=== PATIENT | female | born 1985 ===

== ENCOUNTER 2023-07-18 10:39 | Inpatient (IN) | payer OTHER, SELFPAY ==
--- NOTE | ~2023-07-18 | US_ITS ---
EXAMINATION: US ABDOMEN LIMITED CLINICAL INFORMATION: Right upper quadrant pain.. COMPARISON: None available. TECHNIQUE: Real-time imaging of the right upper quadrant abdominal viscera. FINDINGS: PANCREAS: Normal. LIVER: There is a small there is a small echogenic calcification left hepatic lobe measuring 0.3 x 0.3 x 0.4). The liver is normal in size. The liver contour is normal. Parenchymal echogenicity is normal. No focal hepatic lesion. There is no intrahepatic biliary duct dilatation seen. GALLBLADDER: There is a large radiopaque gallstone with echogenic shadowing is noted. It measures approximately 2 cm in maximum dimension. The gallbladder wall thickness is 0.2). COMMON BILE DUCT: Normal in caliber measuring 0.3 cm in diameter. RIGHT KIDNEY: Normal. No hydronephrosis. No renal calculi or focal parenchymal lesions. The kidney measures 10.9 cm in maximum dimension. FREE FLUID: None. Incidental finding of a small right pleural effusion. US/US abdomen limited IMPRESSION: 1. Large gallstone without wall thickening. 2. Small calcification left hepatic lobe. 3. Visualized pancreas, right kidney and CBD is unremarkable. 4. 4. Small right pleural effusion.
--- NOTE | ~2023-07-18 | US_ITS ---
EXAMINATION: US RETROPERITONEAL LIMITED (RENAL ONLY) CLINICAL INFORMATION: Acute kidney injury. COMPARISON: CT abdomen and pelvis 07/18/2023. TECHNIQUE: Real-time imaging of the kidneys. FINDINGS: RIGHT KIDNEY: 10.6 x 5.7 x 5.8 cm (SAG x AP x TRV). The kidney is normal in size, and contour. Renal cortical echogenicity is increased and there is renal cortical thickening. No calculi or focal parenchymal lesions. No hydronephrosis. Small right renal stones seen by CT is not appreciated. LEFT KIDNEY: 11.4 x 6.4 x 5.5 cm (SAG x AP x TRV). The kidney is normal in size, and contour. Renal cortical echogenicity is increased and there is renal cortical thickening. No calculi or focal parenchymal lesions. No hydronephrosis. US/US renal BI IMPRESSION: Echogenic kidneys with renal cortical thickening. Appearance is suggestive of medical renal disease.
--- NOTE | ~2023-07-18 | CT_ITS ---
EXAMINATION: CT ABDOMEN AND PELVIS WITHOUT CONTRAST CLINICAL INFORMATION: Right-sided flank pain COMPARISON: None available. TECHNIQUE: Multidetector volumetric imaging was performed from the superior aspect of the liver through the pubic symphysis. Sagittal and coronal reformatted images were obtained on the technologist's workstation. Evaluation of solid organs is limited given lack of IV contrast and paucity of intra-abdominal fat. This CT examination was performed using dose optimization techniques as appropriate, variously including the following: *Automated exposure control *Adjustment of mA and/or kV according to patient size (this includes techniques or standardized protocols for targeted exams where dose is matched to indication/reason for exam; i.e. extremities or head) *Use of iterative reconstruction technique DLP: 287 mGy-cm FINDINGS: Visualized lung bases demonstrate mild dependent atelectasis with some mild bilateral bronchiectasis. Surgical changes are noted within the right middle lobe. The liver is mildly enlarged demonstrates diffusely decreased attenuation. Small calcified granuloma noted within the left hepatic lobe. Large, approximately 2 cm gallstone noted within otherwise unremarkable appearing gallbladder. The pancreas, spleen and adrenal glands are unremarkable. Symmetrically sized kidneys. There is a 3 mm nonobstructing calculus noted within the midpole the right kidney. No left-sided renal calculi identified. There is no hydronephrosis of either kidney. Normal caliber loops of small and large bowel. There is a small amount of stranding within the right and left paracolic gutter which is nonspecific. A few normal-sized lymph nodes also noted in these regions. Normal caliber abdominal aorta. The bladder is decompressed and therefore not accurately evaluated, however, there does appear to be diffuse bladder wall thickening, nonspecific finding. Unremarkable CT appearance of the uterus. Trace amount of free pelvic fluid is nonspecific but likely physiologic in a female of this age. No inguinal lymphadenopathy. No acute osseous abnormality. CT/CT abdomen pelvis wo IV con IMPRESSION: 1. 3 mm nonobstructing right renal calculus. No left-sided renal calculi. No hydronephrosis of either kidney. 2. Diffusely decreased liver attenuation suggesting hepatic steatosis. Correlation with liver enzymes recommended. 3. Cholelithiasis. 4. Small amount of stranding within the right and left paracolic gutter. A few normal-sized lymph nodes also noted in these regions. These findings are nonspecific. Mesenteric adenitis is within the differential. Clinical correlation recommended. 5. The bladder is decompressed and therefore not accurately evaluated, however, there does appear to be diffuse bladder wall thickening, a nonspecific finding. Correlation with urinary analysis may be warranted. Fleischner guidelines were followed.
--- NOTE | ~2023-07-18 | XR_ITS ---
EXAMINATION: XR CHEST CLINICAL INFORMATION: Interstitial lung disease. COMPARISON: None available. TECHNIQUE: 2 views of the chest were obtained. FINDINGS: Patient is status post previous right lung surgery with suture lines in place within the mid and lower right lung. The right hilar region is obscured which may be related to postoperative change. There is some discoid density seen about the anteroinferior aspect of the right upper lobe. There also appears to be some mild prominence of the right paratracheal soft tissues; however, this may be related to fatty deposition rather than lymphadenopathy. Previous studies are not available for comparison as to whether the findings are acute or chronic. Heart is of normal size. No evidence of pulmonary edema. No pneumothorax or pleural effusion. XR/XR chest 2V IMPRESSION: Post surgical change right lung with portions of the right hilum and heart border obscured which may be postoperative in nature; however, acute process cannot be excluded and comparison with prior imaging from another institution is recommended.
[2023-07-18 10:48] VITALS: BP 144/93; PULSE 111; RESP 19; TEMP 36.6; O2SAT 144; BMI 19.6
--- NOTE | 2023-07-18 13:27 | ED.ABDPAIN ---
HPI - Abdominal Pain General Chief Complaint: Abdominal Pain Stated Complaint: Back Pain ? Kidney Stone Time Seen by Provider: 07/18/23 13:24 Source: patient Mode of arrival: ambulatory Limitations: no limitations History of Present Illness HPI narrative: This is a 37 years old of female presented to the emergency department complaining of right flank pain since Sunday. He denies any fever chills vomiting and diarrhea she has he has history of interstitial lung disease is on prednisone elicited complaint: flank pain Pertinent past history: none Onset (ago): day(s) (3) Pain Consistency: constant Location: R flank Severity: moderate Quality: cramping Radiation: none Exacerbating factors: nothing Related Data Home Medications Medication Instructions Recorded Confirmed aripiprazole 5 mg tablet 5 mg PO DAILY 07/18/23 07/18/23 clonazepam 1 mg tablet 1 mg PO BID 07/18/23 07/18/23 prednisone 10 mg tablet 25 mg PO DAILY 07/18/23 07/18/23 Allergies Allergy/AdvReac Type Severity Reaction Status Date / Time No Known Allergies Allergy Verified 07/18/23 10:47 Review of Systems Constitutional: Reports no additional constitutional complaints Cardiovascular: Reports no additional cardiovascular complaints Hematologic/Lymphatic: Reports no additional hematologic/lymphatic complaints PMFSH Past Medical History PMFSH Narrative: This is still none disease Social History Social History Smoked in Last 30 Days: Yes Use of substances other than those prescribed or required for medical reasons: Yes Substance Use Type: Marijuana Advance Directives: No Patient : No Physical Exam ED Vital Signs: Vital Signs - 24 hr 07/18/23 10:48 07/18/23 13:39 07/18/23 16:00 Temperature 98 F 97.8 F 97.8 F Pulse Rate 111 H 100 108 H Respiratory Rate 19 18 18 Blood Pressure 144/93 H 91/63 106/69 Pulse Oximetry 144 H 100 100 Oxygen Delivery Method Room Air Room Air Room Air BMI result Body Mass Index 19.6 Const General: cooperative, comfortable and no acute distress Nutritional Appearance: average body habitus Orientation/consciousness: patient oriented x3 Limitations: no limitations HENMT Head: Yes normal to inspection General nose exam: Normal external nose present Face and sinus: Yes normal facial exam Mouth: Normal oral and palatal mucosa present Neck Neck: Yes normal visual inspection Chest Chest palpation & inspection: normal inspection of the chest Resp Effort & Inspection: normal respiratory effort Auscultation: clear to auscultation bilaterally Cardio Jugular venous distension: no JVD Rate: regular rate Rhythm: regular rhythm GI Inspection: Yes normal to inspection Palpation (GI): Soft to palpation, not firm, nontender and no guarding Auscultation: normal bowel sounds Skin General skin exam: no rashes or lesions noted and elasticity normal Lesions: no lesions Rashes: no rashes Neuro General: patient oriented x3 Medical Decision Making Medical Decision Making [facility] Narrative: Patient presented with the right flank pain we will get the labs UA and CT and reassess Differential Diagnosis Differential Diagnoses: The differential diagnosis associated with the presentation includes Kidney stone/pyelonephritis Admission/Observation Consideration of admission/observation: Escalation of care including admission/observation considered Consult Healthcare Provider Management of the patient was discussed with: Hospitalist dr Khoury Lab Data [facility] Lab Attestation statement: I reviewed the patient's lab results. 07/18/23 14:41 07/18/23 14:41 Labs: Lab Results 07/18/23 07/18/23 Range/Units 14:41 15:53 WBC 11.5 H (4.8-10.8) X10*3/uL RBC 3.60 L (4.20-5.50) X10*6/uL Hgb 10.6 L (12.0-16.0) g/dl Hct 30.3 L (37.0-47.0) % MCV 84.2 (80.0-98.0) fL MCH 29.4 (27.0-33.0) pg MCHC 35.0 (31.0-35.0) g/dl RDW 13.4 (11.0-16.0) % Plt Count 116 L (160-400) X10*3/uL MPV 10.4 (9.4-12.3) fL Immature Gran % (Auto) Cancelled Neut % (Auto) Cancelled Lymph % (Auto) Cancelled [place] % (Auto) Cancelled Eos % (Auto) Cancelled Baso % (Auto) Cancelled Lymph # (Auto) Cancelled [place] # (Auto) Cancelled Eos # (Auto) Cancelled Baso # (Auto) Cancelled Abs Immat Gran (auto) Cancelled Absolute Neuts (auto) Cancelled Absolute Nucleated RBC 0.000 (0.0-0.012) X10*3/uL Nucleated RBC % (auto) 0.0 (0.0-0.2) /100WBC Neutrophils % (Manual) 77 H (45-73) % Band Neutrophils % 9 H (3-5) % Lymphocytes % (Manual) 2 L (20-40) % Monocytes % (Manual) 8 (2-11) % Eosinophils % (Manual) 1 (0-4) % Metamyelocytes % 2 % Myelocytes % 1 % Abs Neuts (Manual) 9.9 H (2.0-8.3) X10*3/uL Lymphocytes # (Manual) 0.2 L (1.2-4.9) X10*3/uL Monocytes # (Manual) 0.9 (0.1-1.2) X10*3/uL Eosinophils # (Manual) 0.1 (0.0-0.4) X10*3/uL Metamyelocytes # 0.2 X10*3/uL Myelocytes # 0.1 X10*/uL Toxic Vacuolation PRESENT Dohle Bodies PRESENT Platelet Estimate SLIGHTLY DECREASED (NORMAL) Plt Morphology Comment NORMAL RBC Morphology NOTED Earle Cells 1+ (0-2) /OIF Sodium 135 (135-145) mmol/L Potassium 3.2 L (3.3-5.1) mmol/L Chloride 100 (96-108) mmol/L Carbon Dioxide 20 L (22-29) mmol/L Anion Gap 18 (12-20) BUN 41 H (9-16) mg/dL Creatinine 3.83 H (0.5-1.4) mg/dL Estim Creat Clear Calc 12.3 Estimated GFR 13 Random Glucose 98 (60-115) mg/dL Calcium 8.6 (8.4-10.2) mg/dL Total Bilirubin 1.5 H (0.0-1.0) mg/dL AST 31 (5-31) U/L ALT 19 (0-31) U/L Alkaline Phosphatase 159 H (39-117) U/L Total Protein 6.0 L (6.5-8.0) g/dL Albumin 2.7 L (3.5-5.0) g/dL Beta HCG, Quant < 2 mIU/mL Urine Color Dark Yellow Urine Appearance Turbid Urine pH 5.5 (5.0-9.0) Ur Specific [place] 1.020 (1.005-1.025) Urine Protein 300 (3+) H (Neg-Trace) mg/dL Urine Glucose (UA) Negative (Negative) mg/dL Urine Ketones Trace (Negative) mg/dL Urine Blood Moderate (2+) H (Negative) Urine Nitrite Negative (Negative) Ur Leukocyte Esterase Moderate (2+) H (Negative) Urine RBC >20 H (0-2) /HPF Urine WBC >50 H (0-5) /HPF Ur Squamous Epith Cells 6-10 (0-2) /HPF Urine Bacteria 4+ (None Seen) Hyaline Casts >20 (0-2) /LPF Independent Interpretation I performed an independent interpretation of an: CT Scan Interpretation: no hydro Radiology Impression Discussion of test interpretation with radiology: I have reviewed the radiologist's reading. Radiologist Impression: The bladder is decompressed and therefore not accurately evaluated, however, there does appear to be diffuse bladder wall thickening, nonspecific finding. Unremarkable CT appearance of the uterus. Trace amount of free pelvic fluid is nonspecific but likely physiologic in a female of this age. No inguinal lymphadenopathy. No acute osseous abnormality. CT/CT abdomen pelvis wo IV con IMPRESSION: 1. 3 mm nonobstructing right renal calculus. No left-sided renal calculi. No hydronephrosis of either kidney. 2. Diffusely decreased liver attenuation suggesting hepatic steatosis. Correlation with liver enzymes recommended. 3. Cholelithiasis. 4. Small amount of stranding within the right and left paracolic gutter. A few normal-sized lymph nodes also noted in these regions. These findings are nonspecific. Mesenteric adenitis is within the differential. Clinical correlation recommended. 5. The bladder is decompressed and therefore not accurately evaluated, however, there does appear to be diffuse bladder wall thickening, a nonspecific finding. Correlation with urinary analysis may be warranted. Fleischner guidelines were followed. Medications Administered Discontinued Medications Generic Name Dose Route Start Last Admin Trade Name Freq PRN Reason Stop Dose Admin Sodium Chloride 1,000 mls @ 999 mls/hr 07/18/23 15:45 07/18/23 16:11 Ns IVCONT 07/18/23 16:45 999 mls/hr .Q1H1M CIRO Administration Ceftriaxone Sodium 1 gm/ 50 mls @ 100 mls/hr 07/18/23 16:27 07/18/23 16:38 Sodium Chloride IV 07/18/23 16:56 100 mls/hr ONCE ONE Administration Potassium Chloride 20 meq 07/18/23 16:08 07/18/23 16:37 Potassium Chloride Er 20 Meq Tab.Er.Prt PO 07/18/23 16:09 20 meq ONCE ONE Administration Discharge Plan Discharge Clinical Impression: Acute hypokalemia Acute renal failure Qualifiers: Acute renal failure type: unspecified Qualified Code(s): N17.9 - Acute kidney failure, unspecified UTI (urinary tract infection) Qualifiers: Urinary tract infection type: site unspecified Hematuria presence: with hematuria Qualified Code(s): N39.0 - Urinary tract infection, site not specified Proteinuria Qualifiers: Proteinuria type: isolated Isolated proteinuria type: without specific morphologic lesion Qualified Code(s): R80.0 - Isolated proteinuria Patient Disposition: Admitted As Inpatient
[2023-07-18 13:39] VITALS: BP 91/63; PULSE 100; RESP 18; TEMP 36.6; O2SAT 100
--- NOTE | 2023-07-18 13:50 | PC.NURSE ---
a&ox3, vss and up to date. pt slightly tachycardic at this time. pt c/o 04/16 bilateral abdominal/flank pain. pt states sx began on sunday. pt also c/o nausea/vomiting/fevers/chills. pt currently afebrile at this time. abdomen tender upon palpation. normoactive bs noted upon palpation. pt denies urinary sx at this time aside from difficulty initiating urine output. pt currently resting in no apparent distress at this time. respirations even and unlabored. call hudson placed within reach.
--- NOTE | 2023-07-18 14:42 | PC.NURSE ---
tech obtained urine and ag labs. tech also bladder scanned pt - 2ml of urine displayed on scan. provider aware at this time.
--- NOTE | 2023-07-18 15:05 | PC.NURSE ---
pt awaiting CT but per ED provider, pt cannot go to CT until urine is drawn. phlebotomy reached out to tech and stated amount of urine was insufficient for accurate results. provider aware. pt being instructed to drink PO fluids at this time.
[2023-07-18 15:16] LABS: Alanine Aminotransferase 19 U/L (0-31); Albumin Level 2.7 g/dL (3.5-5.0); Alkaline Phosphatase 159 U/L (39-117); Anion Gap 18 (12-20); Aspartate Amino Transferase 31 U/L (5-31); Bilirubin Total 1.5 mg/dL (0.0-1.0); Blood Urea Nitrogen 41 mg/dL (9-16); Calcium 8.6 mg/dL (8.4-10.2); Carbon Dioxide 20 mmol/L (22-29); Chloride 100 mmol/L (96-108); Creatinine Clr Calc Pharmacy 12.3; Estimated Glomerular Filt Rate 13; Glucose Random 98 mg/dL (60-115); Potassium 3.2 mmol/L (3.3-5.1); Sodium 135 mmol/L (135-145)
[2023-07-18 15:17] LABS: HCG Quantitative < 2 mIU/mL
--- NOTE | 2023-07-18 15:30 | PC.NURSE ---
pt currently in CT - urine obtained and sent to lab.
[2023-07-18 16:00] VITALS: BP 106/69; PULSE 108; RESP 18; TEMP 36.6; O2SAT 100
[2023-07-18 16:08] LABS: Appearance Urine Turbid; Color Urine Dark Yellow; Glucose Urine UA Negative (Negative); Leukocyte Esterase Urine Moderate (2+) (Negative); Nitrite Urine Negative (Negative); PH 5.5 (5.0-9.0); UMIC TRIGGER UACC YES; Urine Blood Moderate (2+) (Negative); Urine Ketones Trace mg/dL (Negative); Urine Protein 300 (3+) mg/dL (Neg-Trace)
[2023-07-18 16:21] LABS: Bacteria Urine 4+ (None Seen); Hyaline Casts Urine >20 /LPF (0-2); RBC Urine >20 /HPF (0-2); UACC Culture Trigger YES; WBC Urine >50 /HPF (0-5)
[2023-07-18] MEDS: Potassium Chloride ER 20 MEQ TAB.ER.PRT PO (16:37)
[2023-07-18] MEDS: cefTRIAXone sodium 1 GM in 0.9 % Sodium Chloride 50 ML IV (16:38)
--- NOTE | 2023-07-18 16:41 | PC.NURSE ---
medication administered per provider order.
--- NOTE | 2023-07-18 16:42 | PC.NURSE ---
admitting provider bedside speaking w/ pt. pt aware of plan of care at this time. pt unable to swallow medication - provider states hey will order powder form. will administer when able.
[2023-07-18 17:03] VITALS: BP 94/67; PULSE 108; RESP 16; O2SAT 99
--- NOTE | 2023-07-18 17:11 | P.HPHOSP_ITS ---
History of Present Illness Date of Service: 07/18/23 Attending physician on admission: Manuel Khoury Chief Complaint: right flank pain 37-year-old female with a history of asthma, chronic lung disease which she believes is interstitial lung disease presents to the ED earlier today for evaluation of right flank pain. She states the pain lasted from Sunday until Sunday radiating around to the right side of the abdomen. She believes she was passing a kidney stone so she was taking ibuprofen. However, yesterday, developed right-sided abdominal pain with associated dysuria, hematuria, decreased urinary output, and intermittent subjective fevers with sweats. She states she has also had a cough but this has been longstanding and she was recently started on prednisone by her imaging scheduler for this. She is endorsing nausea but no vomiting. No diarrhea, melena, hematochezia, lightheadedness, palpitations, shortness of breath, or chest pain. She denies any history of kidney disease. Denies any recent illness. On arrival, patient tachycardic to 111, vitals otherwise stable. She has leukocytosis of 11.5 with 9% bandemia, normocytic anemia with H/H 10.6/30.3%. Platelet count 116. Creatinine 3.83, baseline unknown. BUN 41. Sodium 135, potassium 3.2, chloride 100, CO2 20. Total bilirubin 1.5, AST/ALT within normal limits. Albumin 2.7. Urinalysis significant for 2+ blood, 2+ leukocytes, negative nitrites, 3+ protein, positive urinary sediment, 4+ bacteria. CT abdomen/pelvis shows 3 mm nonobstructing right renal calculus without any hydronephrosis or obstruction. There is also hepatic steatosis, cholelithiasis, and a small amount of stranding within the right and left paracolic gutter with possible mesenteric adenitis. There is noted to be diffuse bladder wall thickening. In the ED, received 1g IV ceftriaxone, 20meq potassium chloride, and 1 L IV NS. She reports he has been eating and drinking without difficulty. Review of Systems 2 Review of Systems: General: No fevers, malaise, unintentional weight loss Cardiovascular: No chest pain, palpitations, or leg edema Respiratory: No shortness of breath, wheezing. +cough GI: +nausea, +abd pain. No vomiting, diarrhea, constipation, melena, hematochezia : + dysuria, + hematuria, +decreased urinary output MSK: No myalgia, back pain. +R flank pain Neuro: No headaches, weakness, paresthesias Skin: No rashes or lesions [facility] Medical History Asthma Chronic lung disease Social History Smoked in Last 30 Days: Yes Use of substances other than those prescribed or required for medical reasons: Yes Substance Use Type: Marijuana Advance Directives: No Patient : No Meds Allergies Allergy/AdvReac Type Severity Reaction Status Date / Time No Known Allergies Allergy Verified 07/18/23 10:47 Active Medications: Current Medications Acetaminophen (Acetaminophen 325 Mg Tablet) 650 mg PO Q6H PRN PRN Reason: Pain, Mild (Pain Scale 1-3) Aripiprazole (Aripiprazole 5 Mg Tablet) 5 mg PO DAILY CIRO Clonazepam (Clonazepam 1 Mg Tablet) 1 mg PO BID [facility] Docusate Sodium (Docusate Sodium 100 Mg Capsule) 100 mg PO DAILY PRN PRN Reason: Constipation Heparin Sodium (Porcine) (Heparin Sodium,Porcine 5,000 Unit/Ml Vial) 5,000 unit SUBCUT Q12H CIRO Ceftriaxone Sodium 1 gm/ (Sodium Chloride) 50 mls @ 100 mls/hr IV Q24H CIRO Sodium Chloride (Ns) 1,000 mls @ 100 mls/hr IVCONT .Q10H CIRO Ondansetron HCl (Ondansetron Hcl 4 Mg/2 Ml Vial) 4 mg IVPUSH Q8H PRN PRN Reason: Nausea and Vomiting Prednisone (Prednisone 5 Mg Tablet) 25 mg PO DAILY [facility] Sodium Chloride (0.9 % Sodium Chloride Flush 3 Ml Syringe) 3 ml IVFLUSH QSHIFT CIRO Home Medications Medication Instructions Recorded Confirmed Last Taken Type aripiprazole 5 mg tablet 5 mg PO DAILY 07/18/23 07/18/23 Unknown History clonazepam 1 mg tablet 1 mg PO BID 07/18/23 07/18/23 Unknown History prednisone 10 mg tablet 25 mg PO DAILY 07/18/23 07/18/23 Unknown History Physical Exam 2 Vital Signs and Narrative: Vital Signs: Last Vital Signs Temp 97.8 F 07/18/23 16:00 Pulse 108 H 07/18/23 16:00 Resp 18 07/18/23 16:00 BP 106/69 07/18/23 16:00 Pulse Ox 100 07/18/23 16:00 O2 Del Method Room Air 07/18/23 16:00 BMI result Body Mass Index 19.6 Constitutional - Awake and Alert, No apparent distress Eyes - PERRLA, EOMI Cardiovascular - S1S2, RRR, No edema Respiratory - Normal lung expansion, Normal respiratory effort, No respiratory distress, wheezing bilateral lower lobes Gastrointestinal - diffuse abd pain without greatest in RUQ without guarding or rebound. ND; +BS - Mild R CVA tenderness Extremities - no calf tenderness bilaterally, no swelling Skin - Warm/Dry Neurological - Alert & oriented x3 Psychological - Appropriate affect Results Labs 07/18/23 14:41 07/18/23 14:41 Labs: Laboratory Results - last 24 hr 07/18/23 07/18/23 14:41 15:53 MCV 84.2 MCH 29.4 MCHC 35.0 RDW 13.4 Plt Count 116 L MPV 10.4 Immature Gran % (Auto) Cancelled Neut % (Auto) Cancelled Lymph % (Auto) Cancelled [place] % (Auto) Cancelled Eos % (Auto) Cancelled Baso % (Auto) Cancelled Lymph # (Auto) Cancelled [place] # (Auto) Cancelled Eos # (Auto) Cancelled Baso # (Auto) Cancelled Abs Immat Gran (auto) Cancelled Absolute Neuts (auto) Cancelled Absolute Nucleated RBC 0.000 Nucleated RBC % (auto) 0.0 Neutrophils % (Manual) 77 H Band Neutrophils % 9 H Lymphocytes % (Manual) 2 L Monocytes % (Manual) 8 Eosinophils % (Manual) 1 Metamyelocytes % 2 Myelocytes % 1 Abs Neuts (Manual) 9.9 H Lymphocytes # (Manual) 0.2 L Monocytes # (Manual) 0.9 Eosinophils # (Manual) 0.1 Metamyelocytes # 0.2 Myelocytes # 0.1 Toxic Vacuolation PRESENT Dohle Bodies PRESENT Platelet Estimate SLIGHTLY DECREASED Plt Morphology Comment NORMAL RBC Morphology NOTED Earle Cells 1+ (0-2) Anion Gap 18 Estim Creat Clear Calc 12.3 Estimated GFR 13 Random Glucose 98 Calcium 8.6 Total Bilirubin 1.5 H AST 31 ALT 19 Alkaline Phosphatase 159 H Total Protein 6.0 L Albumin 2.7 L Beta HCG, Quant < 2 Urine Color Dark Yellow Urine Appearance Turbid Urine pH 5.5 Ur Specific [place] 1.020 Urine Protein 300 (3+) H Urine Glucose (UA) Negative Urine Ketones Trace Urine Blood Moderate (2+) H Urine Nitrite Negative Ur Leukocyte Esterase Moderate (2+) H Urine RBC >20 H Urine WBC >50 H Ur Squamous Epith Cells 6-10 Urine Bacteria 4+ Hyaline Casts >20 Imaging Radiologist's Impressions: Impressions Abdomen/Pelvis CT 07/18/23 15:42 IMPRESSION: 1. 3 mm nonobstructing right renal calculus. No left-sided renal calculi. No hydronephrosis of either kidney. 2. Diffusely decreased liver attenuation suggesting hepatic steatosis. Correlation with liver enzymes recommended. 3. Cholelithiasis. 4. Small amount of stranding within the right and left paracolic gutter. A few normal-sized lymph nodes also noted in these regions. These findings are nonspecific. Mesenteric adenitis is within the differential. Clinical correlation recommended. 5. The bladder is decompressed and therefore not accurately evaluated, however, there does appear to be diffuse bladder wall thickening, a nonspecific finding. Correlation with urinary analysis may be warranted. Fleischner guidelines were followed. Assessment and Plan (1) Acute renal failure: Qualifiers: Acute renal failure type: unspecified Qualified Code(s): N17.9 - Acute kidney failure, unspecified Status: Acute (2) UTI (urinary tract infection): Qualifiers: Hematuria presence: with hematuria Urinary tract infection type: site unspecified Qualified Code(s): N39.0 - Urinary tract infection, site not specified; R31.9 - Hematuria, unspecified Status: Acute (3) Proteinuria: Qualifiers: Isolated proteinuria type: without specific morphologic lesion P roteinuria type: isolated Qualified Code(s): R80.0 - Isolated proteinuria Status: Acute (4) Acute hypokalemia: Status: Acute Plan 37-year-old female with a history of asthma, chronic lung disease which she believes is interstitial lung disease admitted for UTI with OUSMANE. #Acute kidney injury- etiology unclear at this time -creatinine 3.83, BUN 41. Baseline unknown. 3+ proteinuria -urine creatinine and urine sodium pending -continue IVF -avoid nephrotoxins -low-sodium diet -strict I&O -nephrology consult -follow renal function, electrolytes # acute UTI -no sepsis -UA with 2+ leukocytes, negative nitrites, 2+ blood, 3+ protein, positive urinary sediment, 4+ bacteria -IV ceftriaxone (initiated 07/19) -follow CBC, cultures #Mild hypokalemia -K3.2, likely r/t above -repleted, follow lytes #unspecified chronic lung disease -pt believes ILD diagnosed at age 3 (records requested from [facility]) -has chronic cough- robitussin prn -continue prednisone #Mild intermittent asthma -albuterol prn #Nicotine dependence -declines nrt -smoking cessation counseling DVT prophylaxis- heparin Full code Patient requires inpatient stay of at least 2 midnights for management of acute kidney injury with unclear etiology and hypokalemia requiring IV fluid resuscitation, expert consultation, and close monitoring of renal function electrolytes Time Spent With Patient Time: Total time managing care of this patient today ____ minutes. Quality Stroke Does the patient have a stroke diagnosis?: No VTE Prior VTE?: No VTE Risk Level:: Medical - moderate - high VTE Device Contraindication: Treatment Not Indicated VTE Drug Contraindication: N/A - Med Ordered
--- NOTE | 2023-07-18 17:12 | PHA.MEDREC ---
Pharmacy Consult ? Medication Reconciliation Pharmacy has completed the medication reconciliation. Patient confirmed medications on claim history. Reports she does not take venlafaxine. Patient then reported she takes Prednisone 25 mg however this is not on her claim history. Stephanie Buitrago, RandiD
[2023-07-18] MEDS: Potassium Chloride Packet 20 MEQ PACKET PO (17:21)
[2023-07-18] MEDS: Heparin Sodium,Porcine 5,000 UNIT/ML VIAL 5000 UNIT SUBCUT (17:21)
--- NOTE | 2023-07-18 17:24 | PC.NURSE ---
medication administered per provider order. resting comfortably in no apparent distress. respirations even and unlabored. call hudson placed within reach.
[2023-07-18] MEDS: Acetaminophen 325 MG TABLET 650 MG PO (18:06)
[2023-07-18] MEDS: 0.9 % Sodium Chloride 1,000 ML 100 ML IVCONT (18:07)
--- NOTE | 2023-07-18 19:20 | PC.NURSE ---
pt still rating headache pain an 8/10 despite medication administration.
--- NOTE | 2023-07-18 19:27 | PC.NURSE ---
This RN assumed care of patient at 1900. Patient alert and oriented, able to make needs known, was provided food
[2023-07-18 19:31] VITALS: BP 100/67; PULSE 102; RESP 18; TEMP 36.8; O2SAT 99
[2023-07-18] MEDS: clonazePAM 1 MG TABLET PO (20:26)
--- NOTE | 2023-07-18 20:27 | PC.NURSE ---
patient medicated per MAR.
--- NOTE | 2023-07-18 22:41 | PC.NURSE ---
Patient medicated per MAR. Patient's BP continued to rise while waiting for ambulance, patient medicated per MAR with Morphine
[2023-07-18] MEDS: traMADoL HCL 50 MG TABLET 25 MG PO (23:57)
[2023-07-19] VITALS: BP 90/61; PULSE 101; RESP 18; O2SAT 99
--- NOTE | 2023-07-19 00:06 | PC.NURSE ---
Patient walked to the bathroom with tech with steady gait. Patient AOx4, c/o 9/10 pain in abdomen. Patient medicated per DEC and MD French aware, plan of care ongoing
--- NOTE | 2023-07-19 03:55 | PC.NURSE ---
Report given at this time to Rachel CLARKE
[2023-07-19 04:23] VITALS: BMI 19.6
[2023-07-19] MEDS: traMADoL HCL 50 MG TABLET 25 MG PO ×2 (04:45→17:26)
[2023-07-19] MEDS: 0.9 % Sodium Chloride 1,000 ML 100 ML IVCONT (04:47)
[2023-07-19 07:09] VITALS: BP 91/53; PULSE 109; RESP 18; TEMP 36; O2SAT 96
[2023-07-19] MEDS: predniSONE 5 MG TABLET 25 MG PO (07:42)
[2023-07-19] MEDS: clonazePAM 1 MG TABLET PO ×2 (07:42→20:34)
[2023-07-19] MEDS: ARIPiprazole 5 MG TABLET PO (07:42)
[2023-07-19 08:41] LABS: Alanine Aminotransferase 16 U/L (0-31); Albumin Level 2.3 g/dL (3.5-5.0); Alkaline Phosphatase 160 U/L (39-117); Anion Gap 15 (12-20); Aspartate Amino Transferase 28 U/L (5-31); Bilirubin Total 1.5 mg/dL (0.0-1.0); Blood Urea Nitrogen 45 mg/dL (9-16); Calcium 7.5 mg/dL (8.4-10.2); Carbon Dioxide 16 mmol/L (22-29); Chloride 107 mmol/L (96-108); Creatinine Clr Calc Pharmacy 11.2; Estimated Glomerular Filt Rate 12; Glucose Random 118 mg/dL (60-115); Potassium 2.9 mmol/L (3.3-5.1); Sodium 135 mmol/L (135-145); Total Protein 5.3 g/dL (6.5-8.0)
[2023-07-19 09:13] LABS: Hematocrit 29.2 % (37.0-47.0); Mean Corpuscular HGB Conc 34.2 g/dl (31.0-35.0); Mean Corpuscular Volume 84.6 fL (80.0-98.0); Mean Platelet Volume 11.1 fL (9.4-12.3); Red Blood Count 3.45 X10*6/uL (4.20-5.50); Red Cell Distribution Width 13.7 % (11.0-16.0); White Blood Count 8.1 X10*3/uL (4.8-10.8)
[2023-07-19 09:17] LABS: Platelet Count 83 X10*3/uL (160-400)
[2023-07-19 09:36] LABS: C Reactive Protein 38.79 mg/dL (< or = 0.50); Magnesium 1.6 mg/dL (1.6-2.6)
[2023-07-19] MEDS: Potassium Chloride ER 20 MEQ TAB.ER.PRT 40 MEQ PO (09:43)
[2023-07-19 09:50] LABS: HBS Num1 20.33 mIU/mL (0-7.99); HBc Num1 0.09 S/CO (0.00-0.79); HBsAGNum1 0.66 S/CO (0.00-0.99); Hepatitis B Core Antibody Nonreactive (Nonreactive); Hepatitis B Surface Antigen Negative (Negative); ~HepC Num1 0.05 S/CO (0.00-0.79); ~Hepatitis B Surface Antibody REACTIVE (Nonreactive); ~Hepatitis C Antibody Nonreactive (Nonreactive)
[2023-07-19 10:12] LABS: Procalcitonin 31.52 ng/mL
[2023-07-19] MEDS: ondansetron HCL 4 MG/2 ML VIAL IVPUSH (10:16)
--- NOTE | 2023-07-19 11:02 | MHC.CM.PN ---
CM MET WITH PT WITH A RN ORTHO PT REPORTS SHE LIVES ALONE AND IS INDEPENDENT WITH CARE SHE HAS A CPAP ONLY FOR DME SHE HAS NO HOME SERVICES PT REPORTS SHE HAS A HCP NAMING HER MOTHER HER AGENT, COPY REQUESTED PT REPORTS SHE GOES [facility] [place] FOR PRIMARY CARE, SHE DOES NOT KNOW THE PCPS NAME DCP: HOME NO SERVICES VIA PRIVATE TRANSPORT
[2023-07-19] MEDS: 0.9 % Sodium Chloride 1,000 ML 150 ML IVCONT ×3 (11:57→23:00)
[2023-07-19 15:51] VITALS: BP 93/61; PULSE 90; RESP 18; TEMP 36.1; O2SAT 96
--- NOTE | 2023-07-19 16:58 | HO.PM.IMPN ---
Subjective Subjective Date of Service: 07/19/23 Interval History: This history was taken in Albanian from the patient. Denies cough or dyspnea Ongoing R flank pain No N/V Review of Systems Review of Systems: Yes all other systems are reviewed and are negative Physical Exam Vital Signs: Vital Signs: Last Vital Signs Temp 96.9 F 07/19/23 15:51 Pulse 90 07/19/23 15:51 Resp 18 07/19/23 15:51 BP 93/61 07/19/23 15:51 Pulse Ox 96 07/19/23 15:51 O2 Del Method Room Air 07/19/23 15:51 BMI result Body Mass Index 19.6 Gen: in no acute distress HEENT: sclera anicteric, moist mucus membranes Neck: supple Lungs: clear to auscultation bilaterally Heart: regular rate and rhythm, no murmurs Abd: soft, non-tender, non-distended Ext: no edema Skin: warm/well-perfused Neuro: alert and oriented x3, no focal findings Psych: appropriate affect Objective Data Active Medications Acetaminophen (Acetaminophen 325 Mg Tablet) 650 mg PO Q6H PRN PRN Reason: Pain, Mild (Pain Scale 1-3) Last Admin: 07/18/23 18:06 Dose: 650 mg Documented By: ANN-MARIE Aripiprazole (Aripiprazole 5 Mg Tablet) 5 mg PO DAILY [facility] Last Admin: 07/19/23 07:42 Dose: 5 mg Documented By: ARGENTINA Clonazepam (Clonazepam 1 Mg Tablet) 1 mg PO BID [facility] Last Admin: 07/19/23 07:42 Dose: 1 mg Documented By: ARGENTINA Docusate Sodium (Docusate Sodium 100 Mg Capsule) 100 mg PO DAILY PRN PRN Reason: Constipation Heparin Sodium (Porcine) (Heparin Sodium,Porcine 5,000 Unit/Ml Vial) 5,000 unit SUBCUT Q12H [facility] Last Admin: 07/19/23 04:47 Dose: Not Given Documented By: ARGENTINA Non-Admin Reason: Patient Refused Ceftriaxone Sodium 1 gm/ (Sodium Chloride) 50 mls @ 100 mls/hr IV Q24H [facility] Sodium Chloride (Ns) 1,000 mls @ 150 mls/hr IVCONT .Q6H40M [facility] Last Admin: 07/19/23 11:57 Dose: 150 mls/hr Documented By: ARGENTINA Ondansetron HCl (Ondansetron Hcl 4 Mg/2 Ml Vial) 4 mg IVPUSH Q8H PRN PRN Reason: Nausea and Vomiting Last Admin: 07/19/23 10:16 Dose: 4 mg Documented By: ARGENTINA Prednisone (Prednisone 5 Mg Tablet) 25 mg PO DAILY [facility] Last Admin: 07/19/23 07:42 Dose: 25 mg Documented By: ARGENTINA Sodium Chloride (0.9 % Sodium Chloride Flush 3 Ml Syringe) 3 ml IVFLUSH QSHIFT [facility] Last Admin: 07/19/23 15:52 Dose: Not Given Documented By: ARGENTINA Non-Admin Reason: IV Running Tramadol HCl (Tramadol Hcl 50 Mg Tablet) 25 mg PO Q4H PRN PRN Reason: Pain, Moderate(Pain Scale 4-6) Last Admin: 07/19/23 04:45 Dose: 25 mg Documented By: ARGENTINA Labs 07/19/23 08:52 07/19/23 07:22 Labs: Laboratory Results - last 24 hr 07/19/23 07/19/23 07:22 08:52 MCV 84.6 MCH 29.0 MCHC 34.2 RDW 13.7 Plt Count 83 L D MPV 11.1 Absolute Nucleated RBC 0.000 Nucleated RBC % (auto) 0.0 Hold Purple Top SEE NOTE Anion Gap 15 Estim Creat Clear Calc 11.2 Estimated GFR 12 Random Glucose 118 H Calcium 7.5 L D Magnesium 1.6 Total Bilirubin 1.5 H AST 28 ALT 16 Alkaline Phosphatase 160 H C-Reactive Protein 38.79 H Total Protein 5.3 L Albumin 2.3 L Procalcitonin 31.52 Hep Bs Antigen Negative Hep Bs Antibody REACTIVE Hep B Core Total Ab Nonreactive Hepatitis C Ab (EIA) Nonreactive Microbiology Microbiology Results: Microbiology 07/18/23 Unknown Urine Culture - Preliminary Urine clean catch - Urine hernández top Gram negative clarence Assessment and Plan (1) Acute renal failure: Status: Acute Plan d2 37yo F with asthma, chronic lung disease (?ILD) for which she is on longstanding prednisone presenting with flank pain, dysuria, hematuria, tactile fevers + sweats found to have tachycardia, leukocytosis, bandmiea, mild thrombocytopenia, OUSMANE [though baseline Cr unknown] admitted for OUSMANE, UTI OUSMANE - Nephrology consulted, serologic workup ordered, urine studies requested, continue IV NS, recheck BMP in AM, records from [facility] requested UTI - continue ceftriaxone, follow UCx + BCx hypoK - replete, recheck in AM thrombocytopenia - likely due to infection, recheck CBC in AM, hold heparin ILD - request outpt records - on chronic prednisone, per pt for years- if BP drops, would give stress-dose hydrocortisone - CXR mild intermittent asthma - prn albuterol tobacco abuse - declines NRT mood disorder - aripiprazole, clonazepam VTE ppx - SCDs dispo - eventual home In my clinical judgment, the patient requires continued inpatient hospitalization for the following reasons: IV ABX, IV fluids, OUSMANE Time Spent With Patient Time: Total time managing care of this patient today __45__ minutes. Quality Stroke Does the patient have a stroke diagnosis?: No VTE Prior VTE?: No VTE Risk Level:: Medical - moderate - high VTE Device Contraindication: Treatment Not Indicated VTE Drug Contraindication: N/A - Med Ordered
[2023-07-19] MEDS: cefTRIAXone sodium 1 GM in 0.9 % Sodium Chloride 50 ML IV (17:26)
[2023-07-19] MEDS: Omeprazole 20 MG CAPSULE.DR PO (18:34)
[2023-07-19 19:14] VITALS: BP 113/62; PULSE 104; RESP 14; TEMP 36.2; O2SAT 97
[2023-07-19 19:26] LABS: Creatinine Urine 96.18 mg/dL
[2023-07-19 19:48] LABS: Total Protein Urine Random 195 mg/dL (<12)
[2023-07-19] MEDS: 0.9 % Sodium Chloride Flush 3 ML SYRINGE IVFLUSH (20:32)
[2023-07-19] MEDS: Albumin Human 25 % 100 ML IV (20:33)
[2023-07-19] MEDS: Sodium Bicarbonate 650 MG TABLET 1300 MG PO (20:34)
[2023-07-19] MEDS: Acetaminophen 325 MG TABLET 650 MG PO (20:41)
--- NOTE | 2023-07-20 00:35 | CONS_ITS ---
DATE OF SERVICE: 07/19/2023 REASON FOR CONSULTATION: I was asked to see patient to assist in evaluation and management of patient's renal dysfunction as reflected by a BUN and creatinine on admission of 41 and 3.8, and today creatinine is up to 4.22, along with hypokalemia, potassium of 3.2, and a hypoalbuminemic state of an albumin of 2.7. HISTORY OF PRESENT ILLNESS: The patient is a poor historian even with a natural science manager and information reveals that she is a 37-year-old female with a history of asthma and chronic lung disease with what she describes as interstitial lung disease. Apparently, this was diagnosed in [place]. She says she had some biopsies in the past as a young child. I did track down records from [facility] back in 2020. She had a wedge biopsy done, which showed some mild pulmonary fibrosis. She tells me she sees Dr. Manuel Rodriguez as an outpatient and was started on prednisone recently for some ongoing respiratory symptoms. I was unable to track down any renal labs, except for those back in 2020, which showed a creatinine at that time was 0.72. There is nothing else on the [facility] EHR that I could find. She presented to the hospital complaining of right-sided abdominal pain with associated dysuria, hematuria, and states that she was taking a lot of Advil for the pain. She was having some cough and phlegm production and as mentioned, was recently started on prednisone by her commercial illustrator as an outpatient. On admission, she had a relatively severe renal dysfunction as well as other metabolic abnormalities as noted below. PAST MEDICAL HISTORY: Notes asthma and chronic lung disease with interstitial fibrosis. Again, the details are a bit sketchy. MEDICATIONS ON ADMISSION: Included Klonopin and prednisone. CURRENT MEDICATIONS: Noted in the MAR. ALLERGIES: SHE HAS NO KNOWN DRUG ALLERGIES. SOCIAL HISTORY: She has a history of smoking. There is mention made of substance abuse, although the details are unclear. FAMILY HISTORY: Noncontributory. She is not aware of anyone with kidney problems or lung problems in her family. REVIEW OF SYSTEMS: As noted above. PHYSICAL EXAMINATION: VITAL SIGNS: Blood pressure of 116/60 with a heart rate in the 70s. HEAD: Atraumatic and normocephalic. NECK: Supple. Mucous membranes are moist. LUNGS: Show some rhonchi and some basilar rales. CARDIAC: Regular rate and rhythm. ABDOMEN: Soft, nontender with some mild CVA tenderness bilaterally. EXTREMITIES: Shows no edema. LABORATORY DATA: Labs from today show sodium 135, potassium 2.9, chloride 107, bicarb 16, anion gap 15, BUN 45, creatinine 4.22. On admission, BUN and creatinine of 41 and 3.8. Calcium 7.5, total bilirubin 1.5, alkaline phosphatase 160, albumin 2.3. Urine studies showed 3+ protein, moderate amount of blood, red cells and white cells in the urine. Her urine protein creatinine ratio is 2 g of protein per gram of creatinine. Her serologies and immunology all have been ordered and are pending. She had a CAT scan of the abdomen and pelvis, which describes her kidneys to be symmetric in size. There is a 3 mm nonobstructing stone in the right kidney. No hydronephrosis. IMPRESSION: A 37-YEAR-OLD WITH SEVERE RENAL DYSFUNCTION IN THE SETTING OF UNDERLYING HISTORY OF MILD PULMONARY FIBROSIS BY WEDGE BIOPSY 2 YEARS AGO. 1. Severe renal dysfunction. It is unclear whether this is all acute kidney injury or acute on chronic kidney disease, given that we only have renal labs from 2 years ago. Her presentation would raise concern about an acute glomerulonephritis given her active urine sediment. Acute interstitial nephritis would also be in the differential. Acute obstructive uropathy has been ruled out. Multifactorial acute tubular necrosis would also be in the differential given the blood pressure has been low. She may have a component of hypoperfusion. Lastly and perhaps very importantly, she was on a lot of NSAIDs and this can cause both an acute interstitial nephritis as well as compromised renal perfusion and contribute to an ATN picture. NSAIDs have also been associated with significant proteinuria from causing minimal change disease on rare instances. 2. Hypokalemia. This could be due to acute interstitial nephritis with tubular defect. Alternately, she may have dehydration, increased urinary potassium excretion due to distal increased sodium reabsorption. 3. History of questionable pulmonary fibrosis. The details are unclear at this time. 4. Abdominal and flank pain. Unclear whether she may have passed a kidney stone. RECOMMENDATIONS: At this time include proceeding with comprehensive serologic and urine studies. She may need a diagnostic kidney biopsy depending on her clinical course over the next 24-48 hours. We recommend obtaining a chest CT and pulmonary consultation. We would also look to give her some IV albumin given her low serum albumin and worsening renal function. We will follow the patient closely with the team as we sort out the cause of her severe renal dysfunction. Addendum: I did get some records from [facility], which I sent information to the hospitalist by Chris. MD NICOLE Power/JENNIFER / [phone]
[2023-07-20 04:00] VITALS: BP 108/64; PULSE 92; RESP 14; TEMP 37.1; O2SAT 94
[2023-07-20] MEDS: 0.9 % Sodium Chloride 1,000 ML 150 ML IVCONT ×3 (04:11→19:18)
[2023-07-20] MEDS: Omeprazole 20 MG CAPSULE.DR PO ×2 (05:24→15:56)
[2023-07-20 06:24] LABS: Hematocrit 27.3 % (37.0-47.0); Hemoglobin 9.2 g/dl (12.0-16.0); Mean Corpuscular HGB Conc 33.7 g/dl (31.0-35.0); Mean Corpuscular Hemoglobin 28.8 pg (27.0-33.0); Mean Corpuscular Volume 85.3 fL (80.0-98.0); Mean Platelet Volume 11.3 fL (9.4-12.3); Red Cell Distribution Width 13.8 % (11.0-16.0); White Blood Count 7.5 X10*3/uL (4.8-10.8)
[2023-07-20 06:25] LABS: Anion Gap 15 (12-20); Blood Urea Nitrogen 51 mg/dL (9-16); Carbon Dioxide 18 mmol/L (22-29); Chloride 109 mmol/L (96-108); Creatinine Clr Calc Pharmacy 11.5; Estimated Glomerular Filt Rate 12; Glucose Random 80 mg/dL (60-115); Potassium 2.9 mmol/L (3.3-5.1); Sodium 139 mmol/L (135-145)
[2023-07-20 06:29] LABS: Platelet Count 86 X10*3/uL (160-400)
[2023-07-20 06:30] LABS: INTERNATIONAL NORM RATIO 1.2 (0.9-1.1); Prothrombin Time 14.1 SEC (11.1-13.3)
--- NOTE | 2023-07-20 06:35 | PC.NURSE ---
0635 morning labs resulted potassium level is 2.9. MD notified.
[2023-07-20 07:15] VITALS: BP 96/64; PULSE 107; RESP 16; TEMP 36.4; O2SAT 89
[2023-07-20 08:30] LABS: Magnesium 1.7 mg/dL (1.6-2.6)
[2023-07-20] MEDS: clonazePAM 1 MG TABLET PO ×2 (08:31→20:34)
[2023-07-20] MEDS: Sodium Bicarbonate 650 MG TABLET 1300 MG PO ×3 (08:31→20:34)
[2023-07-20] MEDS: Potassium Chloride Packet 20 MEQ PACKET 40 MEQ PO (08:31)
[2023-07-20] MEDS: Potassium Chloride ER 20 MEQ TAB.ER.PRT PO (08:31)
[2023-07-20] MEDS: predniSONE 5 MG TABLET 25 MG PO (08:31)
[2023-07-20] MEDS: Potassium Chloride/H20 10 MEQ/100 ML PIGGYBACK 100 MEQ IV ×2 (08:31→10:20)
[2023-07-20] MEDS: ARIPiprazole 5 MG TABLET PO (08:31)
--- NOTE | 2023-07-20 11:02 | P.PNIM_ITS ---
Subjective Subjective Date of Service: 07/20/23 Interval History: C/o flank pain SCr peaked No fever UCx growing E coli, BCx growing GPCs in clusters This history was taken in Japanese from the patient. Review of Systems Review of Systems: Yes all other systems are reviewed and are negative Physical Exam 2 Vital Signs: Vital Signs: Last Vital Signs Temp 97.6 F 07/20/23 07:15 Pulse 107 H 07/20/23 07:15 Resp 16 07/20/23 07:15 BP 96/64 07/20/23 07:15 Pulse Ox 89 L 07/20/23 07:15 O2 Del Method Room Air 07/20/23 07:15 BMI result Body Mass Index 19.6 Gen: in no acute distress HEENT: sclera anicteric, moist mucus membranes Neck: supple Lungs: clear to auscultation bilaterally Heart: regular rate and rhythm, no murmurs Abd: soft, non-tender, non-distended Ext: no edema Skin: warm/well-perfused Neuro: alert and oriented x3, no focal findings Psych: appropriate affect Objective Data Active Medications Acetaminophen (Acetaminophen 325 Mg Tablet) 650 mg PO Q6H PRN PRN Reason: Pain, Mild (Pain Scale 1-3) Last Admin: 07/19/23 20:41 Dose: 650 mg Documented By: VAMSI Aripiprazole (Aripiprazole 5 Mg Tablet) 5 mg PO DAILY [facility] Last Admin: 07/20/23 08:31 Dose: 5 mg Documented By: ROSA Clonazepam (Clonazepam 1 Mg Tablet) 1 mg PO BID [facility] Last Admin: 07/20/23 08:31 Dose: 1 mg Documented By: ROSA Docusate Sodium (Docusate Sodium 100 Mg Capsule) 100 mg PO DAILY PRN PRN Reason: Constipation Ceftriaxone Sodium 1 gm/ (Sodium Chloride) 50 mls @ 100 mls/hr IV Q24H [facility] Last Infusion: 07/19/23 18:31 Dose: Infused Documented By: ARGENTINA Sodium Chloride (Ns) 1,000 mls @ 150 mls/hr IVCONT .Q6H40M [facility] Last Admin: 07/20/23 04:11 Dose: 150 mls/hr Documented By: VAMSI Linezolid (Zyvox/D5w) 600 mg in 300 mls @ 300 mls/hr IV Q12H [facility] Omeprazole (Omeprazole 20 Mg Capsule.Dr) 20 mg PO BID@0630,1630 [facility] Last Admin: 07/20/23 05:24 Dose: 20 mg Documented By: VAMSI Ondansetron HCl (Ondansetron Hcl 4 Mg/2 Ml Vial) 4 mg IVPUSH Q8H PRN PRN Reason: Nausea and Vomiting Last Admin: 07/19/23 10:16 Dose: 4 mg Documented By: ARGENTINA Prednisone (Prednisone 5 Mg Tablet) 25 mg PO DAILY [facility] Last Admin: 07/20/23 08:31 Dose: 25 mg Documented By: ROSA Sodium Bicarbonate (Sodium Bicarbonate 650 Mg Tablet) 1,300 mg PO TID [facility] Last Admin: 07/20/23 08:31 Dose: 1,300 mg Documented By: ROSA Sodium Chloride (0.9 % Sodium Chloride Flush 3 Ml Syringe) 3 ml IVFLUSH QSHIFT [facility] Last Admin: 07/20/23 08:26 Dose: Not Given Documented By: ROSA Non-Admin Reason: IV Running Tramadol HCl (Tramadol Hcl 50 Mg Tablet) 25 mg PO Q4H PRN PRN Reason: Pain, Moderate(Pain Scale 4-6) Last Admin: 07/19/23 17:26 Dose: 25 mg Documented By: ARGENTINA Labs 07/20/23 05:45 07/20/23 05:45 Labs: Laboratory Results - last 24 hr 07/19/23 07/20/23 18:50 05:45 MCV 85.3 MCH 28.8 MCHC 33.7 RDW 13.8 Plt Count 86 L MPV 11.3 Absolute Nucleated RBC 0.000 Nucleated RBC % (auto) 0.0 PT 14.1 H INR 1.2 H Anion Gap 15 Estim Creat Clear Calc 11.5 Estimated GFR 12 Random Glucose 80 Calcium 8.0 L D Magnesium 1.7 U Random Total Protein 195 H Ur Random Sodium 34.0 Urine Creatinine 96.18 Microbiology Microbiology Results: Microbiology 07/19/23 08:52 Blood Culture - Preliminary Blood - Venous Prelim: GPC Gram Stain only 07/18/23 Unknown Urine Culture - Final Urine clean catch - Urine hernández top Escherichia coli Assessment and Plan (1) Acute renal failure: Status: Acute Plan d3 37yo F with asthma, chronic lung disease (?ILD) for which she is on longstanding prednisone presenting with flank pain, dysuria, hematuria, tactile fevers + sweats found to have tachycardia, leukocytosis, bandmiea, mild thrombocytopenia, OUSMANE [baseline Cr 0.72 09/15/21 at [facility]] admitted for OUSMANE, UTI OUSMANE - Nephrology consulted, serologic workup ordered, FENa 1.1% consistent with intrinsic renal etiology, continue IV NS, recheck BMP in AM UTI, E coli resistant to amp, gent, and SMX-TMP - continue ceftriaxone d3 GPC bacteremia - start linezolid d1, follow speciation + susceptibilities hypoK - replete, recheck in AM thrombocytopenia - likely due to infection, recheck CBC in AM, hold heparin ILD - requested outpt records: lung biopsy at [facility] showed mild-mod fibrosis - on chronic prednisone, per pt for years- if BP drops, would give stress-dose hydrocortisone mild intermittent asthma - prn albuterol tobacco abuse - declines NRT mood disorder - aripiprazole, clonazepam VTE ppx - SCDs dispo - eventual home In my clinical judgment, the patient requires continued inpatient hospitalization for the following reasons: IV ABX, IV fluids, OUSMANE Time Spent With Patient Time: Total time managing care of this patient today ___45_ minutes. Quality Stroke Does the patient have a stroke diagnosis?: No VTE Prior VTE?: No VTE Risk Level:: Medical - moderate - high VTE Device Contraindication: Treatment Not Indicated VTE Drug Contraindication: N/A - Med Ordered
[2023-07-20] MEDS: Linezolid/D5W 600 MG/300 ML PIGGYBACK 300 MG IV ×2 (11:49→23:02)
--- NOTE | 2023-07-20 11:50 | MHC.CM.PN ---
PER MD ROUNDS, PT NOT READY TO DC DCP REMAINS HOME WITH NO SERVICES CM FOLLOWING FOR CHANGING DC NEEDS
[2023-07-20 14:42] LABS: Bilirubin Total 0.7 mg/dL (0.0-1.0); Lactate Dehydrogenase 169 U/L (122-220)
[2023-07-20 15:19] VITALS: BP 110/71; PULSE 106; RESP 19; TEMP 36.6; O2SAT 95
[2023-07-20] MEDS: cefTRIAXone sodium 1 GM in 0.9 % Sodium Chloride 50 ML IV (15:56)
[2023-07-20] MEDS: Acetaminophen 325 MG TABLET 650 MG PO (19:13)
--- NOTE | 2023-07-20 19:31 | PM.PNNEP ---
Subjective Subjective Date of Service: 07/20/23 Interval history: Seen and examined, events noted cont with abd/falnk pain and gen malaise Rec from [place] EHR obtained and lomited info SCr 0.7 ( 2020) Lung Bx mild fobrosis Physical Exam Vital Signs: Vital Signs: Last Vital Signs Temp 97.8 F 07/20/23 15:19 Pulse 106 H 07/20/23 15:19 Resp 19 07/20/23 15:19 BP 110/71 07/20/23 15:19 Pulse Ox 95 07/20/23 15:19 O2 Del Method Room Air 07/20/23 15:19 BMI result Body Mass Index 19.6 Const: General: cooperative, comfortable and no acute distress Nutritional Appearance: average body habitus Orientation/consciousness: patient oriented x3 Limitations: no limitations HEENT: Head: Yes normal to inspection General nose exam: Normal external nose present Face and sinus: Yes normal facial exam Mouth: Normal oral and palatal mucosa present Neck: Neck: Yes normal visual inspection Chest: Chest palpation & inspection: normal inspection of the chest Resp: Effort & Inspection: normal respiratory effort Auscultation: clear to auscultation bilaterally Cardio: Jugular venous distension: no JVD Rate: regular rate Rhythm: regular rhythm GI: Inspection: Yes normal to inspection Palpation (GI): Soft to palpation, not firm, nontender and no guarding Auscultation: normal bowel sounds Skin: General skin exam: no rashes or lesions noted and elasticity normal Lesions: no lesions Rashes: no rashes Neuro: General: patient oriented x3 Objective Data Labs 07/20/23 05:45 07/20/23 05:45 Labs: Laboratory Results - last 24 hr 07/19/23 07/20/23 18:50 05:45 WBC 7.5 RBC 3.20 L Hgb 9.2 L Hct 27.3 L MCV 85.3 MCH 28.8 MCHC 33.7 RDW 13.8 Plt Count 86 L MPV 11.3 Absolute Nucleated RBC 0.000 Nucleated RBC % (auto) 0.0 Smear Path Review SEE NOTE PT 14.1 H INR 1.2 H Sodium 139 Potassium 2.9 L Chloride 109 H Carbon Dioxide 18 L Anion Gap 15 BUN 51 H Creatinine 4.13 H* Estim Creat Clear Calc 11.5 Estimated GFR 12 Random Glucose 80 Calcium 8.0 L D Magnesium 1.7 Total Bilirubin 0.7 Lactate Dehydrogenase 169 U Random Total Protein 195 H Microbiology Microbiology Results: Microbiology 07/19/23 08:47 Blood - Venous Blood Culture - Preliminary No growth after 24 hours. 07/19/23 08:52 Blood - Venous Blood Culture - Preliminary Prelim: GPC Gram Stain only 07/18/23 Unknown Urine clean catch - Urine hernández top Urine Culture - Final Escherichia coli Procedures Date of Service Date of Service: 07/20/23 Assessment & Plan Assessment and plan (1) Acute renal failure: Status: Acute Plan Severe renakl dysfunc: suspect signif component is OUSMANE but hsitory and labs do raise ques of component of CKD ( U/S showing incr echogenicty) and h/o heavy NSAID use Wide DDx for cause of OUSMANE as noted previously AGN: IM-CX mediated ( for eg PIGN); pauci-immune ( ANCA) vs other GNs AIN Mutifact ATN TMA ( decr Plts) Obs r/o by u/s GNB UTI and GPC bactermia: w/u in progress Anmeia and now decr PLTs HypoK: suggests signif tubula dysfunc that can be seen in AIN PLAN: sero as ordered; proceed with kidney Bx early next week; ABx as noted Time Spent With Patient Time: Total time managing care of this patient today ____ minutes. Progress Note: Quality Stroke Does the patient have a stroke diagnosis?: No
[2023-07-20 19:36] VITALS: BP 119/68; PULSE 97; RESP 20; TEMP 36.8; O2SAT 93
[2023-07-21] MEDS: 0.9 % Sodium Chloride 1,000 ML 150 ML IVCONT ×3 (02:32→19:43)
[2023-07-21 03:03] VITALS: BP 94/53; PULSE 95; RESP 20; TEMP 36.7; O2SAT 93
[2023-07-21] MEDS: Omeprazole 20 MG CAPSULE.DR PO ×2 (05:30→16:26)
[2023-07-21] MEDS: ARIPiprazole 5 MG TABLET PO (07:41)
[2023-07-21] MEDS: clonazePAM 1 MG TABLET PO ×2 (07:41→20:10)
[2023-07-21] MEDS: Sodium Bicarbonate 650 MG TABLET 1300 MG PO ×3 (07:41→20:10)
[2023-07-21] MEDS: predniSONE 5 MG TABLET 25 MG PO (07:42)
[2023-07-21] MEDS: traMADoL HCL 50 MG TABLET 25 MG PO (07:54)
[2023-07-21 08:08] VITALS: BP 157/94; PULSE 106; RESP 18; TEMP 36.6; O2SAT 95
[2023-07-21 08:13] LABS: Procalcitonin 13.29 ng/mL
[2023-07-21 08:23] LABS: Anion Gap 15 (12-20); Blood Urea Nitrogen 47 mg/dL (9-16); Carbon Dioxide 15 mmol/L (22-29); Chloride 111 mmol/L (96-108); Creatinine Clr Calc Pharmacy 13.3; Estimated Glomerular Filt Rate 14; Glucose Random 124 mg/dL (60-115); Potassium 3.6 mmol/L (3.3-5.1); Sodium 137 mmol/L (135-145)
[2023-07-21 09:02] LABS: EOS QC POS YES; EOS Stain Quality OK YES; WBC, Counted 100 CELLS
[2023-07-21 09:05] LABS: EOS Counted 0 CELLS
[2023-07-21 09:23] LABS: Alanine Aminotransferase 12 U/L (0-31); Albumin Level 2.4 g/dL (3.5-5.0); Alkaline Phosphatase 152 U/L (39-117); Aspartate Amino Transferase 13 U/L (5-31); Bilirubin Direct 0.2 mg/dL (0.0-0.5); Bilirubin Total 0.4 mg/dL (0.0-1.0); C Reactive Protein 20.33 mg/dL (< or = 0.50); Total Protein 5.4 g/dL (6.5-8.0)
[2023-07-21] MEDS: Linezolid/D5W 600 MG/300 ML PIGGYBACK 300 MG IV ×2 (11:25→23:00)
--- NOTE | 2023-07-21 12:15 | P.PNIM_ITS ---
Subjective Subjective Date of Service: 07/21/23 Interval History: c/o RUQ pain and nausea SCr improving no fever Review of Systems Review of Systems: Yes all other systems are reviewed and are negative Physical Exam 2 Vital Signs: Vital Signs: Last Vital Signs Temp 97.8 F 07/21/23 08:08 Pulse 106 H 07/21/23 08:08 Resp 18 07/21/23 08:08 BP 157/94 H 07/21/23 08:08 Pulse Ox 95 07/21/23 08:08 O2 Del Method Room Air 07/21/23 08:08 BMI result Body Mass Index 19.6 Gen: in no acute distress HEENT: sclera anicteric, moist mucus membranes Neck: supple Lungs: clear to auscultation bilaterally Heart: regular rate and rhythm, no murmurs Abd: soft, RUQ tender, no distension Ext: no edema Skin: warm/well-perfused Neuro: alert and oriented x3, no focal findings Psych: appropriate affect Objective Data Active Medications Acetaminophen (Acetaminophen 325 Mg Tablet) 650 mg PO Q6H PRN PRN Reason: Pain, Mild (Pain Scale 1-3) Last Admin: 07/20/23 19:13 Dose: 650 mg Documented By: MELVIN Aripiprazole (Aripiprazole 5 Mg Tablet) 5 mg PO DAILY [facility] Last Admin: 07/21/23 07:41 Dose: 5 mg Documented By: MIKE Clonazepam (Clonazepam 1 Mg Tablet) 1 mg PO BID [facility] Last Admin: 07/21/23 07:41 Dose: 1 mg Documented By: MIKE Docusate Sodium (Docusate Sodium 100 Mg Capsule) 100 mg PO DAILY PRN PRN Reason: Constipation Ceftriaxone Sodium 1 gm/ (Sodium Chloride) 50 mls @ 100 mls/hr IV Q24H [facility] Last Infusion: 07/20/23 16:51 Dose: Infused Documented By: ROSA Sodium Chloride (Ns) 1,000 mls @ 150 mls/hr IVCONT .Q6H40M [facility] Last Admin: 07/21/23 11:26 Dose: 150 mls/hr Documented By: MIKE Linezolid (Zyvox/D5w) 600 mg in 300 mls @ 300 mls/hr IV Q12H [facility] Last Admin: 07/21/23 11:25 Dose: 300 mls/hr Documented By: MIKE Omeprazole (Omeprazole 20 Mg Capsule.) 20 mg PO BID@0630,1630 [facility] Last Admin: 07/21/23 05:30 Dose: 20 mg Documented By: MELVIN Ondansetron HCl (Ondansetron Hcl 4 Mg/2 Ml Vial) 4 mg IVPUSH Q8H PRN PRN Reason: Nausea and Vomiting Last Admin: 07/19/23 10:16 Dose: 4 mg Documented By: ARGENTINA Prednisone (Prednisone 5 Mg Tablet) 25 mg PO DAILY [facility] Last Admin: 07/21/23 07:42 Dose: 25 mg Documented By: MIKE Sodium Bicarbonate (Sodium Bicarbonate 650 Mg Tablet) 1,300 mg PO TID [facility] Last Admin: 07/21/23 07:41 Dose: 1,300 mg Documented By: MIKE Sodium Chloride (0.9 % Sodium Chloride Flush 3 Ml Syringe) 3 ml IVFLUSH QSHIFT [facility] Last Admin: 07/21/23 07:43 Dose: Not Given Documented By: MIKE Non-Admin Reason: IV Running Tramadol HCl (Tramadol Hcl 50 Mg Tablet) 25 mg PO Q4H PRN PRN Reason: Pain, Moderate(Pain Scale 4-6) Last Admin: 07/21/23 07:54 Dose: 25 mg Documented By: MIKE Labs 07/20/23 05:45 07/21/23 06:28 Labs: Laboratory Results - last 24 hr 07/20/23 07/20/23 07/21/23 05:45 20:15 06:28 Smear Path Review SEE NOTE Anion Gap 15 Estim Creat Clear Calc 13.3 Estimated GFR 14 Random Glucose 124 H Calcium 8.0 L Total Bilirubin 0.7 0.4 Direct Bilirubin 0.2 AST 13 ALT 12 Alkaline Phosphatase 152 H Lactate Dehydrogenase 169 C-Reactive Protein 20.33 H Total Protein 5.4 L Albumin 2.4 L Procalcitonin 13.29 Urine Eosinophils % 0.0 Microbiology Microbiology Results: Microbiology 07/19/23 08:47 Blood Culture - Preliminary Blood - Venous No growth after 48 hours. 07/19/23 08:52 Blood Culture - Preliminary Blood - Venous Gram positive cocci Assessment and Plan (1) Acute renal failure: Status: Acute Plan d4 37yo F with asthma, chronic lung disease (?ILD) for which she is on longstanding prednisone presenting with flank pain, dysuria, hematuria, tactile fevers + sweats found to have tachycardia, leukocytosis, bandmiea, mild thrombocytopenia, OUSMANE [baseline Cr 0.72 09/15/21 at [facility]] admitted for OUSMANE, UTI OUSMANE - Nephrology consulted, serologic workup ordered, urine eosinophils negative, FENa 1.1% consistent with intrinsic renal etiology, continue IV NS, recheck BMP in AM UTI, E coli resistant to amp, gent, and SMX-TMP - continue ceftriaxone d4 GPC bacteremia - continue linezolid d2, follow speciation + susceptibilities RUQ pain - limited US to r/o gallbladder disease hypoK - repleted thrombocytopenia - likely due to infection, recheck CBC in AM, hold heparin ILD - requested outpt records: lung biopsy at [facility] showed mild-mod fibrosis - on chronic prednisone, per pt for years- if BP drops, would give stress-dose hydrocortisone - called [facility]. Pt was on chronic prednisone 30 mg/d in 2020 but then next fill in December 2022 was for a 12-day taper - will taper prednisone by 5 mg/d q4d mild intermittent asthma - prn albuterol tobacco abuse - declines NRT mood disorder - aripiprazole, clonazepam VTE ppx - SCDs dispo - eventual home In my clinical judgment, the patient requires continued inpatient hospitalization for the following reasons: IV ABX, IV fluids, OUSMANE Time Spent With Patient Time: Total time managing care of this patient today ___45_ minutes. Quality Stroke Does the patient have a stroke diagnosis?: No VTE Prior VTE?: No VTE Risk Level:: Medical - moderate - high VTE Device Contraindication: Treatment Not Indicated VTE Drug Contraindication: N/A - Med Ordered
[2023-07-21 15:29] VITALS: BP 102/58; PULSE 97; RESP 16; TEMP 36.4; O2SAT 93
[2023-07-21] MEDS: cefTRIAXone sodium 1 GM in 0.9 % Sodium Chloride 50 ML IV (16:26)
--- NOTE | 2023-07-21 18:26 | P.PNNP_ITS ---
Subjective Subjective Date of Service: 07/21/23 Interval history: Seen and examined, events noted overall feeling slt better Physical Exam 2 Vital Signs: Vital Signs: Last Vital Signs Temp 97.5 F 07/21/23 15:29 Pulse 97 07/21/23 15:29 Resp 16 07/21/23 15:29 BP 102/58 L 07/21/23 15:29 Pulse Ox 93 07/21/23 15:29 O2 Del Method Room Air 07/21/23 15:29 BMI result Body Mass Index 19.6 Const: General: cooperative, comfortable and no acute distress Nutritional Appearance: average body habitus Orientation/consciousness: patient oriented x3 Limitations: no limitations HEENT: Head: Yes normal to inspection General nose exam: Normal external nose present Face and sinus: Yes normal facial exam Mouth: Normal oral and palatal mucosa present Neck: Neck: Yes normal visual inspection Chest: Chest palpation & inspection: normal inspection of the chest Resp: Effort & Inspection: normal respiratory effort Auscultation: clear to auscultation bilaterally Cardio: Jugular venous distension: no JVD Rate: regular rate Rhythm: r egular rhythm GI: Inspection: Yes normal to inspection Palpation (GI): Soft to palpation, not firm, nontender and no guarding Auscultation: normal bowel sounds Skin: General skin exam: no rashes or lesions noted and elasticity normal L esions: no lesions Rashes: no rashes Neuro: General: patient oriented x3 Objective Data Labs 07/20/23 05:45 07/21/23 06:28 Labs: Laboratory Results - last 24 hr 07/20/23 07/21/23 20:15 06:28 Sodium 137 Potassium 3.6 D Chloride 111 H Carbon Dioxide 15 L Anion Gap 15 BUN 47 H Creatinine 3.56 H Estim Creat Clear Calc 13.3 Estimated GFR 14 Random Glucose 124 H Calcium 8.0 L Total Bilirubin 0.4 Direct Bilirubin 0.2 AST 13 ALT 12 Alkaline Phosphatase 152 H C-Reactive Protein 20.33 H Total Protein 5.4 L Albumin 2.4 L Procalcitonin 13.29 Urine Eosinophils % 0.0 Microbiology Microbiology Results: Microbiology 07/19/23 08:47 Blood - Venous Blood Culture - Preliminary No growth after 48 hours. 07/19/23 08:52 Blood - Venous Blood Culture - Preliminary Gram positive cocci 07/18/23 Unknown Urine clean catch - Urine hernández top Urine Culture - Final Escherichia coli Procedures Date of Service Date of Service: 07/21/23 Assessment & Plan Assessment and plan (1) Acute renal failure: Status: Acute Plan Severe renakl dysfunc: slt decr Scr suspect signif component is OUSMANE but hsitory and labs do raise ques of component of CKD ( U/S showing incr echogenicty) and h/o heavy NSAID use Wide DDx for cause of OUSMANE as noted previously AGN: IM-CX mediated ( for eg PIGN); pauci-immune ( ANCA) vs other GNs AIN Mutifact ATN TMA ( decr Plts) Obs r/o by u/s GNB UTI and GPC bactermia: w/u in progress Anmeia and now decr PLTs HypoK: suggests signif tubular dysfunc that can be seen in AIN PLAN: sero as ordered; may need to proceed with kidney Bx early next week; ABx as noted will follow jacki sadler team Time Spent With Patient Time: Total time managing care of this patient today ____ minutes. Progress Note: Quality Stroke Does the patient have a stroke diagnosis?: No
[2023-07-21 20:00] VITALS: BP 113/60; PULSE 84; RESP 20; TEMP 36.2; O2SAT 98
[2023-07-22] MEDS: Melatonin 3 MG TABLET 6 MG PO (00:48)
[2023-07-22 01:03] VITALS: BP 105/57; PULSE 93; RESP 18; TEMP 36.3; O2SAT 93
[2023-07-22] MEDS: 0.9 % Sodium Chloride 1,000 ML 150 ML IVCONT (02:52)
[2023-07-22] MEDS: Omeprazole 20 MG CAPSULE.DR PO ×2 (05:39→16:28)
[2023-07-22 06:58] LABS: Hematocrit 27.2 % (37.0-47.0); Hemoglobin 8.9 g/dl (12.0-16.0); Mean Corpuscular HGB Conc 32.7 g/dl (31.0-35.0); Mean Corpuscular Hemoglobin 28.6 pg (27.0-33.0); Mean Corpuscular Volume 87.5 fL (80.0-98.0); Mean Platelet Volume 11.8 fL (9.4-12.3); Red Blood Count 3.11 X10*6/uL (4.20-5.50); Red Cell Distribution Width 14.6 % (11.0-16.0); White Blood Count 8.1 X10*3/uL (4.8-10.8)
[2023-07-22 07:00] LABS: Platelet Count 86 X10*3/uL (160-400)
[2023-07-22 07:10] LABS: Anion Gap 14 (12-20); Blood Urea Nitrogen 44 mg/dL (9-16); Calcium 8.1 mg/dL (8.4-10.2); Carbon Dioxide 17 mmol/L (22-29); Chloride 112 mmol/L (96-108); Creatinine Clr Calc Pharmacy 16.4; Estimated Glomerular Filt Rate 19; Glucose Random 86 mg/dL (60-115); Potassium 3.2 mmol/L (3.3-5.1); Sodium 140 mmol/L (135-145)
[2023-07-22 07:39] VITALS: BP 113/69; PULSE 97; RESP 18; TEMP 36.4; O2SAT 92
[2023-07-22] MEDS: ARIPiprazole 5 MG TABLET PO (08:32)
[2023-07-22] MEDS: clonazePAM 1 MG TABLET PO ×2 (08:32→21:13)
[2023-07-22] MEDS: Sodium Bicarbonate 650 MG TABLET 1300 MG PO ×3 (08:32→21:13)
[2023-07-22] MEDS: Potassium Chloride ER 20 MEQ TAB.ER.PRT PO (08:32)
[2023-07-22] MEDS: predniSONE 20 MG TABLET PO (08:32)
[2023-07-22] MEDS: 0.9 % Sodium Chloride Flush 3 ML SYRINGE IVFLUSH ×3 (08:33→21:13)
--- NOTE | 2023-07-22 08:34 | HE.PHANOTE ---
Recommendation for Linezolid : Observational studies suggest an increased incidence of thrombocytopenia in patients with kidney impairment . Use with caution; utilize therapeutic drug monitoring when available and limit duration of use when possible. Renally adjusted dose recommendations are based on doses of 600 mg every 12 hours. Altered kidney function:Oral, IV: CrCl 40 to <130 mL/minute: No dosage adjustment necessary. CrCl <40 mL/minute: No dosage adjustment necessary. Based on Micah Wilbert simulations, in clinically stable patients with CrCl <30 mL/minute and an anticipated treatment course >10 days, some experts suggest reducing dose to 300 mg twice daily after 72 hours with therapeutic drug monitoring to reduce the risk of thrombocytopenia - Brittani Okeefe RPh
[2023-07-22] MEDS: Furosemide 20 MG/2 ML VIAL IVPUSH (10:06)
[2023-07-22 10:23] LABS: Adenovirus F 40/41 Not Detected (Not Detect.); Astrovirus Not Detected (Not Detect.); Campylobacter Not Detected (Not Detect.); Cryptosporidium Not Detected (Not Detect.); Cyclospora cayetanensis Not Detected (Not Detect.); E. coli EAEC Not Detected (Not Detect.); E. coli EPEC Not Detected (Not Detect.); E. coli ETEC Not Detected (Not Detect.); E. coli STEC Not Detected (Not Detect.); Entamoeba histolytica Not Detected (Not Detect.); Giardia lamblia Not Detected (Not Detect.); Norovirus GI/GII Not Detected (Not Detect.); Plesiomonas shigelloides Not Detected (Not Detect.); Rotavirus A Not Detected (Not Detect.); Salmonella Not Detected (Not Detect.); Sapovirus Not Detected (Not Detect.); Shigella sp./EIEC Not Detected (Not Detect.); Vibrio Not Detected (Not Detect.); Vibrio Cholerae Not Detected (Not Detect.); Yersinia enterocolitica Not Detected (Not Detect.)
--- NOTE | 2023-07-22 10:26 | P.PNIM_ITS ---
Subjective Subjective Date of Service: 07/22/23 Interval History: This history was taken in Portuguese from the patient. Abd/flank pain improved C/o generalized edema No N/V Review of Systems Review of Systems: Yes all other systems are reviewed and are negative Physical Exam 2 Vital Signs: Vital Signs: Last Vital Signs Temp 97.6 F 07/22/23 07:39 Pulse 97 07/22/23 07:39 Resp 18 07/22/23 07:39 BP 113/69 07/22/23 07:39 Pulse Ox 92 07/22/23 07:39 O2 Del Method Room Air 07/22/23 07:39 BMI result Body Mass Index 19.6 Gen: in no acute distress HEENT: sclera anicteric, moist mucus membranes Neck: supple Lungs: clear to auscultation bilaterally Heart: regular rate and rhythm, no murmurs Abd: soft, non-tender, non-distended Ext: 1+ nonpitting edema of legs and arms Skin: warm/well-perfused Neuro: alert and oriented x3, no focal findings Psych: appropriate affect Objective Data Active Medications Acetaminophen (Acetaminophen 325 Mg Tablet) 650 mg PO Q6H PRN PRN Reason: Pain, Mild (Pain Scale 1-3) Last Admin: 07/20/23 19:13 Dose: 650 mg Documented By: MELVIN Aripiprazole (Aripiprazole 5 Mg Tablet) 5 mg PO DAILY [facility] Last Admin: 07/22/23 08:32 Dose: 5 mg Documented By: MIKE Clonazepam (Clonazepam 1 Mg Tablet) 1 mg PO BID [facility] Last Admin: 07/22/23 08:32 Dose: 1 mg Documented By: MIKE Docusate Sodium (Docusate Sodium 100 Mg Capsule) 100 mg PO DAILY PRN PRN Reason: Constipation Ceftriaxone Sodium 1 gm/ (Sodium Chloride) 50 mls @ 100 mls/hr IV Q24H [facility] Last Infusion: 07/21/23 16:58 Dose: Infused Documented By: MIKE Linezolid (Zyvox/D5w) 600 mg in 300 mls @ 300 mls/hr IV Q12H [facility] Last Infusion: 07/22/23 00:00 Dose: Infused Documented By: MELVIN Melatonin (Melatonin 3 Mg Tablet) 6 mg PO BEDTIME PRN PRN Reason: Insomnia Last Admin: 07/22/23 00:48 Dose: 6 mg Documented By: MELVIN Omeprazole (Omeprazole 20 Mg Capsule.Dr) 20 mg PO BID@0630,1630 [facility] Last Admin: 07/22/23 05:39 Dose: 20 mg Documented By: MELVIN Ondansetron HCl (Ondansetron Hcl 4 Mg/2 Ml Vial) 4 mg IVPUSH Q8H PRN PRN Reason: Nausea and Vomiting Last Admin: 07/19/23 10:16 Dose: 4 mg Documented By: ARGENTINA Prednisone (Prednisone 20 Mg Tablet) 20 mg PO DAILY [facility]; Taper Stop: 08/07/23 08:59 Last Admin: 07/22/23 08:32 Dose: 20 mg Documented By: MIKE Sodium Bicarbonate (Sodium Bicarbonate 650 Mg Tablet) 1,300 mg PO TID [facility] Last Admin: 07/22/23 08:32 Dose: 1,300 mg Documented By: MIKE Sodium Chloride (0.9 % Sodium Chloride Flush 3 Ml Syringe) [facility] Last Admin: 07/22/23 08:33 Dose: 3 ml Documented By: MIKE Tramadol HCl (Tramadol Hcl 50 Mg Tablet) 25 mg PO Q4H PRN PRN Reason: Pain, Moderate(Pain Scale 4-6) Last Admin: 07/21/23 07:54 Dose: 25 mg Documented By: MIKE Trazodone HCl (Trazodone Hcl 50 Mg Tablet) 50 mg PO BEDTIME [facility] Labs 07/22/23 06:18 07/22/23 06:18 Labs: Laboratory Results - last 24 hr 07/22/23 06:18 MCV 87.5 MCH 28.6 MCHC 32.7 RDW 14.6 Plt Count 86 L MPV 11.8 Absolute Nucleated RBC 0.000 Nucleated RBC % (auto) 0.0 Anion Gap 14 Estim Creat Clear Calc 16.4 Estimated GFR 19 Random Glucose 86 Calcium 8.1 L Microbiology Microbiology Results: Microbiology 07/19/23 08:47 Blood Culture - Preliminary Blood - Venous No growth after 48 hours. 07/19/23 08:52 Blood Culture - Preliminary Blood - Venous Gram positive cocci Assessment and Plan (1) Acute renal failure: Status: Acute Plan d5 37yo F with asthma, chronic lung disease (?ILD) for which she is on longstanding prednisone presenting with flank pain, dysuria, hematuria, tactile fevers + sweats found to have tachycardia, leukocytosis, bandmiea, mild thrombocytopenia, OUSMANE [baseline Cr 0.72 09/15/21 at [facility]] admitted for OUSMANE, UTI OUSMANE - Nephrology consulted, serologic workup ordered, urine eosinophils negative, FENa 1.1% consistent with intrinsic renal etiology, BMP improving, d/c IV fluids and give 1 dose IV furosemide UTI, E coli resistant to amp, gent, and SMX-TMP - continue ceftriaxone d5 GPC bacteremia - continue linezolid d3, follow speciation + susceptibilities cholelithiasis - low-fat diet hypoK - replete, recheck BMP in AM thrombocytopenia - likely due to infection, recheck CBC in AM, hold heparin ILD - requested outpt records: lung biopsy at [facility] showed mild-mod fibrosis - on chronic prednisone, per pt for years- if BP drops, would give stress-dose hydrocortisone - called [facility]. Pt was on chronic prednisone 30 mg/d in 2020 but then next fill in December 2022 was for a 12-day taper - will taper prednisone by 5 mg/d q4d mild intermittent asthma - prn albuterol tobacco abuse - declines NRT mood disorder - aripiprazole, clonazepam VTE ppx - SCDs dispo - eventual home In my clinical judgment, the patient requires continued inpatient hospitalization for the following reasons: IV ABX, OUSMANE Time Spent With Patient Time: Total time managing care of this patient today ____40 minutes. Quality Stroke Does the patient have a stroke diagnosis?: No VTE Prior VTE?: No VTE Risk Level:: Medical - moderate - high VTE Device Contraindication: Treatment Not Indicated VTE Drug Contraindication: N/A - Med Ordered
[2023-07-22] MEDS: Linezolid/D5W 600 MG/300 ML PIGGYBACK 300 MG IV (10:47)
--- NOTE | 2023-07-22 14:32 | P.PNNP_ITS ---
Subjective Subjective Date of Service: 07/22/23 Interval history: Seen and examined, events noted Physical Exam 2 Vital Signs: Vital Signs: Last Vital Signs Temp 97.6 F 07/22/23 07:39 Pulse 97 07/22/23 07:39 Resp 18 07/22/23 07:39 BP 113/69 07/22/23 07:39 Pulse Ox 92 07/22/23 07:39 O2 Del Method Room Air 07/22/23 07:39 BMI result Body Mass Index 19.6 Const: General: cooperative, comfortable and no acute distress Nutritional Appearance: average body habitus Orientation/consciousness: patient oriented x3 Limitations: no limitations HEENT: Head: Yes normal to inspection General nose exam: Normal external nose present Face and sinus: Yes normal facial exam Mouth: Normal oral and palatal mucosa present Neck: Neck: Yes normal visual inspection Chest: Chest palpation & inspection: normal inspection of the chest Resp: Effort & Inspection: normal respiratory effort Auscultation: clear to auscultation bilaterally Cardio: Jugular venous distension: no JVD Rate: regular rate Rhythm: r egular rhythm GI: Inspection: Yes normal to inspection Palpation (GI): Soft to palpation, not firm, nontender and no guarding Auscultation: normal bowel sounds Skin: General skin exam: no rashes or lesions noted and elasticity normal L esions: no lesions Rashes: no rashes Neuro: General: patient oriented x3 Extrem: General: Yes pedal edema Objective Data Labs 07/22/23 06:18 07/22/23 06:18 Labs: Laboratory Results - last 24 hr 07/21/23 07/22/23 18:00 06:18 WBC 8.1 RBC 3.11 L Hgb 8.9 L Hct 27.2 L MCV 87.5 MCH 28.6 MCHC 32.7 RDW 14.6 Plt Count 86 L MPV 11.8 Absolute Nucleated RBC 0.000 Nucleated RBC % (auto) 0.0 Sodium 140 Potassium 3.2 L Chloride 112 H Carbon Dioxide 17 L Anion Gap 14 BUN 44 H Creatinine 2.88 H Estim Creat Clear Calc 16.4 Estimated GFR 19 Random Glucose 86 Calcium 8.1 L Stl C. cayetanensis PCR Not Detected Stool Rotavirus A PCR Not Detected Stl Adenov F 40/41 PCR Not Detected Stool Astrovirus (PCR) Not Detected Stool Campylobacter PCR Not Detected Stool Cryptosporidium PCR Not Detected Stl Sh Tox Pr E STEC PCR Not Detected Stool E coli O157 PCR Not applicable Stl Enterotoxigenic E PCR Not Detected Stool EPEC (PCR) Not Detected Stool EAEC (PCR) Not Detected Stl E. histolytica PCR Not Detected Stool Giardia Lamblia PCR Not Detected Stl P. shigelloides PCR Not Detected Stool Salmonella PCR Not Detected Stool Sapovirus (PCR) Not Detected Stl Shigella/EIEC PCR Not Detected St Y.enterocolitica PCR Not Detected Stool Vibrio (PCR) Not Detected Stl Vibrio cholerae PCR Not Detected Stl Norovirus GI/GII PCR Not Detected Microbiology Microbiology Results: Microbiology 07/19/23 08:52 Blood - Venous Blood Culture - Final Coag negative Staphylococcus 07/19/23 08:47 Blood - Venous Blood Culture - Preliminary No growth after 48 hours. 07/18/23 Unknown Urine clean catch - Urine hernández top Urine Culture - Final Escherichia coli Procedures Date of Service Date of Service: 07/22/23 Assessment & Plan Assessment and plan (1) Acute renal failure: Status: Acute Plan Severe renakl dysfunc: cont decr Scr c/w resolving ATN ? suspect signif component is OUSMANE but hsitory and labs do raise ques of component of CKD ( U/S showing incr echogenicty) and h/o heavy NSAID use Wide DDx for cause of OUSMANE as noted previously AGN: IM-CX mediated ( for eg PIGN); pauci-immune ( ANCA) vs other GNs---serow/u in progress AIN Mutifact ATN TMA ( decr Plts) Obs r/o by u/s GNB UTI and GPC bactermia: w/u in progress Anmeia and now decr PLTs HypoK: suggests signif tubular dysfunc that can be seen in AIN Hypervol: sign fluid retention PLAN: agree with lasix and track UOP/renal func; sero as ordered; may need to proceed with kidney Bx early next week but will hold off if Scr cont to decr; ABx as noted will follow jacki sadler team Time Spent With Patient Time: Total time managing care of this patient today ____ minutes. Progress Note: Quality Stroke Does the patient have a stroke diagnosis?: No
[2023-07-22 15:50] VITALS: BP 140/69; PULSE 84; RESP 18; TEMP 36.2; O2SAT 96
[2023-07-22 20:13] VITALS: BP 125/60; PULSE 57; RESP 18; TEMP 36.3; O2SAT 96
[2023-07-22 23:35] VITALS: BP 130/68; PULSE 74; RESP 17; TEMP 36.3; O2SAT 95
[2023-07-23] MEDS: Omeprazole 20 MG CAPSULE.DR PO ×2 (05:22→17:36)
[2023-07-23 07:00] LABS: Hematocrit 24.2 % (37.0-47.0); Hemoglobin 8.1 g/dl (12.0-16.0); Mean Corpuscular HGB Conc 33.5 g/dl (31.0-35.0); Mean Corpuscular Volume 86.7 fL (80.0-98.0); Mean Platelet Volume 11.6 fL (9.4-12.3); Platelet Count 105 X10*3/uL (160-400); Red Blood Count 2.79 X10*6/uL (4.20-5.50); Red Cell Distribution Width 14.4 % (11.0-16.0); White Blood Count 6.1 X10*3/uL (4.8-10.8)
[2023-07-23 07:14] VITALS: BP 134/78; PULSE 62; RESP 18; TEMP 36.6; O2SAT 95
[2023-07-23 07:25] LABS: Anion Gap 13 (12-20); Blood Urea Nitrogen 39 mg/dL (9-16); C Reactive Protein 6.45 mg/dL (< or = 0.50); Calcium 8.2 mg/dL (8.4-10.2); Carbon Dioxide 20 mmol/L (22-29); Chloride 111 mmol/L (96-108); Creatinine Clr Calc Pharmacy 18.4; Estimated Glomerular Filt Rate 21; Glucose Random 76 mg/dL (60-115); Potassium 2.8 mmol/L (3.3-5.1); Sodium 141 mmol/L (135-145)
[2023-07-23 07:40] LABS: Procalcitonin 2.03 ng/mL
[2023-07-23 08:13] LABS: HIV AB/AG Nonreactive (Nonreactive); HIV Num 1 0.06 S/CO (0.00-0.99)
[2023-07-23 08:20] LABS: Immature Retic Fraction 4.2 % (3.0-15.9); Reticulocyte Percent 0.3 % (0.5-1.8)
[2023-07-23 08:23] LABS: Reticulocytes Absolute 0.008 X10*6/uL (0.026-0.095)
[2023-07-23 08:29] LABS: Iron 129 mcg/dL (30-160); Magnesium 1.8 mg/dL (1.6-2.6); Percent Iron Saturation 69 % (15-50); Total Iron Binding Capacity 186 mcg/dL (228-428); Unsaturated Iron Binding 57 ug/dL
[2023-07-23 08:49] LABS: Ferritin 111 ng/mL (10-122)
--- NOTE | 2023-07-23 10:13 | MHC.CLN ---
NUTRITION DIET CHANGED TO 2 GRAM SODIUM DUE TO OUSMANE. ENSURE MAX BID TO INCREASE NUTRITIONAL INTAKE. PROVIDES 300 KCALS, 60 G PROTEIN.
[2023-07-23 10:29] LABS: Appearance Urine Clear; Color Urine Yellow; Glucose Urine UA Negative (Negative); Leukocyte Esterase Urine Moderate (2+) (Negative); Nitrite Urine Negative (Negative); PH 6.5 (5.0-9.0); UMIC TRIGGER UA YES; Urine Blood Small (1+) (Negative); Urine Ketones Negative (Negative); Urine Protein Trace mg/dL (Neg-Trace)
[2023-07-23 10:31] LABS: Bacteria Urine None Seen (None Seen); WBC Urine 21-50 /HPF (0-5)
[2023-07-23] MEDS: Potassium Chloride ER 20 MEQ TAB.ER.PRT 40 MEQ PO ×2 (10:34→20:55)
[2023-07-23] MEDS: predniSONE 20 MG TABLET PO (10:34)
[2023-07-23 10:35] LABS: OBS Int Ctl Valid YES; OBS1 NEGATIVE (NEGATIVE)
[2023-07-23] MEDS: Sodium Bicarbonate 650 MG TABLET 1300 MG PO ×3 (10:35→20:56)
[2023-07-23] MEDS: ARIPiprazole 5 MG TABLET PO (10:35)
[2023-07-23] MEDS: clonazePAM 1 MG TABLET PO ×2 (10:35→20:56)
[2023-07-23] MEDS: Magnesium Hydrox/Alum Hydrox 30 ML ORAL.SUSP PO (10:43)
[2023-07-23 11:07] LABS: Creatinine Urine 60.03 mg/dL; Total Protein Urine Random 22 mg/dL (<12)
--- NOTE | 2023-07-23 11:46 | HO.PM.IMPN ---
Subjective Subjective Date of Service: 07/23/23 Interval History: This history was taken in [place] from the patient. swelling improved c/o heartburn no N/V Review of Systems Review of Systems: Yes all other systems are reviewed and are negative Physical Exam Vital Signs: Vital Signs: Last Vital Signs Temp 97.8 F 07/23/23 07:14 Pulse 62 07/23/23 07:14 Resp 18 07/23/23 07:14 BP 134/78 07/23/23 07:14 Pulse Ox 95 07/23/23 07:14 O2 Del Method Room Air 07/23/23 07:14 BMI result Body Mass Index 19.6 Gen: in no acute distress HEENT: sclera anicteric, moist mucus membranes Neck: supple Lungs: clear to auscultation bilaterally Heart: regular rate and rhythm, no murmurs Abd: soft, non-tender, non-distended Ext: trace edema of legs and arms Skin: warm/well-perfused Neuro: alert and oriented x3, no focal findings Psych: appropriate affect Objective Data Active Medications Acetaminophen (Acetaminophen 325 Mg Tablet) 650 mg PO Q6H PRN PRN Reason: Pain, Mild (Pain Scale 1-3) Last Admin: 07/20/23 19:13 Dose: 650 mg Documented By: MELVIN Al Hydroxide/Mg Hydroxide (Magnesium Hydrox/Alum Hydrox 30 Ml Oral.Susp) 30 ml PO Q4H PRN PRN Reason: Heart Burn Last Admin: 07/23/23 10:43 Dose: 30 ml Documented By: COTEMA Aripiprazole (Aripiprazole 5 Mg Tablet) 5 mg PO DAILY [facility] Last Admin: 07/23/23 10:35 Dose: 5 mg Documented By: COTEMA Cefuroxime Axetil (Cefuroxime Axetil 500 Mg Tablet) 500 mg PO Q12H [facility] Last Admin: 07/23/23 05:22 Dose: 500 mg Documented By: OZORALB Clonazepam (Clonazepam 1 Mg Tablet) 1 mg PO BID [facility] Last Admin: 07/23/23 10:35 Dose: 1 mg Documented By: COTEMA Docusate Sodium (Docusate Sodium 100 Mg Capsule) 100 mg PO DAILY PRN PRN Reason: Constipation Melatonin (Melatonin 3 Mg Tablet) 6 mg PO BEDTIME PRN PRN Reason: Insomnia Last Admin: 07/22/23 00:48 Dose: 6 mg Documented By: MELVIN Omeprazole (Omeprazole 20 Mg Capsule.Dr) 20 mg PO BID@0630,1630 [facility] Last Admin: 07/23/23 05:22 Dose: 20 mg Documented By: ARACELI Ondansetron HCl (Ondansetron Hcl 4 Mg/2 Ml Vial) 4 mg IVPUSH Q8H PRN PRN Reason: Nausea and Vomiting Last Admin: 07/19/23 10:16 Dose: 4 mg Documented By: ARGENTINA Potassium Chloride (Potassium Chloride Er 20 Meq Tab.Er.Prt) 40 meq PO BID [facility] Stop: 07/23/23 21:01 Last Admin: 07/23/23 10:34 Dose: 40 meq Documented By: COTEMA Prednisone (Prednisone 20 Mg Tablet) 20 mg PO DAILY [facility]; Taper Stop: 08/07/23 08:59 Last Admin: 07/23/23 10:34 Dose: 20 mg Documented By: COTEMA Sodium Bicarbonate (Sodium Bicarbonate 650 Mg Tablet) 1,300 mg PO TID [facility] Last Admin: 07/23/23 10:35 Dose: 1,300 mg Documented By: COTEMA Sodium Chloride (0.9 % Sodium Chloride Flush 3 Ml Syringe) 3 ml IVFLUSH QSHIFT [facility] Last Admin: 07/23/23 10:38 Dose: 3 ml Documented By: COTEMA Tramadol HCl (Tramadol Hcl 50 Mg Tablet) 25 mg PO Q4H PRN PRN Reason: Pain, Moderate(Pain Scale 4-6) Last Admin: 07/21/23 07:54 Dose: 25 mg Documented By: MIKE Trazodone HCl (Trazodone Hcl 50 Mg Tablet) 50 mg PO BEDTIME [facility] Last Admin: 07/22/23 21:16 Dose: Not Given Documented By: ARACELI Non-Admin Reason: Patient Refused Labs 07/23/23 05:37 07/23/23 05:37 Labs: Laboratory Results - last 24 hr 07/21/23 07/23/23 07/23/23 06:28 05:37 10:17 MCV 86.7 MCH 29.0 MCHC 33.5 RDW 14.4 Plt Count 105 L MPV 11.6 Absolute Nucleated RBC 0.000 Nucleated RBC % (auto) 0.0 Absolute Retic 0.008 L Percent Retic 0.3 L Immature Retic Fraction 4.2 Retic Hgb Equivalent 34.0 Anion Gap 13 Estim Creat Clear Calc 18.4 Estimated GFR 21 Random Glucose 76 Calcium 8.2 L Magnesium 1.8 Iron 129 TIBC 186 L % Saturation 69 H Unsat Iron Binding 57 Ferritin 111 C-Reactive Protein 6.45 H Procalcitonin 2.03 Urine Color Urine Appearance Urine pH Ur Specific [place] Urine Protein Urine Glucose (UA) Urine Ketones Urine Blood Urine Nitrite Ur Leukocyte Esterase Urine RBC Urine WBC Ur Squamous Epith Cells Urine Bacteria Hyaline Casts U Random Total Protein Urine Creatinine Stool Occult Blood NEGATIVE HIV 1&2 Ab/P24 Ag 4thGn Nonreactive 07/23/23 10:19 MCV MCH MCHC RDW Plt Count MPV Absolute Nucleated RBC Nucleated RBC % (auto) Absolute Retic Percent Retic Immature Retic Fraction Retic Hgb Equivalent Anion Gap Estim Creat Clear Calc Estimated GFR Random Glucose Calcium Magnesium Iron TIBC % Saturation Unsat Iron Binding Ferritin C-Reactive Protein Procalcitonin Urine Color Yellow Urine Appearance Clear Urine pH 6.5 Ur Specific [place] 1.010 Urine Protein Trace Urine Glucose (UA) Negative Urine Ketones Negative Urine Blood Small (1+) H Urine Nitrite Negative Ur Leukocyte Esterase Moderate (2+) H Urine RBC 11-20 H Urine WBC 21-50 H Ur Squamous Epith Cells 6-10 Urine Bacteria None Seen Hyaline Casts 3-5 U Random Total Protein 22 H Urine Creatinine 60.03 Stool Occult Blood HIV 1&2 Ab/P24 Ag 4thGn Microbiology Microbiology Results: Microbiology 07/19/23 08:52 Blood Culture - Final Blood - Venous Coag negative Staphylococcus Assessment and Plan (1) Acute renal failure: Status: Acute Plan d6 37yo F with asthma, ILD for which she may or may not be on longstanding prednisone presenting with flank pain, dysuria, hematuria, tactile fevers + sweats found to have tachycardia, leukocytosis, bandmiea, mild thrombocytopenia, OUSMANE [baseline Cr 0.72 09/15/21 at [facility]] admitted for OUSMANE, UTI OUSMANE - Nephrology consulted, serologic workup ordered, urine eosinophils negative, FENa 1.1% consistent with intrinsic renal etiology - BMP improved with IV fluids so in the end most likely septic ATN - no renal biopsy needed but should have outpt Nephrology follow-up - recheck BMP in AM UTI, E coli resistant to amp, gent, and SMX-TMP - got 5 days of ceftriaxone; switched to cefuroxime 07/22/23 due to loss of IV access. total 10 days therapy planned, end date 07/27/23. hypoK - replete, recheck BMP in AM GPC bacteremia, not - contaminant [coag-neg Staph]; d/c linezolid cholelithiasis - low-fat diet thrombocytopenia - improving, was likely due to sepsis ILD - reviewd outpt records: lung biopsy at [facility] showed mild-mod fibrosis - on chronic prednisone, per pt for years- if BP drops, would give stress-dose hydrocortisone - called [facility]. Pt was on chronic prednisone 30 mg/d in 2020 but then next fill in December 2022 was for a 12-day taper. Will taper prednisone by 5 mg/d q4d with goal of being off 08/07/23 mild intermittent asthma - prn albuterol tobacco abuse - declines NRT mood disorder - aripiprazole, clonazepam VTE ppx - SCDs dispo - home in the next 1-2d as long as renal recovery continues; no services needed In my clinical judgment, the patient requires continued inpatient hospitalization for the following reasons: OUSMANE Time Spent With Patient Time: Total time managing care of this patient today __35__ minutes. Quality Stroke Does the patient have a stroke diagnosis?: No VTE Prior VTE?: No VTE Risk Level:: Medical - moderate - high VTE Device Contraindication: Treatment Not Indicated VTE Drug Contraindication: N/A - Med Ordered
[2023-07-23 13:22] LABS: Myeloperoxidase Antibody <1.0 AI; Proteinase 3 PR3 Antibodies <1.0 AI
[2023-07-23 13:22] LABS: Anti Glomerular Basement Memb <1.0 AI; Myeloperoxidase Antibody <1.0 AI; Proteinase 3 PR3 Antibodies <1.0 AI
[2023-07-23 13:29] LABS: Calcium (PTHI) 7.4 mg/dL (8.6-10.2); PTHI 136 pg/mL (16-77)
--- NOTE | 2023-07-23 13:48 | MHC.CM.PN ---
per rounds Pt is not medically cleared for DC. CM to follow and assist with DC Plan.
[2023-07-23 14:08] LABS: Kappa Light Chain, Free Serum 117.1 mg/L (3.3-19.4); Kappa/Lambda Lt Ch Free Ratio 1.45 (0.26-1.65); Lambda Light Chain, Free Serum 80.8 mg/L (5.7-26.3)
[2023-07-23] MEDS: Acetaminophen 325 MG TABLET 650 MG PO (14:35)
[2023-07-23 15:20] VITALS: BP 136/70; PULSE 56; RESP 18; TEMP 36.4; O2SAT 95
[2023-07-23 15:23] LABS: Anti Nuclear Antibody Screen NEGATIVE (NEGATIVE)
[2023-07-23 19:05] VITALS: BP 140/67; PULSE 56; RESP 18; TEMP 36.8; O2SAT 96
--- NOTE | 2023-07-23 21:06 | PM.PNNEP ---
Subjective Subjective Date of Service: 07/23/23 Interval history: Seen and examined,e vents ntoed Physical Exam Vital Signs: Vital Signs: Last Vital Signs Temp 98.2 F 07/23/23 19:05 Pulse 56 07/23/23 19:05 Resp 18 07/23/23 19:05 BP 140/67 H 07/23/23 19:05 Pulse Ox 96 07/23/23 19:05 O2 Del Method Room Air 07/23/23 19:05 BMI result Body Mass Index 19.6 Const: General: cooperative, comfortable and no acute distress Nutritional Appearance: average body habitus Orientation/consciousness: patient oriented x3 Limitations: no limitations HEENT: Head: Yes normal to inspection General nose exam: Normal external nose present Face and sinus: Yes normal facial exam Mouth: Normal oral and palatal mucosa present Neck: Neck: Yes normal visual inspection Chest: Chest palpation & inspection: normal inspection of the chest Resp: Effort & Inspection: normal respiratory effort Auscultation: clear to auscultation bilaterally Cardio: Jugular venous distension: no JVD Rate: regular rate Rhythm: regular rhythm GI: Inspection: Yes normal to inspection Palpation (GI): Soft to palpation, not firm, nontender and no guarding Auscultation: normal bowel sounds Skin: General skin exam: no rashes or lesions noted and elasticity normal Lesions: no lesions Rashes: no rashes Neuro: General: patient oriented x3 Extrem: General: Yes pedal edema Objective Data Labs 07/23/23 05:37 07/23/23 05:37 Labs: Laboratory Results - last 24 hr 07/19/23 07/19/23 07/20/23 08:52 20:31 05:45 WBC RBC Hgb Hct MCV MCH MCHC RDW Plt Count MPV Absolute Nucleated RBC Nucleated RBC % (auto) Absolute Retic Percent Retic Immature Retic Fraction Retic Hgb Equivalent Sodium Potassium Chloride Carbon Dioxide Anion Gap BUN Creatinine Estim Creat Clear Calc Estimated GFR Random Glucose Calcium Magnesium Iron TIBC % Saturation Unsat Iron Binding Ferritin C-Reactive Protein Procalcitonin PTH Intact 136 H Calcium (PTH Intact) 7.4 L Urine Color Urine Appearance Urine pH Ur Specific [place] Urine Protein Urine Glucose (UA) Urine Ketones Urine Blood Urine Nitrite Ur Leukocyte Esterase Urine RBC Urine WBC Ur Squamous Epith Cells Urine Bacteria Hyaline Casts U Random Total Protein Urine Creatinine Stool Occult Blood MARISSA Screen NEGATIVE Proteinase 3 (PR3) Ab <1.0 <1.0 Myeloperoxidase Ab <1.0 <1.0 Glomerular Base Memb Ab <1.0 Free [place] LC, Quant 117.1 H Free Lambda LC, Quant 80.8 H Free [place]/Lambda Ratio 1.45 HIV 1&2 Ab/P24 Ag 4thGn 07/21/23 07/23/23 07/23/23 06:28 05:37 10:17 WBC 6.1 RBC 2.79 L Hgb 8.1 L Hct 24.2 L MCV 86.7 MCH 29.0 MCHC 33.5 RDW 14.4 Plt Count 105 L MPV 11.6 Absolute Nucleated RBC 0.000 Nucleated RBC % (auto) 0.0 Absolute Retic 0.008 L Percent Retic 0.3 L Immature Retic Fraction 4.2 Retic Hgb Equivalent 34.0 Sodium 141 Potassium 2.8 L Chloride 111 H Carbon Dioxide 20 L Anion Gap 13 BUN 39 H Creatinine 2.58 H Estim Creat Clear Calc 18.4 Estimated GFR 21 Random Glucose 76 Calcium 8.2 L Magnesium 1.8 Iron 129 TIBC 186 L % Saturation 69 H Unsat Iron Binding 57 Ferritin 111 C-Reactive Protein 6.45 H Procalcitonin 2.03 PTH Intact Calcium (PTH Intact) Urine Color Urine Appearance Urine pH Ur Specific [place] Urine Protein Urine Glucose (UA) Urine Ketones Urine Blood Urine Nitrite Ur Leukocyte Esterase Urine RBC Urine WBC Ur Squamous Epith Cells Urine Bacteria Hyaline Casts U Random Total Protein Urine Creatinine Stool Occult Blood NEGATIVE MARISSA Screen Proteinase 3 (PR3) Ab Myeloperoxidase Ab Glomerular Base Memb Ab Free [place] LC, Quant Free Lambda LC, Quant Free [place]/Lambda Ratio HIV 1&2 Ab/P24 Ag 4thGn Nonreactive 07/23/23 10:19 WBC RBC Hgb Hct MCV MCH MCHC RDW Plt Count MPV Absolute Nucleated RBC Nucleated RBC % (auto) Absolute Retic Percent Retic Immature Retic Fraction Retic Hgb Equivalent Sodium Potassium Chloride Carbon Dioxide Anion Gap BUN Creatinine Estim Creat Clear Calc Estimated GFR Random Glucose Calcium Magnesium Iron TIBC % Saturation Unsat Iron Binding Ferritin C-Reactive Protein Procalcitonin PTH Intact Calcium (PTH Intact) Urine Color Yellow Urine Appearance Clear Urine pH 6.5 Ur Specific [place] 1.010 Urine Protein Trace Urine Glucose (UA) Negative Urine Ketones Negative Urine Blood Small (1+) H Urine Nitrite Negative Ur Leukocyte Esterase Moderate (2+) H Urine RBC 11-20 H Urine WBC 21-50 H Ur Squamous Epith Cells 6-10 Urine Bacteria None Seen Hyaline Casts 3-5 U Random Total Protein 22 H Urine Creatinine 60.03 Stool Occult Blood MARISSA Screen Proteinase 3 (PR3) Ab Myeloperoxidase Ab Glomerular Base Memb Ab Free [place] LC, Quant Free Lambda LC, Quant Free [place]/Lambda Ratio HIV 1&2 Ab/P24 Ag 4thGn Microbiology Microbiology Results: Microbiology 07/19/23 08:52 Blood - Venous Blood Culture - Final Coag negative Staphylococcus 07/19/23 08:47 Blood - Venous Blood Culture - Preliminary No growth after 48 hours. 07/18/23 Unknown Urine clean catch - Urine hernández top Urine Culture - Final Escherichia coli Procedures Date of Service Date of Service: 07/23/23 Assessment & Plan Assessment and plan (1) Acute renal failure: Status: Acute Plan Severe renakl dysfunc: cont decr Scr, albeit grdual, c/w resolving ATN ? d/t UTI/Sepsis suspect signif component is OUSMANE but hsitory and labs do raise ques of component of CKD ( U/S showing incr echogenicty) and h/o heavy NSAID use Wide DDx for cause of OUSMANE as noted previously AGN: IM-CX mediated ( for eg PIGN); pauci-immune ( ANCA) vs other GNs---serow/u in progress AIN Mutifact ATN TMA: w/u thus far does not support w incr PLT Obs r/o by u/s GNB UTI and GPC bactermia:the latter seems to be a contaminat Staph coag -ve Anmeia and now incr PLTs HypoK: suggests signif tubular dysfunc that can be seen in AIN and ongoing diuresis Hypervol: sign fluid retention; good response ot diuretics PLAN: agree with cont lasix and track UOP/renal func; sero as ordered; may need to proceed with kidney Bx early next week but will hold off given Scr cont to decr; ABx as noted will follow jacki sadler team Time Spent With Patient Time: Total time managing care of this patient today ____ minutes. Progress Note: Quality Stroke Does the patient have a stroke diagnosis?: No
[2023-07-23 22:37] LABS: Complement C3 120 mg/dL (83-193)
[2023-07-23 23:51] VITALS: BP 120/74; PULSE 80; RESP 18; TEMP 36; O2SAT 96
[2023-07-24] MEDS: Omeprazole 20 MG CAPSULE.DR PO (05:29)
[2023-07-24 05:31] LABS: Hematocrit 25.2 % (37.0-47.0); Hemoglobin 8.5 g/dl (12.0-16.0); Mean Corpuscular HGB Conc 33.7 g/dl (31.0-35.0); Mean Corpuscular Hemoglobin 28.9 pg (27.0-33.0); Mean Corpuscular Volume 85.7 fL (80.0-98.0); Mean Platelet Volume 11.5 fL (9.4-12.3); Platelet Count 137 X10*3/uL (160-400); Red Blood Count 2.94 X10*6/uL (4.20-5.50); Red Cell Distribution Width 14.1 % (11.0-16.0); White Blood Count 6.9 X10*3/uL (4.8-10.8)
[2023-07-24 05:46] LABS: Anion Gap 16 (12-20); Blood Urea Nitrogen 30 mg/dL (9-16); Calcium 8.3 mg/dL (8.4-10.2); Carbon Dioxide 18 mmol/L (22-29); Chloride 111 mmol/L (96-108); Creatinine Clr Calc Pharmacy 28.8; Estimated Glomerular Filt Rate 35; Glucose Random 79 mg/dL (60-115); Potassium 2.8 mmol/L (3.3-5.1); Sodium 142 mmol/L (135-145)
[2023-07-24 06:22] LABS: Folate 11.7 ng/mL (> or = 4.0); Vitamin B12 1388 pg/mL (200-900)
[2023-07-24 07:31] VITALS: BP 132/73; PULSE 70; RESP 17; TEMP 37.1; O2SAT 94
[2023-07-24] MEDS: Sodium Bicarbonate 650 MG TABLET 1300 MG PO (08:59)
[2023-07-24] MEDS: ARIPiprazole 5 MG TABLET PO (08:59)
[2023-07-24] MEDS: Acetaminophen 325 MG TABLET 650 MG PO (09:00)
[2023-07-24] MEDS: predniSONE 20 MG TABLET PO (09:03)
[2023-07-24] MEDS: Potassium Chloride Packet 20 MEQ PACKET 40 MEQ PO ×2 (09:18→12:17)
--- NOTE | 2023-07-24 11:31 | P.CDIM_ITS ---
PROVIDER RESPONSE TEXT: To clarify, the appropriate diagnosis supported by the clinical indicators: Other (explain): ATN due to infection not sepsis QUERY TEXT: PHYSICIAN'S DOCUMENTATION REQUEST Date of Query: 07/24/2023 09:43 AM EDT Patient Name: Leydi Lundberg Admit Date: 07/18/2023 Dear Guero Howe, A review of the medical record indicates additional documentation may be needed. Please review below and update the documentation accordingly. Documentation on progress note dated 07/23/23 included the diagnosis of sepsis. The patient's infectious clinical indicators include: Per Hospitalist Progress Note 07/23/23: found to have tachycardia, leukocytosis, bandemia, mild thrombocytopenia, OUSMANE [baseline Cr 0.72 at [facility]] admitted for OUSMANE, UTI: OUSMANE - Nephrology consulted, serologic workup ordered, urine eosinophils negative, FENa 1.1% consistent wi th intrinsic renal etiology - BMP improved with IV fluids so in the end most likely septic ATN Based on the above information and the recognized standard for sepsis, could you please clarify if th is diagnoses is still accurate and reflective of the patient's condition to ensure quality of the medical record. Sepsis is/was present and is a clinical diagnosis based on After study, Sepsis has been ruled out Other (explain)Clinically unable to determine (explain)Thank you, Romana Bland RN Use of terms such as suspected, likely, concern for, or probable (associated with a specific diagnosi s that is being evaluated, monitored, or treated as if it exists) are acceptable and can be coded in the inpatient se tting, when documented at the time of discharge. Please use your independent medical judgment in providing your response. THIS QUERY IS PART OF THE PERMANENT MEDICAL RECORD
--- NOTE | 2023-07-24 11:44 | PM.DS ---
DS: Providers Provider Date of Service: 07/24/23 Date of admission: 07/18/23 17:03 Date of discharge: 07/24/23 Primary care physician: Unknown Physician Consults: 07/18/23 17:06 Consult to Nephrology Routine Consulting Provider: Jake Landaverde Reason for consultation: ousmane 07/20/23 11:06 Consult to Infectious Diseases Stat Consulting Provider: [facility] Infectious Disease Reason for consultation: linezolid DS: Diagnosis Discharge Diagnosis (1) Acute renal failure: Status: Acute (2) Proteinuria: Status: Acute (3) Acute hypokalemia: Status: Acute (4) UTI (urinary tract infection): Status: Acute (5) Thrombocytopenia: Status: Acute DS: Summary Hospital Course Hospital Course: From the history and physical by the admitting hospitalist, SHERLY Zaldivar, 07/18/23: 37-year-old female with a history of asthma, chronic lung disease which she believes is interstitial lung disease presents to the ED earlier today for evaluation of right flank pain. She states the pain lasted from Sunday until Sunday radiating around to the right side of the abdomen. She believes she was passing a kidney stone so she was taking ibuprofen. However, yesterday, developed right-sided abdominal pain with associated dysuria, hematuria, decreased urinary output, and intermittent subjective fevers with sweats. She states she has also had a cough but this has been longstanding and she was recently started on prednisone by her creative writing teacher for this. She is endorsing nausea but no vomiting. No diarrhea, melena, hematochezia, lightheadedness, palpitations, shortness of breath, or chest pain. She denies any history of kidney disease. Denies any recent illness. On arrival, patient tachycardic to 111, vitals otherwise stable. She has leukocytosis of 11.5 with 9% bandemia, normocytic anemia with H/H 10.6/30.3%. Platelet count 116. Creatinine 3.83, baseline unknown. BUN 41. Sodium 135, potassium 3.2, chloride 100, CO2 20. Total bilirubin 1.5, AST/ALT within normal limits. Albumin 2.7. Urinalysis significant for 2+ blood, 2+ leukocytes, negative nitrites, 3+ protein, positive urinary sediment, 4+ bacteria. CT abdomen/pelvis shows 3 mm nonobstructing right renal calculus without any hydronephrosis or obstruction. There is also hepatic steatosis, cholelithiasis, and a small amount of stranding within the right and left paracolic gutter with possible mesenteric adenitis. There is noted to be diffuse bladder wall thickening. In the ED, received 1g IV ceftriaxone, 20meq potassium chloride, and 1 L IV NS. She reports he has been eating and drinking without difficulty. Ms Means is a 37yo F with asthma and ILD for which she may or may not be on longstanding prednisone [she thinks she is taking 25 mg/d chronically]. She presented with flank pain, dysuria, hematuria, and tactile fevers + sweats. She was found to have tachycardia, leukocytosis, bandemia, thrombocytopenia, and OUSMANE [baseline Cr 0.72 09/15/21 at [facility]]. She was admitted to the medical-surgical floor. Hospital course by problem: OUSMANE - Nephrology consulted, serologic workup ordered but ultimately negative. FENa 1.1%. Serum creatinine peaked at 4.22 and improved with IV fluid hydration and UTI treatment so in the end, most likely had ATN due to infection. No renal biopsy needed at this point but should have outpatient Nephrology follow-up in 1 week. Serum creatinine upon discharge was 1.44. Repeat BMP was ordered to be done 07/27/23. hypokalemia - Due to renal tubular dysfunction. Started on maintenance potassium chloride 20 mEq bid; repeat BMP as above. UTI - Culture grew E coli resistant to amp, gent, and SMX-TMP. She got 4 days of ceftriaxone + 2 day of cefuroxime and was discharged with an additional 2 days of cefuroxime; total antibiotic duration 10 days. Blood cultures negative. cholelithiasis - Noted on ultrasound. No symptoms. Advised low-fat diet thrombocytopenia - Parker of 83, recovered to 137 with treatment of the infection. ILD with possible steroid dependence - Reviewd outpt records: lung biopsy at [facility] showed mild-mod fibrosis. Called [facility]. Pt was on chronic prednisone 30 mg/d in 2020 but then next fill in December 2022 was for a 12-day taper. Prednisone decreased from 25 to 20 mg while hospitalized. Will taper off prednisone over the next 16 days: 15 mg daily x 4 days, then 10 mg daily x 4 days, then 5 mg daily x 4 days, then 2.5 mg daily x 4 days. Time Spent with Patient Time attestation: Total time managing care of this patient today _45___ minutes. Discharge coordination time: Greater than 30 minutes Quality: Safe Use of Opioids Does Pt have an Active Cancer Diagnosis on the Problem List?: No Quality: Stroke Does the patient have a stroke diagnosis?: No Physical Exam Vital Signs: Vital Signs: Last Vital Signs Temp 98.8 F 07/24/23 07:31 Pulse 70 07/24/23 07:31 Resp 17 07/24/23 07:31 BP 132/73 07/24/23 07:31 Pulse Ox 94 07/24/23 07:31 O2 Del Method Room Air 07/24/23 07:31 BMI result Body Mass Index 19.6 Gen: in no acute distress HEENT: sclera anicteric, moist mucus membranes Neck: supple Lungs: clear to auscultation bilaterally Heart: regular rate and rhythm, no murmurs Abd: soft, non-tender, non-distended Ext: no edema Skin: warm/well-perfused Neuro: alert and oriented x3, no focal findings Psych: appropriate affect DS: Data Data Completed and Pending Completed studies during hospitalization [Text1]: Laboratory Results WBC 6.9 X10*3/uL (4.8-10.8) 07/24/23 05:05 RBC 2.94 X10*6/uL (4.20-5.50) L 07/24/23 05:05 Hgb 8.5 g/dl (12.0-16.0) L 07/24/23 05:05 Hct 25.2 % (37.0-47.0) L 07/24/23 05:05 MCV 85.7 fL (80.0-98.0) 07/24/23 05:05 MCH 28.9 pg (27.0-33.0) 07/24/23 05:05 MCHC 33.7 g/dl (31.0-35.0) 07/24/23 05:05 RDW 14.1 % (11.0-16.0) 07/24/23 05:05 Plt Count 137 X10*3/uL (160-400) L D 07/24/23 05:05 MPV 11.5 fL (9.4-12.3) 07/24/23 05:05 Immature Gran % (Auto) Cancelled 07/18/23 14:41 Neut % (Auto) Cancelled 07/18/23 14:41 Lymph % (Auto) Cancelled 07/18/23 14:41 [place] % (Auto) Cancelled 07/18/23 14:41 Eos % (Auto) Cancelled 07/18/23 14:41 Baso % (Auto) Cancelled 07/18/23 14:41 Lymph # (Auto) Cancelled 07/18/23 14:41 [place] # (Auto) Cancelled 07/18/23 14:41 Eos # (Auto) Cancelled 07/18/23 14:41 Baso # (Auto) Cancelled 07/18/23 14:41 Abs Immat Gran (auto) Cancelled 07/18/23 14:41 Absolute Neuts (auto) Cancelled 07/18/23 14:41 Absolute Nucleated RBC 0.000 X10*3/uL (0.0-0.012) 07/24/23 05:05 Nucleated RBC % (auto) 0.0 /100WBC (0.0-0.2) 07/24/23 05:05 Neutrophils % (Manual) 77 % (45-73) H 07/18/23 14:41 Band Neutrophils % 9 % (3-5) H 07/18/23 14:41 Lymphocytes % (Manual) 2 % (20-40) L 07/18/23 14:41 Monocytes % (Manual) 8 % (2-11) 07/18/23 14:41 Eosinophils % (Manual) 1 % (0-4) 07/18/23 14:41 Metamyelocytes % 2 % 07/18/23 14:41 Myelocytes % 1 % 07/18/23 14:41 Abs Neuts (Manual) 9.9 X10*3/uL (2.0-8.3) H 07/18/23 14:41 Lymphocytes # (Manual) 0.2 X10*3/uL (1.2-4.9) L 07/18/23 14:41 Monocytes # (Manual) 0.9 X10*3/uL (0.1-1.2) 07/18/23 14:41 Eosinophils # (Manual) 0.1 X10*3/uL (0.0-0.4) 07/18/23 14:41 Metamyelocytes # 0.2 X10*3/uL 07/18/23 14:41 Myelocytes # 0.1 X10*/uL 07/18/23 14:41 Toxic Vacuolation PRESENT 07/18/23 14:41 Dohle Bodies PRESENT 07/18/23 14:41 Platelet Estimate SLIGHTLY DECREASED (NORMAL) 07/18/23 14:41 Plt Morphology Comment NORMAL 07/18/23 14:41 RBC Morphology NOTED 07/18/23 14:41 [place] Cells 1+ (0-2) /OIF 07/18/23 14:41 Smear Path Review SEE NOTE 07/20/23 05:45 Absolute Retic 0.008 X10*6/uL (0.026-0.095) L 07/23/23 05:37 Percent Retic 0.3 % (0.5-1.8) L 07/23/23 05:37 Immature Retic Fraction 4.2 % (3.0-15.9) 07/23/23 05:37 Retic Hgb Equivalent 34.0 pg (30.0-35.0) 07/23/23 05:37 Hold Purple Top SEE NOTE 07/19/23 07:22 PT 14.1 SEC (11.1-13.3) H 07/20/23 05:45 INR 1.2 (0.9-1.1) H 07/20/23 05:45 Sodium 142 mmol/L (135-145) 07/24/23 05:05 Potassium 2.8 mmol/L (3.3-5.1) L 07/24/23 05:05 Chloride 111 mmol/L (96-108) H 07/24/23 05:05 Carbon Dioxide 18 mmol/L (22-29) L 07/24/23 05:05 Anion Gap 16 (12-20) 07/24/23 05:05 BUN 30 mg/dL (9-16) H 07/24/23 05:05 Creatinine 1.64 mg/dL (0.5-1.4) H 07/24/23 05:05 Estim Creat Clear Calc 28.8 07/24/23 05:05 Estimated GFR 35 07/24/23 05:05 Random Glucose 79 mg/dL (60-115) 07/24/23 05:05 Calcium 8.3 mg/dL (8.4-10.2) L 07/24/23 05:05 Magnesium 2.0 mg/dL (1.6-2.6) 07/24/23 05:05 Iron 129 mcg/dL (30-160) 07/23/23 05:37 TIBC 186 mcg/dL (228-428) L 07/23/23 05:37 % Saturation 69 % (15-50) H 07/23/23 05:37 Unsat Iron Binding 57 ug/dL 07/23/23 05:37 Ferritin 111 ng/mL (10-122) 07/23/23 05:37 Total Bilirubin 0.4 mg/dL (0.0-1.0) 07/21/23 06:28 Direct Bilirubin 0.2 mg/dL (0.0-0.5) 07/21/23 06:28 AST 13 U/L (5-31) 07/21/23 06:28 ALT 12 U/L (0-31) 07/21/23 06:28 Alkaline Phosphatase 152 U/L (39-117) H 07/21/23 06:28 Lactate Dehydrogenase 169 U/L (122-220) 07/20/23 05:45 C-Reactive Protein 6.45 mg/dL (< or = 0.50) H 07/23/23 05:37 Total Protein 5.4 g/dL (6.5-8.0) L 07/21/23 06:28 Albumin 2.4 g/dL (3.5-5.0) L 07/21/23 06:28 Vitamin B12 1388 pg/mL (200-900) H 07/24/23 05:05 Folate 11.7 ng/mL (> or = 4.0) 07/24/23 05:05 Procalcitonin 2.03 ng/mL 07/23/23 05:37 Beta HCG, Quant < 2 mIU/mL 07/18/23 14:41 PTH Intact 136 pg/mL (16-77) H 07/20/23 05:45 Calcium (PTH Intact) 7.4 mg/dL (8.6-10.2) L 07/20/23 05:45 Urine Color Yellow 07/23/23 10:19 Urine Appearance Clear 07/23/23 10:19 Urine pH 6.5 (5.0-9.0) 07/23/23 10:19 Ur Specific [place] 1.010 (1.005-1.025) 07/23/23 10:19 Urine Protein Trace mg/dL (Neg-Trace) 07/23/23 10:19 Urine Glucose (UA) Negative mg/dL (Negative) 07/23/23 10:19 Urine Ketones Negative mg/dL (Negative) 07/23/23 10:19 Urine Blood Small (1+) (Negative) H 07/23/23 10:19 Urine Nitrite Negative (Negative) 07/23/23 10:19 Ur Leukocyte Esterase Moderate (2+) (Negative) H 07/23/23 10:19 Urine RBC 11-20 /HPF (0-2) H 07/23/23 10:19 Urine WBC 21-50 /HPF (0-5) H 07/23/23 10:19 Ur Squamous Epith Cells 6-10 /HPF (0-2) 07/23/23 10:19 Urine Bacteria None Seen (None Seen) 07/23/23 10:19 Hyaline Casts 3-5 /LPF (0-2) 07/23/23 10:19 Urine Eosinophils % 0.0 % 07/20/23 20:15 U Random Total Protein 22 mg/dL (<12) H 07/23/23 10:19 Ur Random Sodium 34.0 mmol/L 07/19/23 18:50 Urine Creatinine 60.03 mg/dL 07/23/23 10:19 Stool Occult Blood NEGATIVE (NEGATIVE) 07/23/23 10:17 Stl C. cayetanensis PCR Not Detected (Not Detect.) 07/21/23 18:00 Stool Rotavirus A PCR Not Detected (Not Detect.) 07/21/23 18:00 Stl Adenov F 40/41 PCR Not Detected (Not Detect.) 07/21/23 18:00 Stool Astrovirus (PCR) Not Detected (Not Detect.) 07/21/23 18:00 Stool Campylobacter PCR Not Detected (Not Detect.) 07/21/23 18:00 Stool Cryptosporidium PCR Not Detected (Not Detect.) 07/21/23 18:00 Stl Sh Tox Pr E STEC PCR Not Detected (Not Detect.) 07/21/23 18:00 Stool E coli O157 PCR Not applicable (Not Detect.) 07/21/23 18:00 Stl Enterotoxigenic E PCR Not Detected (Not Detect.) 07/21/23 18:00 Stool EPEC (PCR) Not Detected (Not Detect.) 07/21/23 18:00 Stool EAEC (PCR) Not Detected (Not Detect.) 07/21/23 18:00 Stl E. histolytica PCR Not Detected (Not Detect.) 07/21/23 18:00 Stool Giardia Lamblia PCR Not Detected (Not Detect.) 07/21/23 18:00 Stl P. shigelloides PCR Not Detected (Not Detect.) 07/21/23 18:00 Stool Salmonella PCR Not Detected (Not Detect.) 07/21/23 18:00 Stool Sapovirus (PCR) Not Detected (Not Detect.) 07/21/23 18:00 Stl Shigella/EIEC PCR Not Detected (Not Detect.) 07/21/23 18:00 St Y.enterocolitica PCR Not Detected (Not Detect.) 07/21/23 18:00 Stool Vibrio (PCR) Not Detected (Not Detect.) 07/21/23 18:00 Stl Vibrio cholerae PCR Not Detected (Not Detect.) 07/21/23 18:00 Stl Norovirus GI/GII PCR Not Detected (Not Detect.) 07/21/23 18:00 MARISSA Screen NEGATIVE (NEGATIVE) 07/19/23 08:52 MARISSA Titer TNP 07/19/23 08:52 MARISSA Titer 2 TNP 07/19/23 08:52 MARISSA Titer 3 TNP 07/19/23 08:52 MARISSA Pattern TNP 07/19/23 08:52 MARISSA Pattern 2 TNP 07/19/23 08:52 MARISSA Pattern 3 TNP 07/19/23 08:52 Proteinase 3 (PR3) Ab <1.0 AI 07/19/23 20:31 Myeloperoxidase Ab <1.0 AI 07/19/23 20:31 Glomerular Base Memb Ab <1.0 AI 07/19/23 08:52 Complement C3 120 mg/dL (83-193) 07/19/23 08:52 Complement C4 25 mg/dL (15-57) 07/19/23 08:52 Free [place] LC, Quant 117.1 mg/L (3.3-19.4) H 07/19/23 08:52 Free Lambda LC, Quant 80.8 mg/L (5.7-26.3) H 07/19/23 08:52 Free [place]/Lambda Ratio 1.45 (0.26-1.65) 07/19/23 08:52 Hep Bs Antigen Negative (Negative) 07/19/23 08:52 Hep Bs Antibody REACTIVE (Nonreactive) 07/19/23 08:52 Hep B Core Total Ab Nonreactive (Nonreactive) 07/19/23 08:52 Hepatitis C Ab (EIA) Nonreactive (Nonreactive) 07/19/23 08:52 HIV 1&2 Ab/P24 Ag 4thGn Nonreactive (Nonreactive) 07/21/23 06:28 Impressions Abdomen/Pelvis CT 07/18/23 15:42 IMPRESSION: 1. 3 mm nonobstructing right renal calculus. No left-sided renal calculi. No hydronephrosis of either kidney. 2. Diffusely decreased liver attenuation suggesting hepatic steatosis. Correlation with liver enzymes recommended. 3. Cholelithiasis. 4. Small amount of stranding within the right and left paracolic gutter. A few normal-sized lymph nodes also noted in these regions. These findings are nonspecific. Mesenteric adenitis is within the differential. Clinical correlation recommended. 5. The bladder is decompressed and therefore not accurately evaluated, however, there does appear to be diffuse bladder wall thickening, a nonspecific finding. Correlation with urinary analysis may be warranted. Fleischner guidelines were followed. Chest X-Ray 07/19/23 12:52 IMPRESSION: Post surgical change right lung with portions of the right hilum and heart border obscured which may be postoperative in nature; however, acute process cannot be excluded and comparison with prior imaging from another institution is recommended. Renal Ultrasound 07/19/23 20:56 IMPRESSION: Echogenic kidneys with renal cortical thickening. Appearance is suggestive of medical renal disease. Abdomen Ultrasound 07/21/23 12:47 IMPRESSION: 1. Large gallstone without wall thickening. 2. Small calcification left hepatic lobe. 3. Visualized pancreas, right kidney and CBD is unremarkable. 4. 4. Small right pleural effusion. Discharge Plan Discharge Anticipated Discharge Date/Time: 07/24/23 14:38 Patient Disposition: Home, Self-Care Discharge Diagnosis: acute renal failure hypokalemia urinary tract infection steroid dependence gallstone Referrals: Scarlet Frey MD [Physician] - 1 Week Refugio Lindsay MD [Physician] - 1 Week Discharge Medications: New cefuroxime axetil 500 mg Tablet 500 mg PO Q12H Qty: 8 0RF prednisone 5 mg tablet See Rx Instructions .ROUTE .COMPLEX Qty: 26 0RF Rx Instructions: 3 tabs (15 mg) daily for 4 days, then 2 tabs (10 mg) daily for 4 days, then 1 tab (5 mg) daily for 4 days, then half tab (2.5 mg) daily for 4 days potassium chloride 20 mEq tablet extended release 20 meq PO BID Qty: 60 0RF Continued clonazepam 1 mg tablet 1 mg PO BID aripiprazole 5 mg tablet 5 mg PO DAILY Discontinued prednisone 10 mg Tablet 25 mg PO DAILY Discharge Orders: Discharge Order (Routine); Ordered 07/24/23 Ordered By: Guero Howe Diet: Low fat, low cholesterol Activity on Discharge: As tolerated Stand Alone Forms: Patient Portal Discharge page Other Ambulatory Orders: Basic Metabolic Panel (Routine) Timeframe: [id number] Facility: [facility] - Location: Laboratory Ordered By: Guero Howe Care Plan Goals: renal recovery cure of infection Health Concerns: acute renal failure hypokalemia urinary tract infection steroid dependence Plan of Treatment: acute renal failure - recheck labs [basic metabolic panel, non-fasting] on 07/27/23 - follow up with Nephrology [Dr Lindsay, [facility]] in 1 week - avoid naproxen [Aleve], ibuprofen [Motrin], and other NSAIDs hypokalemia - take potassium chloride 20 mEq twice daily; recheck labs as above urinary tract infection - take cefuroxime 500 mg twice daily for 4 days steroid dependence - taper prednisone as follows: 3 tabs (15 mg) daily for 4 days, then 2 tabs (10 mg) daily for 4 days, then 1 tab (5 mg) daily for 4 days, then half tab (2.5 mg) daily for 4 days, then stop gallstone - low-fat diet Please follow up with your primary care doctor within 1 week. Return to the hospital if you experience recurrent or worsening symptoms. Assessment: See Discharge Summary.
[2023-07-24 13:56] LABS: Anion Gap 14 (12-20); Blood Urea Nitrogen 29 mg/dL (9-16); Calcium 8.6 mg/dL (8.4-10.2); Carbon Dioxide 22 mmol/L (22-29); Chloride 110 mmol/L (96-108); Creatinine Clr Calc Pharmacy 32.9; Estimated Glomerular Filt Rate 41; Glucose Random 138 mg/dL (60-115); Sodium 143 mmol/L (135-145)
--- NOTE | 2023-07-24 14:25 | MHC.CM.PN ---
Pt has been medically cleared for DC. She will arrange own transport, no services needed.
== END 2023-07-24 15:38 | disposition home or self-care (01) | DRG 469 ==
LOC: HO.ED 16:34 → HO.EDOVER 17:09 → HO.S3 07-19 03:35
PROVIDERS: Internal Medicine Nephrology; Admitting Provider Physician Assistant; Emergency Provider Emergency Medicine; Visit Provider Family Medicine
DX: N17.0 Acute kidney failure with tubular necrosis (principal); D69.59 Other secondary thrombocytopenia; J84.10 Pulmonary fibrosis, unspecified; N39.0 Urinary tract infection, site not specified; B96.20 Unspecified Escherichia coli [E. coli] as the cause of diseases classified elsewhere; F17.210 Nicotine dependence, cigarettes, uncomplicated; K80.20 Calculus of gallbladder without cholecystitis without obstruction; E87.6 Hypokalemia; Z16.24 Resistance to multiple antibiotics; J45.20 Mild intermittent asthma, uncomplicated; R31.9 Hematuria, unspecified; Z71.6 Tobacco abuse counseling; Z79.899 Other long term (current) drug therapy
CPT/HCPCS: 36415; 71046; 74176; 76705; 76775; 80048; 80053; 80076; 81001; 82247; 82272; 82570; 82607; 82728; 82746; 83520; 83521; 83540; 83615; 83735; 83970; 84145; 84156; 84300; 84702; 85007; 85027; 85045; 85610; 85999; 86021; 86038; 86140; 86160; 86704; 86706; 86803; 87040; 87086; 87088; 87147; 87186; 87205; 87340; 87389; 87507; 97161; 99285; J0696; J1643; J1940; J2020; J2405; P9047

== ENCOUNTER → 2023-07-18 17:03 | Outpatient (BNV) | payer OTHER, SELFPAY | PROVIDERS: Admitting Provider Physician Assistant; Emergency Provider Emergency Medicine; Visit Provider Physician Assistant | DX: N17.9 Acute kidney failure, unspecified (principal); D69.6 Thrombocytopenia, unspecified; R80.0 Isolated proteinuria; E87.6 Hypokalemia; N39.0 Urinary tract infection, site not specified; R31.9 Hematuria, unspecified | CPT/HCPCS: 99223; 99232; 99239 ==

== ENCOUNTER 2023-07-27 09:39 | Outpatient (REF) | payer OTHER, SELFPAY ==
[2023-07-27 11:00] LABS: Anion Gap 14 (12-20); Blood Urea Nitrogen 13 mg/dL (9-16); Calcium 8.3 mg/dL (8.4-10.2); Carbon Dioxide 28 mmol/L (22-29); Chloride 105 mmol/L (96-108); Estimated Glomerular Filt Rate > 60; Glucose Random 77 mg/dL (60-115); Potassium 2.7 mmol/L (3.3-5.1); Sodium 144 mmol/L (135-145)
== END 2023-07-27 09:40 | disposition home or self-care (01) ==
LOC: HO.LAB 09:39
PROVIDERS: PCP Internal Medicine; Visit Provider Family Medicine
DX: N17.9 Acute kidney failure, unspecified (principal); E87.6 Hypokalemia
CPT/HCPCS: 36415; 80048

== ENCOUNTER 2023-07-28 11:47 | Emergency (ER) | payer OTHER, SELFPAY ==
--- NOTE | ~2023-07-28 | XR_ITS ---
EXAMINATION: XR CHEST CLINICAL INFORMATION: Left-sided rhonchi COMPARISON: 07/19/2023 TECHNIQUE: 2 views of the chest were obtained. FINDINGS: Normal cardiomediastinal silhouette. Postsurgical changes of the right lung with chain sutures in place. There are coarse interstitial markings without dense focal consolidation. There is a small left pleural effusion that is new since the prior study. No acute osseous abnormality. XR/XR chest 2V IMPRESSION: 1. Small left pleural effusion, new since the prior study. 2. Postsurgical changes of the right lung. 3. Coarse interstitial markings without dense focal consolidation.
[2023-07-28 11:54] VITALS: BP 152/81; PULSE 73; RESP 18; TEMP 37.1; O2SAT 98; BMI 24.2
--- NOTE | 2023-07-28 11:54 | ED.GENADULT ---
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 She states the swelling involves the feet, lower legs and has recently gone up to her thighs and inguinal area. She has ongoing suprapubic pain and some mild burning w/ urination. She has 1 more dose of Abx for her UTI. No flank pain and upper abdominal pain. MD complaint: LE edema Onset (ago): week(s) (1.5) Location: left, right and lower extremity Radiation: proximal Severity: moderate Pain Consistency: constant Relieving factors: rest Exacerbating factors: movement Associated symptoms: cough Treatments prior to arrival: none Related Data Home Medications Medication Instructions Recorded Confirmed aripiprazole 5 mg tablet 5 mg PO DAILY 07/18/23 07/18/23 clonazepam 1 mg tablet 1 mg PO BID 07/18/23 07/18/23 Previous Rx's Medication Instructions Recorded cefuroxime axetil 500 mg tablet 500 mg PO Q12H #8 tabs 07/24/23 potassium chloride 20 mEq 20 meq PO BID #60 tabs 07/24/23 tablet,extended release prednisone 5 mg tablet See Rx Instructions .Route 07/24/23 .COMPLEX #26 tabs cefuroxime axetil 250 mg tablet 250 mg PO BID #8 tabs 07/28/23 furosemide 20 mg tablet (Lasix) 20 mg PO DAILY #7 tabs 07/28/23 potassium chloride 20 mEq 40 meq (2 x 20 mEq) PO DAILY #20 07/28/23 tablet,extended release tabs spironolactone 25 mg tablet 25 mg PO DAILY #7 tabs 07/28/23 (Aldactone) albuterol sulfate 90 mcg/actuation 2 puff inhalation Q4-6H PRN 07/30/23 aerosol inhaler (ProAir HFA) shortness of breath or wheezing #8.5 grams codeine 10 mg-guaifenesin 100 mg/5 10 ml PO Q6H PRN cough #237 mL 07/30/23 mL oral liquid nirmatrelvir 300 mg (150 mg See Rx Instructions PO .COMPLEX 07/30/23 x2)-ritonavir 100 mg tablet,dose #30 ea pack (Paxlovid) Allergies Allergy/AdvReac Type Severity Reaction Status Date / Time zolpidem [From Ambien] Allergy Difficulty Verified 07/28/23 12:00 Breathing iodine AdvReac Rash Verified 07/28/23 12:00 Review of Systems Review of Systems: Yes all other systems are reviewed and are negative [facility] Past Medical History Medical History Asthma Chronic lung disease Social History Social History Household Members: None Housing: Apartment Do you presently have visiting nurse or other home services: No Patient Tobacco Use Status: Current everyday Tobacco user Tobacco use type: Cigarette Cigarettes Per Day: 8 e-Cigarette/Vaping Use: Currently Using Second Hand Smoke Exposure: No Substance Use Type: Marijuana Advance Directives: No Advance Directives Information Provided: No service: No Physical Exam ED Vital Signs: Vital Signs - 24 hr 07/28/23 11:54 07/28/23 14:11 Temperature 98.8 F Pulse Rate 73 62 Respiratory Rate 18 15 Blood Pressure 152/81 H 165/76 H Pulse Oximetry 98 97 Oxygen Delivery Method Room Air Room Air BMI result Body Mass Index 24.2 Appearance: Alert. Oriented X3. No acute distress. Head: normocephalic, atraumatic. Eyes: Pupils equal, round and reactive to light. ENT: Pharynx normal. No tonsillar swelling or exudate. Neck: Normal inspection. Neck supple. CVS: Normal heart rate and rhythm. Pulses normal. Respiratory: No respiratory distress. Breath sounds with scattered rhonchi in left lung, end expiratory wheeze in LLL only. Abdomen: Soft and nontender. +BS x4 Skin: Skin warm and dry. Normal skin color. Normal skin turgor. No rashes. Extremities: 1+ lower extremity edema bilaterally. No joint swelling. NO calf redness or tenderness Neuro/psych: Oriented X 3. No motor deficit. No sensory deficit. CN II-XII intact. Normal speech and cognition. Course Course Course Narrative: This is a rapid medical exam: Additional HPI, ROS, PE not included below will be deferred to primary provider. Patient is a 37-year-old Filipino-speaking female with history of asthma, chronic lung disease presenting to the emergency department stating that she was discharged 4 days ago, since discharge has had abdominal and lower extremity edema. She was admitted for OUSMANE, tachycardia, bandemia, thrombocytopenia, and leukocytosis. States she has been taking her medications as prescribed. Plan: UA, labs Medications Administered Discontinued Medications Generic Name Dose Route Start Last Admin Trade Name Freq PRN Reason Stop Dose Admin Potassium Chloride 40 meq 07/28/23 13:54 07/28/23 14:27 Potassium Chloride Er 20 Meq Tab.Er.Prt PO 07/28/23 13:55 40 meq ONCE ONE Administration Spironolactone 25 mg 07/28/23 13:54 07/28/23 14:27 Spironolactone 25 Mg Tablet PO 07/28/23 13:55 25 mg ONCE ONE Administration Protocol Medical Decision Making Medical Decision Making MDM Narrative: 37 yo Filipino speaking female with history of ILD since childhood (follows w/ pulm in [place], biopsy in the past w/ pulm fibrosis) on chronic steroids, asthma, with recent admission to [facility] 07/18-07/24 for OUSMANE due to multifactorial ATN, hypokalemia, UTI who presents back to the ER for evaluation of worsening LE edema for the last 1.5 weeks. No SOB but has some acute on chronic cough. SPO2 97% on room air. LLL wheeze and scattered rhonchi. Labs showing mild chronic hypokalemia with resolution of OUSMANE. She has 1+ pitting edema of the b/l LE. no evidence of DVT. likely due to IVF given for OUSMANE. she is not currently on a diruetic. given a dose of spironolactone here in the ER along with PO KCL 40 meQ. She has an appointment with nephrology on Sunday. WBC 17K without source of infection. on chronic prednisone. all blood lines including H/H, platelets have increased significantly since last lab check. low suspicion for acute infection. she is already on abx for UTI, will extend for 14 day course given some mild ongoing dysuria. no back pain, N/V/D or fevers. she is not septic at this time. comfortable w/ discharge home, close outpatient f/u with nephro Differential Diagnosis Differential Diagnoses: The differential diagnosis associated with the presentation includes LE edema due to IVF administered inpatient for OUSMANE, acute CHF, fluid retention due to salt intake, doubt DVT Admission/Observation Consideration of admission/observation: Escalation of care including admission/observation considered Consult Healthcare Provider Management of the patient was discussed with: Environmental Science Technician spoke w/ spring tester who is recommending both lasix and aldactone along with increasing KCL supplementation until repeat labs on sunday and appotinent w/ nephro Lab Data MDM Lab Attestation statement: I reviewed the patient's lab results. leukocytosis with significant increase in all blood lines, question accuracy. no evidence of active infection 07/28/23 12:19 07/28/23 12:19 Labs: Lab Results 07/28/23 Range/Units 12:19 WBC 17.5 H (4.8-10.8) X10*3/uL RBC 3.63 L D (4.20-5.50) X10*6/uL Hgb 10.5 L D (12.0-16.0) g/dl Hct 32.3 L D (37.0-47.0) % MCV 89.0 (80.0-98.0) fL MCH 28.9 (27.0-33.0) pg MCHC 32.5 (31.0-35.0) g/dl RDW 15.0 (11.0-16.0) % Plt Count 385 D (160-400) X10*3/uL MPV 9.7 (9.4-12.3) fL Immature Gran % (Auto) 2.6 H (0.0-0.4) % Neut % (Auto) 85.0 H (45-73) % Lymph % (Auto) 6.8 L (20-40) % Wood % (Auto) 5.4 (2-11) % Eos % (Auto) 0.1 (0-4) % Baso % (Auto) 0.1 (0-2) % Lymph # (Auto) 1.2 (1.2-4.9) X10*3/uL Wood # (Auto) 0.9 (0.1-1.2) X10*3/uL Eos # (Auto) 0.0 (0.0-0.4) X10*3/uL Baso # (Auto) 0.0 (0.0-0.2) X10*3/uL Abs Immat Gran (auto) 0.45 H (0.00-0.03) X10*3/uL Absolute Neuts (auto) 14.9 H (2.0-8.3) x10*3/uL Absolute Nucleated RBC 0.000 (0.0-0.012) X10*3/uL Nucleated RBC % (auto) 0.0 (0.0-0.2) /100WBC PT 11.9 (11.1-13.3) SEC INR 1.0 (0.9-1.1) Sodium 144 (135-145) mmol/L Potassium 3.1 L (3.3-5.1) mmol/L Chloride 106 (96-108) mmol/L Carbon Dioxide 27 (22-29) mmol/L Anion Gap 14 (12-20) BUN 15 (9-16) mg/dL Creatinine 0.79 (0.5-1.4) mg/dL Estim Creat Clear Calc 67.5 Estimated GFR > 60 Random Glucose 107 (60-115) mg/dL Calcium 9.1 D (8.4-10.2) mg/dL Total Bilirubin 0.4 (0.0-1.0) mg/dL AST 14 (5-31) U/L ALT 18 (0-31) U/L Alkaline Phosphatase 103 (39-117) U/L B-Natriuretic Peptide 250 H (<100) pg/mL Total Protein 6.9 (6.5-8.0) g/dL Albumin 3.5 (3.5-5.0) g/dL Urine Color Yellow Urine Appearance Clear Urine pH 7.5 (5.0-9.0) Ur Specific [place] 1.010 (1.005-1.025) Urine Protein Negative (Neg-Trace) mg/dL Urine Glucose (UA) Negative (Negative) mg/dL Urine Ketones Negative (Negative) mg/dL Urine Blood Negative (Negative) Urine Nitrite Negative (Negative) Ur Leukocyte Esterase Small (1+) H (Negative) Urine RBC 0-2 (0-2) /HPF Urine WBC 21-50 H (0-5) /HPF Ur Squamous Epith Cells 3-5 (0-2) /HPF Urine Bacteria None Seen (None Seen) Hyaline Casts 0-2 (0-2) /LPF Independent Interpretation I performed an independent interpretation of an: Plain X-Ray Interpretation: cxr with chronic interstitial markings no significant change from prior, agree w/ radiology read Radiology Impression Discussion of test interpretation with radiology: I have reviewed the radiologist's reading. Radiologist Impression: XR/XR chest 2V IMPRESSION: 1. Small left pleural effusion, new since the prior study. 2. Postsurgical changes of the right lung. 3. Coarse interstitial markings without dense focal consolidation. Independent Historian Clinical information obtained from an independent historian. History obtained from or confirmed by: Parent External Record Review External record reviewed: Inpatient record, Outpatient record, Prior outpatient labs and Prior outpatient radiology Prescription Management I considered prescription management with: Other (diuretic) Chronic Conditions Patient?s care impacted by: Other (pulmonary fibrosis, ILD on chronic steroids) Critical Care Time Critical Care Time Critical Care Time: No Discharge Plan Discharge Clinical Impression: Hypokalemia, Swelling of lower extremity Patient Disposition: Home, Self-Care Instructions: Hypokalemia (ED), Edema (ED) Additional Instructions: Your lab workup today showed improvement of your kidney function back to normal. Take the prescribed diuretics (furosemide and spironolactone) to help excrete with the fluid in your legs. Increase your potassium supplements to 80 meQ per day while you are on diruetic medication. Follow up with Nephrology as scheduled on Sunday Take the prescribed antibiotics as directed, complete the entire course to complete 2 week coure If you develop new or worsening symptoms call 911 or come back to the ER for further evaluation. Stevens an?lisis de laboratorio de hoy mostr? sonam mejora de la funci?n renal y volvi? a la normalidad. [place] los diur?ticos recetados (furosemida y espironolactona) para ayudar a excretar el l?quido en las piernas. Aumente hanna suplementos de potasio a 80 meQ por d?a mientras est? tomando medicamentos diur?ticos. Seguimiento con Nefrolog?a seg?n lo programado el kirstin. [place] los antibi?ticos recetados seg?n las indicaciones, complete todo el ciclo hasta completar un ciclo de 2 semanas. Si desarrolla s?ntomas nuevos o que empeoran, llame al 911 o regrese a la harry de emergencias para sonam evaluaci?n adicional. Prescriptions: New furosemide [Lasix] 20 mg tablet 20 mg PO DAILY Qty: 7 0RF spironolactone [Aldactone] 25 mg tablet 25 mg PO DAILY Qty: 7 0RF potassium chloride 20 mEq tablet extended release 40 meq PO DAILY Qty: 20 0RF cefuroxime axetil 250 mg tablet 250 mg PO BID Qty: 8 0RF No Action Paxlovid 300 mg (150 mg x 2)-100 mg tablets,dose pack See Rx Instructions .ROUTE .COMPLEX Qty: 30 0RF Rx Instructions: take TWO 150 mg tablets of nirmatrelvir with ONE 100 mg tablet of ritonavir twice daily for 5 days codeine-guaifenesin 10-100 mg/5 mL liquid 10 ml PO Q6H PRN (Reason: cough) Qty: 237 0RF albuterol sulfate [ProAir HFA] 90 mcg/actuation HFA aerosol inhaler 2 puff inhalation Q4-6H PRN (Reason: shortness of breath or wheezing) Qty: 8.5 0RF clonazepam 1 mg tablet 1 mg PO BID aripiprazole 5 mg tablet 5 mg PO DAILY cefuroxime axetil 500 mg Tablet 500 mg PO Q12H Qty: 8 0RF prednisone 5 mg tablet See Rx Instructions .ROUTE .COMPLEX Qty: 26 0RF Rx Instructions: 3 tabs (15 mg) daily for 4 days, then 2 tabs (10 mg) daily for 4 days, then 1 tab (5 mg) daily for 4 days, then half tab (2.5 mg) daily for 4 days potassium chloride 20 mEq tablet extended release 20 meq PO BID Qty: 60 0RF Referrals: Scarlet Frey MD [Primary Care Provider] - Discharge Date/Time: 07/28/23 16:49 Print Language: Filipino
[2023-07-28 12:24] LABS: MANUAL DIFF FLAG NO
[2023-07-28 12:30] LABS: Appearance Urine Clear; Color Urine Yellow; Glucose Urine UA Negative (Negative); Leukocyte Esterase Urine Small (1+) (Negative); Nitrite Urine Negative (Negative); PH 7.5 (5.0-9.0); UMIC TRIGGER UACC YES; Urine Blood Negative (Negative); Urine Ketones Negative (Negative); Urine Protein Negative (Neg-Trace)
[2023-07-28 12:34] LABS: Basophils Percent Auto 0.1 % (0-2); Eosinophils Percent Auto 0.1 % (0-4); Hematocrit 32.3 % (37.0-47.0); Hemoglobin 10.5 g/dl (12.0-16.0); Imm Gran Abs Auto 0.45 X10*3/uL (0.00-0.03); Imm Gran Pct Auto 2.6 % (0.0-0.4); Lymphocytes Absolute Auto 1.2 X10*3/uL (1.2-4.9); Lymphocytes Percent Auto 6.8 % (20-40); Mean Corpuscular HGB Conc 32.5 g/dl (31.0-35.0); Mean Corpuscular Hemoglobin 28.9 pg (27.0-33.0); Mean Platelet Volume 9.7 fL (9.4-12.3); Monocytes Absolute Auto 0.9 X10*3/uL (0.1-1.2); Monocytes Percent Auto 5.4 % (2-11); Neutrophils Absolute Auto 14.9 x10*3/uL (2.0-8.3); Platelet Count 385 X10*3/uL (160-400); Red Blood Count 3.63 X10*6/uL (4.20-5.50); White Blood Count 17.5 X10*3/uL (4.8-10.8)
[2023-07-28 12:35] LABS: Bacteria Urine None Seen (None Seen); Hyaline Casts Urine 0-2 /LPF (0-2); RBC Urine 0-2 /HPF (0-2); UACC Culture Trigger YES; WBC Urine 21-50 /HPF (0-5)
[2023-07-28 12:40] LABS: Prothrombin Time 11.9 SEC (11.1-13.3)
[2023-07-28 12:42] LABS: Alanine Aminotransferase 18 U/L (0-31); Albumin Level 3.5 g/dL (3.5-5.0); Alkaline Phosphatase 103 U/L (39-117); Anion Gap 14 (12-20); Aspartate Amino Transferase 14 U/L (5-31); Bilirubin Total 0.4 mg/dL (0.0-1.0); Blood Urea Nitrogen 15 mg/dL (9-16); Calcium 9.1 mg/dL (8.4-10.2); Carbon Dioxide 27 mmol/L (22-29); Chloride 106 mmol/L (96-108); Creatinine Clr Calc Pharmacy 67.5; Estimated Glomerular Filt Rate > 60; Glucose Random 107 mg/dL (60-115); Potassium 3.1 mmol/L (3.3-5.1); Sodium 144 mmol/L (135-145); Total Protein 6.9 g/dL (6.5-8.0)
[2023-07-28 14:11] VITALS: BP 165/76; PULSE 62; RESP 15; O2SAT 97
[2023-07-28] MEDS: Spironolactone 25 MG TABLET PO (14:27)
[2023-07-28] MEDS: Potassium Chloride ER 20 MEQ TAB.ER.PRT 40 MEQ PO (14:27)
[2023-07-28 15:59] LABS: B Type Natriuretic Peptide 250 pg/mL (<100)
--- NOTE | 2023-07-28 16:48 | PC.NURSE ---
pt cleared for discharge. discharge instructions reviewed with pt and mother at the bedside using staff medical bill processor.
== END 2023-07-28 16:49 | disposition home or self-care (01) ==
PROVIDERS: Physician Assistant; Registered Nurse Emergency; Emergency Provider Internal Medicine; PCP Internal Medicine
DX: E87.6 Hypokalemia (principal); R60.0 Localized edema; N39.0 Urinary tract infection, site not specified; R06.2 Wheezing; F17.210 Nicotine dependence, cigarettes, uncomplicated; Z79.52 Long term (current) use of systemic steroids; Z79.899 Other long term (current) drug therapy
CPT/HCPCS: 36415; 71046; 80053; 81001; 83880; 85025; 85610; 87086; 87088; 87186; 99283; 99284

== ENCOUNTER 2023-07-29 22:19 | Emergency (ER) | payer OTHER, SELFPAY ==
--- NOTE | 2023-07-29 | ECG_ITS ---
Test Reason : chest pain Blood Pressure : / mmHG Vent. Rate : 111 BPM Atrial Rate : 111 BPM P-R Int : 130 ms QRS Dur : 086 ms QT Int : 350 ms P-R-T Axes : 050 015 017 degrees QTc Int : 476 ms Sinus tachycardia RSR' or QR pattern in V1 suggests right ventricular conduction delay Possible Left atrial enlargement Minimal voltage criteria for LVH, may be normal variant ( R in aVL ) Nonspecific T wave abnormality Abnormal ECG No previous ECGs available Referred By: Generic ED Physician Electronically Signed By:LIA TEJADA MD
[2023-07-29 22:26] VITALS: BP 122/69; PULSE 113; RESP 15; TEMP 37; O2SAT 93; BMI 23.8
[2023-07-29 23:43] LABS: Hematocrit 29.6 % (37.0-47.0); Hemoglobin 9.9 g/dl (12.0-16.0); Mean Corpuscular HGB Conc 33.4 g/dl (31.0-35.0); Mean Corpuscular Hemoglobin 29.3 pg (27.0-33.0); Mean Corpuscular Volume 87.6 fL (80.0-98.0); Mean Platelet Volume 9.4 fL (9.4-12.3); Platelet Count 294 X10*3/uL (160-400); Red Blood Count 3.38 X10*6/uL (4.20-5.50); Red Cell Distribution Width 15.1 % (11.0-16.0)
[2023-07-29 23:50] LABS: WBC ABN SCTR FOR CBC 1
--- NOTE | 2023-07-29 23:57 | ED_ITS ---
HPI - Chest Pain General Chief Complaint: Chest Pain Stated Complaint: Tachycardia/Fever per pt Time Seen by Provider: 07/29/23 23:50 Source: patient Mode of arrival: ambulatory Limitations: no limitations History of Present Illness HPI narrative: 37 yo Citizen [place] speaking female with history of ILD since childhood (follows w/ pulm in [place], biopsy in the past w/ pulm fibrosis) on chronic steroids, asthma, with recent admission to [facility] 07/18-07/[facility] for OUSMANE due to multifactorial ATN, hypokalemia, UTI was seen here yesterday for worsening of lower extremity edema last 10 days, presents back to the ER for subjective, fever palpitation coughing and worsening of the leg swelling had low-grade temperature prior to arrival took NyQuil Related Data Home Medications Medication Instructions Recorded Confirmed aripiprazole 5 mg tablet 5 mg PO DAILY 07/18/23 07/18/23 clonazepam 1 mg tablet 1 mg PO BID 07/18/23 07/18/23 Previous Rx's Medication Instructions Recorded cefuroxime axetil 500 mg tablet 500 mg PO Q12H #8 tabs 07/24/23 potassium chloride 20 mEq 20 meq PO BID #60 tabs 07/24/23 tablet,extended release prednisone 5 mg tablet See Rx Instructions .Route 07/24/23 .COMPLEX #26 tabs cefuroxime axetil 250 mg tablet 250 mg PO BID #8 tabs 07/28/23 furosemide 20 mg tablet (Lasix) 20 mg PO DAILY #7 tabs 07/28/23 potassium chloride 20 mEq 40 meq (2 x 20 mEq) PO DAILY #20 07/28/23 tablet,extended release tabs spironolactone 25 mg tablet 25 mg PO DAILY #7 tabs 07/28/23 (Aldactone) albuterol sulfate 90 mcg/actuation 2 puff inhalation Q4-6H PRN 07/30/23 aerosol inhaler (ProAir HFA) shortness of breath or wheezing #8.5 grams codeine 10 mg-guaifenesin 100 mg/5 10 ml PO Q6H PRN cough #237 mL 07/30/23 mL oral liquid nirmatrelvir 300 mg (150 mg See Rx Instructions PO .COMPLEX 07/30/23 x2)-ritonavir 100 mg tablet,dose #30 ea pack (Paxlovid) Allergies Allergy/AdvReac Type Severity Reaction Status Date / Time zolpidem [From Ambien] Allergy Difficulty Verified 07/28/23 12:00 Breathing iodine AdvReac Rash Verified 07/28/23 12:00 Review of Systems 2 Review of Systems: Yes all other systems are reviewed and are negative [facility] Past Medical History Medical History Asthma Chronic lung disease Social History Social History Household Members: None Housing: Apartment Do you presently have visiting nurse or other home services: No Patient Tobacco Use Status: Current everyday Tobacco user Tobacco use type: Cigarette Cigarettes Per Day: 8 e-Cigarette/Vaping Use: Currently Using Second Hand Smoke Exposure: No Substance Use Type: Marijuana Advance Directives: No Advance Directives Information Provided: No service: No Physical Exam 2 Vital Signs: Vital Signs: Last Vital Signs Temp 98.6 F 07/29/23 22:26 Pulse 113 H 07/29/23 22:26 Resp 15 07/29/23 22:26 BP 122/69 07/29/23 22:26 Pulse Ox 93 07/29/23 22:26 O2 Del Method Room Air 07/29/23 22:26 BMI result Body Mass Index 23.8 Appearance: Alert. Oriented X3. No acute distress. Eyes: PERRLA, ENT: Pharynx normal. Oral Mucosa moist Neck: Normal inspection. Neck supple. CVS: Normal heart rate and rhythm. Pulses normal. Respiratory: No respiratory distress. Equal air entry bilateral, bilateral fine rales in the base Abdomen: Soft and nontender. Bowel sounds are present, no mass palpable, no CVA tenderness Skin: Skin warm and dry. Normal skin color. Normal skin turgor. Extremities:3 + lower extremity edema. No calf tenderness Neuro: Oriented X 3. No motor deficit. No sensory deficit.No cerebellar signs , cranial nerves II-XII intact Medications Administered Discontinued Medications Generic Name Dose Route Start Last Admin Trade Name Freq PRN Reason Stop Dose Admin Potassium Bicarbonate 50 meq 07/30/23 00:09 07/30/23 00:21 Potassium Bicarbonate/Cit Ac 25 Meq Tablet.Eff PO 07/30/23 00:10 50 meq ONCE ONE Administration Potassium Chloride 20 meq 07/30/23 00:09 07/30/23 00:22 Potassium Chloride Er 20 Meq Tab.Er.Prt PO 07/30/23 00:10 20 meq ONCE ONE Administration Medical Decision Making Medical Decision Making [facility] Narrative: Patient chronic steroid by ALT comes here for cough which started earlier today patient was seen here yesterday for low potassium and was given potassium patient took her p.o. potassium also noted to have potassium 2.5 patient on furosemide 20 mg daily will check for the COVID/flu/RSV and give potassium replacement and recheck the potassium patient is on 20 mg and potassium twice daily at home 130 am patient COVID positive will give paxlovid as patient is high risk patient already on prednisone advised to continue same Differential Diagnosis Differential Diagnoses: The differential diagnosis associated with the presentation includes Atypical pneumonia/viral pneumonia/COVID/influenza/RSV Lab Data [facility] Lab Attestation statement: I reviewed the patient's lab results. 07/29/23 23:38 07/29/23 23:38 Labs: Lab Results 07/29/23 07/30/23 Range/Units 23:38 00:28 WBC 11.8 H (4.8-10.8) X10*3/uL RBC 3.38 L (4.20-5.50) X10*6/uL Hgb 9.9 L (12.0-16.0) g/dl Hct 29.6 L (37.0-47.0) % MCV 87.6 (80.0-98.0) fL MCH 29.3 (27.0-33.0) pg MCHC 33.4 (31.0-35.0) g/dl RDW 15.1 (11.0-16.0) % Plt Count 294 (160-400) X10*3/uL MPV 9.4 (9.4-12.3) fL Immature Gran % (Auto) Cancelled Neut % (Auto) Cancelled Lymph % (Auto) Cancelled Sharp % (Auto) Cancelled Eos % (Auto) Cancelled Baso % (Auto) Cancelled Lymph # (Auto) Cancelled Sharp # (Auto) Cancelled Eos # (Auto) Cancelled Baso # (Auto) Cancelled Abs Immat Gran (auto) Cancelled Absolute Neuts (auto) Cancelled Absolute Nucleated RBC 0.000 (0.0-0.012) X10*3/uL Nucleated RBC % (auto) 0.0 (0.0-0.2) /100WBC Neutrophils % (Manual) 93 H (45-73) % Band Neutrophils % 0 L (3-5) % Lymphocytes % (Manual) 4 L (20-40) % Monocytes % (Manual) 3 (2-11) % Abs Neuts (Manual) 11.0 H (2.0-8.3) X10*3/uL Lymphocytes # (Manual) 0.5 L (1.2-4.9) X10*3/uL Monocytes # (Manual) 0.4 (0.1-1.2) X10*3/uL Platelet Estimate NORMAL (NORMAL) Plt Morphology Comment NORMAL RBC Morphology NORMAL Sodium 141 (135-145) mmol/L Potassium 2.5 L* (3.3-5.1) mmol/L Chloride 101 (96-108) mmol/L Carbon Dioxide 29 (22-29) mmol/L Anion Gap 14 (12-20) BUN 9 (9-16) mg/dL Creatinine 0.75 (0.5-1.4) mg/dL Estim Creat Clear Calc 70.6 Estimated GFR > 60 Random Glucose 115 (60-115) mg/dL Calcium 8.3 L D (8.4-10.2) mg/dL Total Bilirubin 0.5 (0.0-1.0) mg/dL AST 18 (5-31) U/L ALT 16 (0-31) U/L Alkaline Phosphatase 93 (39-117) U/L Troponin I High Sens 24.9 H (<3.5-17.0) ng/L Total Protein 6.2 L (6.5-8.0) g/dL Albumin 3.2 L (3.5-5.0) g/dL Influenza Type A (PCR) NEGATIVE (Negative) Influenza Type B (PCR) NEGATIVE (Negative) RSV RNA Qual (PCR) NEGATIVE (Negative) SARS-CoV-2 RNA (RT-PCR) POSITIVE A (Negative) Discharge Plan Discharge Clinical Impression: COVID-19, Acute hypokalemia Patient Disposition: Still a Patient Instructions: Hypokalemia (ED), COVID-19 (Coronavirus Disease 2019) (ED) Additional Instructions: Continue taking your prednisone as prescribed Use albuterol inhaler for wheezing and cough Cough syrup as prescribed Increase the dose of potassium to 2 capsules twice daily for next 5 days and recheck your potassium Have extra bananas and orange juice at home Take paxlovid as prescribed Report to the ER if drop in oxygen less than 91% Prescriptions: New Paxlovid 300 mg (150 mg x 2)-100 mg tablets,dose pack See Rx Instructions .ROUTE .COMPLEX Qty: 30 0RF Rx Instructions: take TWO 150 mg tablets of nirmatrelvir with ONE 100 mg tablet of ritonavir twice daily for 5 days codeine-guaifenesin 10-100 mg/5 mL liquid 10 ml PO Q6H PRN (Reason: cough) Qty: 237 0RF albuterol sulfate [ProAir HFA] 90 mcg/actuation HFA aerosol inhaler 2 puff inhalation Q4-6H PRN (Reason: shortness of breath or wheezing) Qty: 8.5 0RF No Action furosemide [Lasix] 20 mg tablet 20 mg PO DAILY Qty: 7 0RF spironolactone [Aldactone] 25 mg tablet 25 mg PO DAILY Qty: 7 0RF potassium chloride 20 mEq tablet extended release 40 meq PO DAILY Qty: 20 0RF cefuroxime axetil 250 mg tablet 250 mg PO BID Qty: 8 0RF clonazepam 1 mg tablet 1 mg PO BID aripiprazole 5 mg tablet 5 mg PO DAILY cefuroxime axetil 500 mg Tablet 500 mg PO Q12H Qty: 8 0RF prednisone 5 mg tablet See Rx Instructions .ROUTE .COMPLEX Qty: 26 0RF Rx Instructions: 3 tabs (15 mg) daily for 4 days, then 2 tabs (10 mg) daily for 4 days, then 1 tab (5 mg) daily for 4 days, then half tab (2.5 mg) daily for 4 days potassium chloride 20 mEq tablet extended release 20 meq PO BID Qty: 60 0RF
[2023-07-30 00:02] LABS: Alanine Aminotransferase 16 U/L (0-31); Albumin Level 3.2 g/dL (3.5-5.0); Alkaline Phosphatase 93 U/L (39-117); Anion Gap 14 (12-20); Aspartate Amino Transferase 18 U/L (5-31); Bilirubin Total 0.5 mg/dL (0.0-1.0); Blood Urea Nitrogen 9 mg/dL (9-16); Calcium 8.3 mg/dL (8.4-10.2); Carbon Dioxide 29 mmol/L (22-29); Chloride 101 mmol/L (96-108); Creatinine Clr Calc Pharmacy 70.6; Estimated Glomerular Filt Rate > 60; Glucose Random 115 mg/dL (60-115); Potassium 2.5 mmol/L (3.3-5.1); Sodium 141 mmol/L (135-145); Total Protein 6.2 g/dL (6.5-8.0)
[2023-07-30 00:03] LABS: Troponin-I High Sensitivity 24.9 ng/L (<3.5-17.0)
[2023-07-30] MEDS: Potassium Bicarbonate/Cit AC 25 MEQ TABLET.EFF 50 MEQ PO (00:21)
[2023-07-30] MEDS: Potassium Chloride ER 20 MEQ TAB.ER.PRT PO (00:22)
[2023-07-30 00:28] LABS: Band Neutrophils Percent 0 % (3-5); Lymphocytes Percent Manual 4 % (20-40); Monocytes Percent Manual 3 % (2-11); Neutrophils Percent Manual 93 % (45-73); Platelet Estimate NORMAL (NORMAL); Platelet Morphology Comment NORMAL
[2023-07-30 00:29] LABS: RBC Morphology NORMAL
[2023-07-30 00:32] LABS: Lymphocytes Absolute Manual 0.5 X10*3/uL (1.2-4.9); Monocytes Absolute Manual 0.4 X10*3/uL (0.1-1.2); White Blood Count 11.8 X10*3/uL (4.8-10.8)
[2023-07-30 01:09] LABS: Influenza A PCR NEGATIVE (Negative); Influenza B PCR NEGATIVE (Negative); Resp Syncy Virus RNA Qual PCR NEGATIVE (Negative); SARS COV2 PCR INHOUSE POSITIVE (Negative)
[2023-07-30] MEDS: guaiFEN/Codeine SF 200/20/10ML 10 ML LIQUID PO (02:01)
[2023-07-30] MEDS: Acetaminophen 325 MG TABLET 650 MG PO (02:02)
[2023-07-30] MEDS: Albuterol Sulfate 90 MCG 8 GM INHALER 2 PUFF INHALE (02:02)
[2023-07-30 03:03] LABS: Anion Gap 17 (12-20); Carbon Dioxide 29 mmol/L (22-29); Chloride 100 mmol/L (96-108); Potassium 4.1 mmol/L (3.3-5.1); Sodium 142 mmol/L (135-145)
== END 2023-07-30 03:50 | disposition home or self-care (01) ==
PROVIDERS: Emergency Provider Internal Medicine; PCP Internal Medicine
DX: U07.1 COVID-19 (principal); E87.6 Hypokalemia; R07.89 Other chest pain; R00.0 Tachycardia, unspecified; Z79.899 Other long term (current) drug therapy
CPT/HCPCS: 0241U; 36415; 80051; 80053; 84484; 85007; 85027; 93005; 99283; 99284

== ENCOUNTER 2023-08-17 09:48 | Emergency (ER) | payer OTHER, SELFPAY ==
--- NOTE | ~2023-08-17 | CT_ITS ---
EXAMINATION: CT ABDOMEN AND PELVIS WITHOUT CONTRAST CLINICAL INFORMATION: Right flank pain COMPARISON: Previous CT of the abdomen and pelvis and ultrasound of the kidneys from earlier this month TECHNIQUE: Multidetector volumetric imaging was performed from the superior aspect of the liver through the pubic symphysis. Sagittal and coronal reformatted images were obtained on the technologist's workstation. This CT examination was performed using dose optimization techniques as appropriate, variously including the following: *Automated exposure control *Adjustment of mA and/or kV according to patient size (this includes techniques or standardized protocols for targeted exams where dose is matched to indication/reason for exam; i.e. extremities or head) *Use of iterative reconstruction technique DLP: 283 mGy-cm FINDINGS: LUNG BASES: Postsurgical change to the right middle lobe. 7 mm right lower lobe nodule axial image 26 series smaller left lower lobe nodules largest measuring 4 mm axial image 32 series July 2023 exam. LIVER, GALLBLADDER, AND BILIARY TREE: The liver is normal in size, shape, and attenuation. No focal hepatic lesion or biliary ductal dilatation is present. Small calcification in the left lobe of the liver. Large gallstone in the gallbladder measuring 2 x 2.5 cm. No biliary duct dilatation.. PANCREAS: Unremarkable. SPLEEN: Unremarkable. ADRENAL GLANDS: Unremarkable. KIDNEYS AND URETERS: The kidneys are normal in size, shape, and attenuation. No hydronephrosis, hydroureter. Small 3 mm stone in the mid right kidney. No perinephric stranding. BLADDER: There may be diffuse bladder wall thickening. This is similar to previous exam. GASTROINTESTINAL TRACT: The small and large bowel are unremarkable. The appendix is unremarkable. ABDOMINAL WALL: No significant hernia is appreciated. LYMPH NODES: Small, small bowel mesentery lymph nodes. Small retroperitoneal lymph nodes. No enlarged lymph nodes. VASCULAR: Unremarkable. PELVIC VISCERA: Unremarkable. There is a 2.5 cm right ovarian cyst OSSEOUS STRUCTURES: Unremarkable. CT/CT abdomen pelvis wo IV con IMPRESSION: Small nonobstructing right renal stone. Mild diffuse bladder wall thickening. Again, correlation with urinalysis recommended. Large gallstone. Bilateral pulmonary nodules. Postsurgical changes to the right middle lobe. comparison with old chest CT scans recommended. Fleischner guidelines were followed.
--- NOTE | ~2023-08-17 | XR_ITS ---
EXAMINATION: XR CHEST CLINICAL INFORMATION: Cough and fever COMPARISON: 07/28/20 and 07/19/2023 TECHNIQUE: 2 views of the chest were obtained. FINDINGS: Heart size within normal limits. Anastomotic suture lines are again identified in the right hilum extending to the periphery of the mid lung. Ill-defined right hilar soft tissue density is unchanged. No vascular congestion. No consolidations or effusions. Bony structures are intact. XR/XR chest 2V IMPRESSION: No significant change post operative right hemithorax.
[2023-08-17 09:59] VITALS: BP 125/88; PULSE 91; RESP 16; TEMP 36.5; O2SAT 99; BMI 21.2
[2023-08-17 10:52] LABS: MANUAL DIFF FLAG NO
[2023-08-17 10:55] LABS: Appearance Urine Clear; Color Urine Yellow; Glucose Urine UA Negative (Negative); Leukocyte Esterase Urine Small (1+) (Negative); Nitrite Urine Negative (Negative); UMIC TRIGGER UACC YES; Urine Blood Negative (Negative); Urine Ketones Negative (Negative); Urine Protein Negative (Neg-Trace)
[2023-08-17 11:00] LABS: Bacteria Urine None Seen (None Seen); Hyaline Casts Urine 0-2 /LPF (0-2); RBC Urine 0-2 /HPF (0-2); UACC Culture Trigger YES
[2023-08-17 11:01] LABS: Basophils Percent Auto 0.7 % (0-2); Eosinophils Percent Auto 0.7 % (0-4); Hematocrit 30.6 % (37.0-47.0); Hemoglobin 10.1 g/dl (12.0-16.0); Imm Gran Abs Auto 0.02 X10*3/uL (0.00-0.03); Imm Gran Pct Auto 0.4 % (0.0-0.4); Lymphocytes Absolute Auto 1.4 X10*3/uL (1.2-4.9); Lymphocytes Percent Auto 24.6 % (20-40); Mean Corpuscular Hemoglobin 28.8 pg (27.0-33.0); Mean Corpuscular Volume 87.2 fL (80.0-98.0); Mean Platelet Volume 9.4 fL (9.4-12.3); Monocytes Absolute Auto 0.3 X10*3/uL (0.1-1.2); Monocytes Percent Auto 5.9 % (2-11); Neutrophils Absolute Auto 3.8 x10*3/uL (2.0-8.3); Neutrophils Percent Auto 67.7 % (45-73); Platelet Count 299 X10*3/uL (160-400); Red Blood Count 3.51 X10*6/uL (4.20-5.50); Red Cell Distribution Width 14.1 % (11.0-16.0); White Blood Count 5.6 X10*3/uL (4.8-10.8)
[2023-08-17 11:11] LABS: Alanine Aminotransferase 7 U/L (0-31); Albumin Level 3.5 g/dL (3.5-5.0); Alkaline Phosphatase 69 U/L (39-117); Anion Gap 10 (12-20); Aspartate Amino Transferase 15 U/L (5-31); Bilirubin Total 0.3 mg/dL (0.0-1.0); Blood Urea Nitrogen 12 mg/dL (9-16); Calcium 8.8 mg/dL (8.4-10.2); Carbon Dioxide 24 mmol/L (22-29); Chloride 109 mmol/L (96-108); Estimated Glomerular Filt Rate > 60; Glucose Random 102 mg/dL (60-115); Potassium 2.8 mmol/L (3.3-5.1); Sodium 140 mmol/L (135-145); Total Protein 6.6 g/dL (6.5-8.0)
--- NOTE | 2023-08-17 11:26 | ED_ITS ---
HPI - General Adult General Chief complaint: General Medical Stated complaint: fever, headache, diharea? 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 States the flank pain is radiating around to right lower abdomen. She also reports 2 episodes of vomiting yesterday, denies any diarrhea or constipation. Denies current nausea. Has been able to tolerate fluids today. Reports pedal edema has improved since discharge but feels it is returning. States she has been taking her regular medications as prescribed. States that she had an appointment with client support consultant the day before yesterday and was advised to follow-up with Urology. MD complaint: flank pain, fever Onset (ago): day(s) Location: right (flank) Radiation: abdomen Severity: moderate Quality: aching Pain Consistency: constant Relieving factors: none Exacerbating factors: other (palpation) Associated symptoms: cough, fever/chills, headaches and nausea/vomiting Treatments prior to arrival: none Related Data Home Medications Medication Instructions Recorded Confirmed aripiprazole 5 mg tablet 5 mg PO DAILY 07/18/23 07/18/23 clonazepam 1 mg tablet 1 mg PO BID 07/18/23 07/18/23 Previous Rx's Medication Instructions Recorded cefuroxime axetil 500 mg tablet 500 mg PO Q12H #8 tabs 07/24/23 potassium chloride 20 mEq 20 meq PO BID #60 tabs 07/24/23 tablet,extended release prednisone 5 mg tablet See Rx Instructions .Route 07/24/23 .COMPLEX #26 tabs cefuroxime axetil 250 mg tablet 250 mg PO BID #8 tabs 07/28/23 furosemide 20 mg tablet (Lasix) 20 mg PO DAILY #7 tabs 07/28/23 potassium chloride 20 mEq 40 meq (2 x 20 mEq) PO DAILY #20 07/28/23 tablet,extended release tabs spironolactone 25 mg tablet 25 mg PO DAILY #7 tabs 07/28/23 (Aldactone) albuterol sulfate 90 mcg/actuation 2 puff inhalation Q4-6H PRN 07/30/23 aerosol inhaler (ProAir HFA) shortness of breath or wheezing #8.5 grams codeine 10 mg-guaifenesin 100 mg/5 10 ml PO Q6H PRN cough #237 mL 07/30/23 mL oral liquid nirmatrelvir 300 mg (150 mg See Rx Instructions PO .COMPLEX 07/30/23 x2)-ritonavir 100 mg tablet,dose #30 ea pack (Paxlovid) ondansetron 4 mg disintegrating 4 mg PO Q8H PRN nausea and 08/17/23 tablet vomiting #10 tabs Allergies Allergy/AdvReac Type Severity Reaction Status Date / Time zolpidem [From Ambien] Allergy Difficulty Verified 08/17/23 09:58 Breathing iodine AdvReac Rash Verified 08/17/23 09:58 Review of Systems 2 Review of Systems: As per HPI. Yes all other systems are reviewed and are negative Constitutional: Constitutional: Reports as per HPI [facility] Past Medical History Medical History Asthma Chronic lung disease Social History Social History Household Members: None Housing: Apartment Do you presently have visiting nurse or other home services: No Alcohol intake: current Alcohol intake frequency: holidays/special occasions only Patient Tobacco Use Status: Current everyday Tobacco user Tobacco use type: Cigarette Cigarettes Per Day: 8 Smoked in Last 30 Days: Yes e-Cigarette/Vaping Use: Currently Using Second Hand Smoke Exposure: No Use of substances other than those prescribed or required for medical reasons: No Substance Use Type: Marijuana Advance Directives: No Advance Directives Information Provided: Yes Patient : No service: No Physical Exam ED Vital Signs: Vital Signs - 24 hr 08/17/23 09:59 08/17/23 14:14 Temperature 97.7 F Pulse Rate 91 76 Respiratory Rate 16 18 Blood Pressure 125/88 117/68 Pulse Oximetry 99 99 Oxygen Delivery Method Room Air Room Air BMI result Body Mass Index 21.2 Vital signs have been reviewed and appear to be correct. Blood pressure normal. Heart rate normal. Respiratory rate normal. Temperature normal. Oxygen saturation normal. Const General: cooperative, healthy appearing and no acute distress Orientation/consciousness: oriented to person, oriented to place, oriented to time and patient oriented x3 Limitations: no limitations HENMT Head: Yes normocephalic and Yes atraumatic Ears: external ears normal General nose exam: Normal external nose present Face and sinus: Yes face symmetric Mouth: oropharynx normal and moist mucous membranes Throat: Yes uvula midline Eyes Pupils: Equal, round and reactive pupils present Neck Neck: Yes normal visual inspection and Yes supple Resp Effort & Inspection: normal respiratory effort and able to speak in complete sentences Auscultation: clear to auscultation bilaterally Cardio Rate: regular rate Rhythm: regular rhythm Heart sounds: S1 normal heart sound present and S2 normal heart sound present GI Palpation (GI): Soft to palpation and nontender Auscultation: normoactive bowel sounds General: Yes CVA tenderness on the right Back/Spine/Pelvis Back: CVA tenderness Skin General skin exam: elasticity normal and turgor normal Neuro General: oriented to person, oriented to place, oriented to time, patient oriented x3, moves all extremities, no focal motor deficits and CN's II-XI intact bilaterally Cranial nerves: Yes Equal, round and reactive pupils present Cognition (Neuro): normal cognition Extrem General: Yes full ROM, Yes no calf tenderness and Yes edema (mild non-pitting edema bilaterally) Psych Mental Status: mental status grossly normal Affect: normal affect Thought process: Normal thought process present Medications Administered Discontinued Medications Generic Name Dose Route Start Last Admin Trade Name Freq PRN Reason Stop Dose Admin Acetaminophen 650 mg 08/17/23 11:27 08/17/23 14:02 Acetaminophen 325 Mg Tablet PO 08/17/23 11:28 650 mg ONCE ONE Administration Potassium Chloride 20 meq 08/17/23 13:04 08/17/23 14:03 Potassium Chloride Er 20 Meq Tab.Er.Prt PO 08/17/23 13:05 20 meq ONCE ONE Administration Medical Decision Making Medical Decision Making [facility] Narrative: Patient is a 37-year-old [place]yan-speaking female with history of ILD on chronic steroids, asthma, recent admission for OUSMANE, hypokalemia, ATN, and UTI presenting to the emergency department with complaint of headache, fever, dysuria, and right flank pain for the past 2 days. On exam patient is awake, A+Ox3, VS WNL, afebrile, normal neurological exam without focal deficits, physical exam findings as above. Given reported symptoms and physical exam findings, initial differential includes UTI, renal/ureteral calculi, OUSMANE, Covid, flu, strep, pneumonia. Labs notable for leukocytosis, mild anemia improved from recent, hypokalemia, no other significant electrolyte abnormalities, negative hCG. Will replace potassium. UA shows 1+ leukocytes with no bacteria, no blood or proteinuria. X-ray chest notable for no evidence of pneumonia. My interpretation is in agreement with the radiologist's interpretation. Swab for flu, strep, and COVID all negative. Will obtain CT abdomen/pelvis to asses for calculi. No evidence of obstructing calculi on CT. Feel patient is stable for discharge home with urology follow up outpatient. Will prescribe Zofran for nausea, advised alternating Tylenol and ibuprofen as needed for pain or fever. Will refer to Urology for further evaluation of symptoms. Return precautions discussed at bedside. Patient verbalized understanding of and agreement with plan. Differential Diagnosis Differential Diagnoses: The differential diagnosis associated with the presentation includes As per [facility]. Admission/Observation Consideration of admission/observation: Escalation of care including admission/observation considered Lab Data [facility] Lab Attestation statement: I reviewed the patient's lab results. As per MDM. 08/17/23 10:45 08/17/23 10:45 Labs: Lab Results 08/17/23 08/17/23 08/17/23 Range/Units 10:45 11:33 11:34 WBC 5.6 (4.8-10.8) X10*3/uL RBC 3.51 L (4.20-5.50) X10*6/uL Hgb 10.1 L (12.0-16.0) g/dl Hct 30.6 L (37.0-47.0) % MCV 87.2 (80.0-98.0) fL MCH 28.8 (27.0-33.0) pg MCHC 33.0 (31.0-35.0) g/dl RDW 14.1 (11.0-16.0) % Plt Count 299 (160-400) X10*3/uL MPV 9.4 (9.4-12.3) fL Immature Gran % (Auto) 0.4 (0.0-0.4) % Neut % (Auto) 67.7 (45-73) % Lymph % (Auto) 24.6 (20-40) % [place] % (Auto) 5.9 (2-11) % Eos % (Auto) 0.7 (0-4) % Baso % (Auto) 0.7 (0-2) % Lymph # (Auto) 1.4 (1.2-4.9) X10*3/uL [place] # (Auto) 0.3 (0.1-1.2) X10*3/uL Eos # (Auto) 0.0 (0.0-0.4) X10*3/uL Baso # (Auto) 0.0 (0.0-0.2) X10*3/uL Abs Immat Gran (auto) 0.02 (0.00-0.03) X10*3/uL Absolute Neuts (auto) 3.8 (2.0-8.3) x10*3/uL Absolute Nucleated RBC 0.000 (0.0-0.012) X10*3/uL Nucleated RBC % (auto) 0.0 (0.0-0.2) /100WBC Sodium 140 (135-145) mmol/L Potassium 2.8 L D (3.3-5.1) mmol/L Chloride 109 H (96-108) mmol/L Carbon Dioxide 24 (22-29) mmol/L Anion Gap 10 L (12-20) BUN 12 (9-16) mg/dL Creatinine 0.64 (0.5-1.4) mg/dL Estim Creat Clear Calc 74.0 Estimated GFR > 60 Random Glucose 102 (60-115) mg/dL Calcium 8.8 D (8.4-10.2) mg/dL Magnesium 1.6 (1.6-2.6) mg/dL Total Bilirubin 0.3 (0.0-1.0) mg/dL AST 15 (5-31) U/L ALT 7 (0-31) U/L Alkaline Phosphatase 69 (39-117) U/L Total Protein 6.6 (6.5-8.0) g/dL Albumin 3.5 (3.5-5.0) g/dL Urine Color Yellow Urine Appearance Clear Urine pH 7.0 (5.0-9.0) Ur Specific [place] 1.010 (1.005-1.025) Urine Protein Negative (Neg-Trace) mg/dL Urine Glucose (UA) Negative (Negative) mg/dL Urine Ketones Negative (Negative) mg/dL Urine Blood Negative (Negative) Urine Nitrite Negative (Negative) Ur Leukocyte Esterase Small (1+) H (Negative) Urine RBC 0-2 (0-2) /HPF Urine WBC 11-20 H (0-5) /HPF Ur Squamous Epith Cells 3-5 (0-2) /HPF Urine Bacteria None Seen (None Seen) Hyaline Casts 0-2 (0-2) /LPF Urine Test NEGATIVE (NEGATIVE) COVID-19 (LATOSHA) Negative (Negative) COVID-19 Clin Com See Note Influenza Type A (CAS) (Negative) Influenza Type B (CAS) (Negative) Influenza A & B Note S. pyogenes GrpA CAS Negative (Negative) 08/17/23 Range/Units 11:35 WBC (4.8-10.8) X10*3/uL RBC (4.20-5.50) X10*6/uL Hgb (12.0-16.0) g/dl Hct (37.0-47.0) % MCV (80.0-98.0) fL MCH (27.0-33.0) pg MCHC (31.0-35.0) g/dl RDW (11.0-16.0) % Plt Count (160-400) X10*3/uL MPV (9.4-12.3) fL Immature Gran % (Auto) (0.0-0.4) % Neut % (Auto) (45-73) % Lymph % (Auto) (20-40) % [place] % (Auto) (2-11) % Eos % (Auto) (0-4) % Baso % (Auto) (0-2) % Lymph # (Auto) (1.2-4.9) X10*3/uL [place] # (Auto) (0.1-1.2) X10*3/uL Eos # (Auto) (0.0-0.4) X10*3/uL Baso # (Auto) (0.0-0.2) X10*3/uL Abs Immat Gran (auto) (0.00-0.03) X10*3/uL Absolute Neuts (auto) (2.0-8.3) x10*3/uL Absolute Nucleated RBC (0.0-0.012) X10*3/uL Nucleated RBC % (auto) (0.0-0.2) /100WBC Sodium (135-145) mmol/L Potassium (3.3-5.1) mmol/L Chloride (96-108) mmol/L Carbon Dioxide (22-29) mmol/L Anion Gap (12-20) BUN (9-16) mg/dL Creatinine (0.5-1.4) mg/dL Estim Creat Clear Calc Estimated GFR Random Glucose (60-115) mg/dL Calcium (8.4-10.2) mg/dL Magnesium (1.6-2.6) mg/dL Total Bilirubin (0.0-1.0) mg/dL AST (5-31) U/L ALT (0-31) U/L Alkaline Phosphatase (39-117) U/L Total Protein (6.5-8.0) g/dL Albumin (3.5-5.0) g/dL Urine Color Urine Appearance Urine pH (5.0-9.0) Ur Specific [place] (1.005-1.025) Urine Protein (Neg-Trace) mg/dL Urine Glucose (UA) (Negative) mg/dL Urine Ketones (Negative) mg/dL Urine Blood (Negative) Urine Nitrite (Negative) Ur Leukocyte Esterase (Negative) Urine RBC (0-2) /HPF Urine WBC (0-5) /HPF Ur Squamous Epith Cells (0-2) /HPF Urine Bacteria (None Seen) Hyaline Casts (0-2) /LPF Urine Test (NEGATIVE) COVID-19 (LATOSHA) (Negative) COVID-19 Clin Com Influenza Type A (CAS) Negative (Negative) Influenza Type B (CAS) Negative (Negative) Influenza A & B Note See Note S. pyogenes GrpA CAS (Negative) Independent Interpretation I performed an independent interpretation of an: Plain X-Ray and CT Scan Interpretation: No evidence of obstructing calculi, no evidence of pneumonia on chest x-ray Radiology Impression Discussion of test interpretation with radiology: I have reviewed the radiologist's reading. Radiologist Impression: CT/CT abdomen pelvis wo IV con IMPRESSION: Small nonobstructing right renal stone. Mild diffuse bladder wall thickening. Again, correlation with urinalysis recommended. Large gallstone. Bilateral pulmonary nodules. Postsurgical changes to the right middle lobe. comparison with old chest CT scans recommended. Fleischner guidelines were followed. XR/XR chest 2V IMPRESSION: No significant change post operative right hemithorax. External Record Review External record reviewed: Inpatient record, Office record and Outpatient record Prescription Management I considered prescription management with: Other Discharge Plan Discharge Clinical Impression: Right flank pain Patient Disposition: Home, Self-Care Instructions: Abdominal Pain (ED), Flank Pain (ED) Additional Instructions: Hoy lo evaluaron en el departamento de emergencias por dolor en el flanco. Stevens evaluaci?n no mostr? evidencia de condiciones que requieran tratamiento m?dico de emergencia en lexie momento. Stevens orina no mostr? evidencia de infecci?n. Lo derivan a urolog?a para sonam evaluaci?n m?s detallada de hanna s?ntomas. Le recetan ondansetr?n, que puede utilizar cada 8 horas seg?n sea necesario para las n?useas. Puede usar 400 mg de ibuprofeno o 650 mg de Tylenol cada 6 horas seg?n sea necesario para el dolor o la fiebre. Si es necesario, puedes alternar estos medicamentos cada 3 horas. Por ejemplo, al mediod?a nivia Tylenol, luego a las 15:00 horas. adriana ibuprofeno, luego a las 6:00 p.m. adriana Tylenol. Debe realizar un seguimiento con stevens proveedor de atenci?n primaria esta semana. Regrese al departamento de emergencias si presenta un dolor que empeora, v?mitos persistentes, fiebre que no mejora con Tylenol o ibuprofeno, dificultad para orinar o cualquier otro s?ntoma preocupante. Prescriptions: New ondansetron 4 mg tablet,disintegrating 4 mg PO Q8H PRN (Reason: nausea and vomiting) Qty: 10 0RF No Action furosemide [Lasix] 20 mg tablet 20 mg PO DAILY Qty: 7 0RF spironolactone [Aldactone] 25 mg tablet 25 mg PO DAILY Qty: 7 0RF potassium chloride 20 mEq tablet extended release 40 meq PO DAILY Qty: 20 0RF cefuroxime axetil 250 mg tablet 250 mg PO BID Qty: 8 0RF Paxlovid 300 mg (150 mg x 2)-100 mg tablets,dose pack See Rx Instructions .ROUTE .COMPLEX Qty: 30 0RF Rx Instructions: take TWO 150 mg tablets of nirmatrelvir with ONE 100 mg tablet of ritonavir twice daily for 5 days codeine-guaifenesin 10-100 mg/5 mL liquid 10 ml PO Q6H PRN (Reason: cough) Qty: 237 0RF albuterol sulfate [ProAir HFA] 90 mcg/actuation HFA aerosol inhaler 2 puff inhalation Q4-6H PRN (Reason: shortness of breath or wheezing) Qty: 8.5 0RF clonazepam 1 mg tablet 1 mg PO BID aripiprazole 5 mg tablet 5 mg PO DAILY cefuroxime axetil 500 mg Tablet 500 mg PO Q12H Qty: 8 0RF prednisone 5 mg tablet See Rx Instructions .ROUTE .COMPLEX Qty: 26 0RF Rx Instructions: 3 tabs (15 mg) daily for 4 days, then 2 tabs (10 mg) daily for 4 days, then 1 tab (5 mg) daily for 4 days, then half tab (2.5 mg) daily for 4 days potassium chloride 20 mEq tablet extended release 20 meq PO BID Qty: 60 0RF Referrals: [facility] [Provider Group] Print Language: Libyan
[2023-08-17 11:34] LABS: Magnesium 1.6 mg/dL (1.6-2.6)
--- NOTE | 2023-08-17 11:39 | PC.NURSE ---
assumed care of pt at this time covid, strep, and flu swabs sent to lab.
[2023-08-17 11:44] LABS: UPreg QC Valid YES
[2023-08-17 11:47] LABS: Urine Pregnancy NEGATIVE (NEGATIVE)
[2023-08-17 11:56] LABS: IDNOW Serial# 08D9AD1C
[2023-08-17 11:57] LABS: IDNOW Serial# 9DB6401D; Influenza A Negative (Negative); Influenza B2 Negative (Negative)
[2023-08-17 11:57] LABS: Strep A Nucleic Acid Negative (Negative)
[2023-08-17 11:57] LABS: COVID-19 Test Negative (Negative); IDNOW Serial# BCCEAD1C
[2023-08-17] MEDS: Acetaminophen 325 MG TABLET 650 MG PO (14:02)
[2023-08-17] MEDS: Potassium Chloride ER 20 MEQ TAB.ER.PRT PO (14:03)
[2023-08-17 14:14] VITALS: BP 117/68; PULSE 76; RESP 18; O2SAT 99
== END 2023-08-17 16:18 | disposition home or self-care (01) ==
PROVIDERS: Registered Nurse Emergency; Emergency Provider Emergency Medicine
DX: R10.2 Pelvic and perineal pain (principal); R50.9 Fever, unspecified; R11.2 Nausea with vomiting, unspecified; R00.2 Palpitations; F17.210 Nicotine dependence, cigarettes, uncomplicated; Z11.52 Encounter for screening for COVID-19; Z20.822 Contact with and (suspected) exposure to COVID-19; Z71.6 Tobacco abuse counseling; Z79.899 Other long term (current) drug therapy
CPT/HCPCS: 36415; 71046; 74176; 80053; 81001; 81025; 83735; 85025; 87086; 87502; 87635; 87651; 99284

== ENCOUNTER 2023-08-27 12:27 | Outpatient (REF) | payer OTHER, SELFPAY ==
[2023-08-27 13:51] LABS: Appearance Urine Cloudy; Color Urine Yellow; Glucose Urine UA Negative (Negative); Leukocyte Esterase Urine Moderate (2+) (Negative); Nitrite Urine Negative (Negative); PH 7.5 (5.0-9.0); Specific Gravity - Urine 1.015 (1.005-1.025); UMIC TRIGGER UA YES; Urine Blood Negative (Negative); Urine Ketones Negative (Negative); Urine Protein Trace mg/dL (Neg-Trace)
[2023-08-27 13:54] LABS: Bacteria Urine 4+ (None Seen); Hyaline Casts Urine 0-2 /LPF (0-2); RBC Urine 0-2 /HPF (0-2); WBC Urine >50 /HPF (0-5)
[2023-08-27 14:38] LABS: Anion Gap 9 (12-20); Blood Urea Nitrogen 12 mg/dL (9-16); Calcium 9.3 mg/dL (8.4-10.2); Carbon Dioxide 29 mmol/L (22-29); Chloride 104 mmol/L (96-108); Estimated Glomerular Filt Rate > 60; Potassium 2.7 mmol/L (3.3-5.1); Sodium 139 mmol/L (135-145)
[2023-08-27 14:48] LABS: Creatinine Urine 72.59 mg/dL; Protein/Creatinine Ratio, Ur 0.29 (<0.2); Total Protein Urine Random 21 mg/dL (<12)
[2023-08-29 12:04] LABS: Complement C3 132 mg/dL (83-193)
== END 2023-08-27 12:28 | disposition home or self-care (01) ==
LOC: HO.LAB 12:27
PROVIDERS: Visit Provider Student in an Organized Health Care Education/Training Program
DX: N17.9 Acute kidney failure, unspecified (principal); N39.0 Urinary tract infection, site not specified; B96.20 Unspecified Escherichia coli [E. coli] as the cause of diseases classified elsewhere
CPT/HCPCS: 36415; 80051; 81001; 82310; 82565; 82570; 84156; 84520; 86160

== ENCOUNTER 2023-09-18 15:03 | Outpatient (REF) | payer OTHER, SELFPAY ==
[2023-09-18 16:52] LABS: Anion Gap 15 (12-20); Blood Urea Nitrogen 11 mg/dL (9-16); Carbon Dioxide 26 mmol/L (22-29); Chloride 107 mmol/L (96-108); Estimated Glomerular Filt Rate > 60; Potassium 3.1 mmol/L (3.3-5.1); Sodium 145 mmol/L (135-145)
== END 2023-09-18 15:04 | disposition home or self-care (01) ==
LOC: HO.LAB 15:03
PROVIDERS: Visit Provider Internal Medicine Nephrology
DX: E87.6 Hypokalemia (principal)
CPT/HCPCS: 36415; 80051; 82310; 82565; 84520

== ENCOUNTER 2023-10-18 11:31 | Inpatient (IN) | payer OTHER, SELFPAY ==
[2023-10-18] VITALS (7 sets, daily range): BP systolic 91–111; BP diastolic 56–75; PULSE 64–99; RESP 14–26; TEMP 36.6; O2SAT 97–99; BMI 19.1
--- NOTE | ~2023-10-18 | CT_ITS ---
EXAMINATION: CT ABDOMEN AND PELVIS WITH CONTRAST CLINICAL INFORMATION: Worsening of abdominal and right flank pain COMPARISON: 10/18/2023 TECHNIQUE: Multidetector volumetric images were obtained from the superior aspect of the liver through the pubic symphysis following administration 85 mL of Omnipaque 350 intravenous contrast. Sagittal and coronal reformatted images were obtained on the technologist's workstation. Oral contrast: No This CT examination was performed using dose optimization techniques as appropriate, variously including the following: *Automated exposure control *Adjustment of mA and/or kV according to patient size (this includes techniques or standardized protocols for targeted exams where dose is matched to indication/reason for exam; i.e. extremities or head) *Use of iterative reconstruction technique DLP: 293 mGy-cm FINDINGS: LUNG BASES: The visualized lung bases are unremarkable. LIVER, GALLBLADDER, AND BILIARY TREE: The liver is normal in size, shape, and attenuation. No focal hepatic lesion or biliary ductal dilatation is present. There is laminated gallstone in the same position as on the previous study. No evidence of cholecystitis. PANCREAS: Unremarkable. SPLEEN: Unremarkable. ADRENAL GLANDS: Unremarkable. KIDNEYS AND URETERS: The kidneys are normal in size, shape, and attenuation. No hydronephrosis, hydroureter, or calculi seen. No perinephric stranding. BLADDER: Unremarkable. GASTROINTESTINAL TRACT: The small and large bowel are unremarkable. The appendix is unremarkable, seen on image 25/58. ABDOMINAL WALL: No significant hernia is appreciated. LYMPH NODES: Normal. VASCULAR: Unremarkable. PELVIC VISCERA: There is small amount of fluid in cul-de-sac, most likely physiologic. No obvious cysts identified in the adnexa. If clinically indicated follow-up by pelvic ultrasound. OSSEOUS STRUCTURES: Unremarkable. CT/CT abdomen pelvis w IV con IMPRESSION: 1. Cholelithiasis without cholecystitis. 2. Small amount of fluid in the cul-de-sac, most likely physiologic. If clinically indicated follow-up by pelvic ultrasound. Fleischner guidelines were followed.
--- NOTE | ~2023-10-18 | CT_ITS ---
EXAMINATION: CT ABDOMEN AND PELVIS WITHOUT CONTRAST CLINICAL INFORMATION: Right flank pain. COMPARISON: 08/17/2023 TECHNIQUE: Multidetector volumetric imaging was performed from the superior aspect of the liver through the pubic symphysis. Sagittal and coronal reformatted images were obtained on the technologist's workstation. This CT examination was performed using dose optimization techniques as appropriate, variously including the following: *Automated exposure control *Adjustment of mA and/or kV according to patient size (this includes techniques or standardized protocols for targeted exams where dose is matched to indication/reason for exam; i.e. extremities or head) *Use of iterative reconstruction technique DLP: 245 mGy-cm FINDINGS: LUNG BASES: No pleural or pericardial effusion. LIVER, GALLBLADDER, AND BILIARY TREE: The noncontrast liver is normal in size and contour. No biliary ductal dilatation is present. Gallstone. PANCREAS: Unremarkable. SPLEEN: Unremarkable. ADRENAL GLANDS: Unremarkable. KIDNEYS AND URETERS: The kidneys are normal in size, shape, and attenuation. 2 mm nonobstructing calculus midpole right kidney. No hydronephrosis or perinephric stranding. BLADDER: Circumferential wall thickening similar to previous. GASTROINTESTINAL TRACT: No small bowel obstruction. Constipation. ABDOMINAL WALL: No significant hernia is appreciated. LYMPH NODES: Subcentimeter mesenteric lymph nodes. VASCULAR: Normal caliber abdominal aorta. PELVIC VISCERA: Unremarkable. OSSEOUS STRUCTURES: No destructive bone lesions. CT/CT abdomen pelvis wo IV con IMPRESSION: No acute abnormality in the abdomen or pelvis.
--- NOTE | 2023-10-18 12:11 | ED.ABDPAIN ---
HPI - Abdominal Pain General Chief Complaint: Urogenital-Female Stated Complaint: abd pain Time Seen by Provider: 10/18/23 15:25 Source: patient Mode of arrival: ambulatory Limitations: no limitations History of Present Illness HPI narrative: 37 year old female hx of thrombocytopenia, UTIs, kidney stones, ILD, asthma presents to the ED w/ right sided lower quadrant pain that radiates to the groin w/ right sided flank pain X 2-3 days worsening. Patient has alos noted blood in urine the past few days. Patient not on blood thinners. Denies fevers, chills, cp, sob, n/v/d Related Data Home Medications Medication Instructions Recorded Confirmed aripiprazole 5 mg tablet 5 mg PO DAILY 07/18/23 07/18/23 clonazepam 1 mg tablet 1 mg PO BID 07/18/23 07/18/23 Previous Rx's Medication Instructions Recorded cefuroxime axetil 500 mg tablet 500 mg PO Q12H #8 tabs 07/24/23 potassium chloride 20 mEq 20 meq PO BID #60 tabs 07/24/23 tablet,extended release prednisone 5 mg tablet See Rx Instructions .Route 07/24/23 .COMPLEX #26 tabs cefuroxime axetil 250 mg tablet 250 mg PO BID #8 tabs 07/28/23 furosemide 20 mg tablet (Lasix) 20 mg PO DAILY #7 tabs 07/28/23 potassium chloride 20 mEq 40 meq (2 x 20 mEq) PO DAILY #20 07/28/23 tablet,extended release tabs spironolactone 25 mg tablet 25 mg PO DAILY #7 tabs 07/28/23 (Aldactone) albuterol sulfate 90 mcg/actuation 2 puff inhalation Q4-6H PRN 07/30/23 aerosol inhaler (ProAir HFA) shortness of breath or wheezing #8.5 grams codeine 10 mg-guaifenesin 100 mg/5 10 ml PO Q6H PRN cough #237 mL 07/30/23 mL oral liquid nirmatrelvir 300 mg (150 mg See Rx Instructions PO .COMPLEX 07/30/23 x2)-ritonavir 100 mg tablet,dose #30 ea pack (Paxlovid) ondansetron 4 mg disintegrating 4 mg PO Q8H PRN nausea and 08/17/23 tablet vomiting #10 tabs Allergies Allergy/AdvReac Type Severity Reaction Status Date / Time zolpidem [From Ambien] Allergy Difficulty Verified 10/18/23 12:10 Breathing iodine AdvReac Rash Verified 10/18/23 12:10 Review of Systems Review of Systems Constitutional : No Weight loss, No Fever, No Chills, No Fatigue, No Malaise ENT/Mouth : No sore throat, No Rhinorrhea Eyes: No Eye Pain, No Swelling, No Redness Cardiovascular : No Chest Pain, No SOB, No Dyspnea on Exertion, No Orthopnea, No Edema, No Palpitations Respiratory : No Cough, No Sputum, No Wheezing Gastrointestinal : No Nausea, No Vomiting, No Diarrhea, No Constipation, + abdominal Pain, No Hematochezia, No Melena Genitourinary : No Dysuria, No Urinary Frequency, No Hematuria, Musculoskeletal : No joint pain, No Myalgias, No Joint Swelling Skin : No Skin Lesions, No rash Neuro : No Weakness, No Numbness, No Dizziness, No Headache Psych : No Anxiety/Panic, No Depression All other systems reviewed and are negative Yes all other systems are reviewed and are negative [facility] Past Medical History Attestation statement: The following information was validated with the patient. Source: old records reviewed and nursing notes reviewed Onset Date is defined in the Problem List Problems that require an onset date and time if occurred within 24 hrs of arrival to the ED Aortic Dissection and Rupture; Neurologic impairment; Cardiopulmonary Arrest; Endotracheal Intubation; Insertion or Replacement of Mechanical Circulatory Assist Device Medical History Asthma Chronic lung disease Social History Social History Household Members: None Housing: Apartment Do you presently have visiting nurse or other home services: No Alcohol intake: current Alcohol intake frequency: holidays/special occasions only Patient Tobacco Use Status: Current everyday Tobacco user Tobacco use type: Cigarette Cigarettes Per Day: 8 e-Cigarette/Vaping Use: Currently Using Second Hand Smoke Exposure: No Substance Use Type: Marijuana Advance Directives: No Advance Directives Information Provided: Yes service: No Physical Exam ED Vital Signs: Vital Signs - 24 hr 10/18/23 12:10 10/18/23 17:28 Temperature 98 F Pulse Rate 99 91 Respiratory Rate 19 20 Blood Pressure 103/68 105/57 L Pulse Oximetry 98 97 Oxygen Delivery Method Room Air BMI result Body Mass Index 19.1 vss Appearance: Alert.? Oriented X3.? No acute distress.? Head: Normocephalic, atraumatic, no step-offs or deformities Eyes: Pupils equal, round and reactive to light.? CVS: Normal heart rate and rhythm.? Pulses normal.? Respiratory: No respiratory distress.? Breath sounds normal.? Abdomen: Soft and + RLQ tenderness .? Skin: Skin warm and dry.? Normal skin color.? Normal skin turgor.? Extremities: No lower extremity edema.? No calf ttp. 5/5 strength to bilateral upper and lower extremities Back: No midline tenderness, no C-spine tenderness, full range of motion, + CVA tenderness to R side, negative on left Neuro: Oriented X 3.? No motor deficit.? No sensory deficit. CN 2-12 intact Course Course Course Narrative: 4 day history of right abdominal pain radiating into right groin. Noted blood in her urine over the past few days. Admitted with sepsis in July for 'kidney issues'. Denies fevers, chills, SOB, CP Hx: kidney stones RME: A&Ox4, MAEx4, LS CTA, HR RRR, Rt CVAT RME completed by Tarun 1510: critical K2.1 Reevaluation(s) Reevaluation #1: Patients CBC unremarkable, making pylonephritis less likely. Chemistry w/ low K 2.1 ( patients baseline is around 3.0) will repleat at this time. low suspicion for medicaiton induced hypokalemia. UA w/ infection 4+ bacteria and leukocyte esterase and RBCs --> blood cultures, lactic, fluids and ceftriaxone ordered. BMP will need to be repeated to look at patients K. To note on med review patient has lasix listed this is not something she is on regularly, she was on this before for a stone but not taking now. Time: 15:39 Reevaluation #2: To note was admitted on July 18 to 07/24/2023 for acute kidney injury secondary to multifactorial acute tubular necrosis. Time: 17:08 Reevaluation #3: Repeat chemistry with even lower potassium 2.0, random glucose of 59. I did give patient or in shoes, glucose gel repeat point of care ordered. TSH also ordered in addition to this. Plan is for hospital admission. Although patient does have low glucose and low blood pressure I do not suspect myxedema coma. Time: 18:24 Additional Reevaluation(s): Plan- hospital admission Medical Decision Making Medical Decision Making [facility] Narrative: 37 year old female presents w R sided falnk pain, RLQ pain and hematuria X few days. Hx of stones PE w/ + R sided CVA tenderness. Hx and pE concerning for kidney stone vs pylo vs obstructing uropathy. Will rule out metabolic issues and UTI. Unlikely sepsi at this time. Unlikely ectopic/ torsion. Will r/o appendicitis. Unlikely acute abdomen, diverticulitis, obstruction, cholecystitis, pancreatitis Plan- labs, imaging, urine. Differential Diagnosis Differential Diagnoses: The differential diagnosis associated with the presentation includes Hx and pE concerning for kidney stone vs pylo vs obstructing uropathy. Will rule out metabolic issues and UTI. Unlikely sepsi at this time . Unlikely ectopic/ torsion. Will r/o appendicitis. Unlikely acute abdomen, diverticulitis, obstruction, cholecystitis, pancreatitis Admission/Observation Consideration of admission/observation: Escalation of care including admission/observation considered Consult Healthcare Provider Management of the patient was discussed with: Hospitalist and Software Deployment Engineer Lab Data [facility] Lab Attestation statement: I reviewed the patient's lab results. 10/18/23 14:44 10/18/23 17:40 Labs: Lab Results 10/18/23 10/18/23 10/18/23 Range/Units 14:44 14:45 17:40 WBC 4.8 (4.8-10.8) X10*3/uL RBC 4.70 D (4.20-5.50) X10*6/uL Hgb 13.1 D (12.0-16.0) g/dl Hct 38.2 D (37.0-47.0) % MCV 81.3 (80.0-98.0) fL MCH 27.9 (27.0-33.0) pg MCHC 34.3 (31.0-35.0) g/dl RDW 14.0 (11.0-16.0) % Plt Count 230 (160-400) X10*3/uL MPV 9.3 L (9.4-12.3) fL Immature Gran % (Auto) 0.4 (0.0-0.4) % Neut % (Auto) 72.5 (45-73) % Lymph % (Auto) 20.0 (20-40) % [place] % (Auto) 6.7 (2-11) % Eos % (Auto) 0.0 (0-4) % Baso % (Auto) 0.4 (0-2) % Lymph # (Auto) 1.0 L (1.2-4.9) X10*3/uL [place] # (Auto) 0.3 (0.1-1.2) X10*3/uL Eos # (Auto) 0.0 (0.0-0.4) X10*3/uL Baso # (Auto) 0.0 (0.0-0.2) X10*3/uL Abs Immat Gran (auto) 0.02 (0.00-0.03) X10*3/uL Absolute Neuts (auto) 3.5 (2.0-8.3) x10*3/uL Absolute Nucleated RBC 0.000 (0.0-0.012) X10*3/uL Nucleated RBC % (auto) 0.0 (0.0-0.2) /100WBC Sodium 139 141 (135-145) mmol/L Potassium 2.1 L* 2.0 L* (3.3-5.1) mmol/L Chloride 104 114 H (96-108) mmol/L Carbon Dioxide 26 22 (22-29) mmol/L Anion Gap 11 L 7 L (12-20) BUN 12 9 (9-16) mg/dL Creatinine 0.65 0.52 (0.5-1.4) mg/dL Estim Creat Clear Calc 72.8 91.1 Estimated GFR > 60 > 60 Random Glucose 92 59 L* (60-115) mg/dL Lactic Acid 0.9 (0.5-2.0) mmol/L Calcium 8.8 D 7.3 L D (8.4-10.2) mg/dL Phosphorus 2.9 (2.7-4.5) mg/dL Magnesium 2.0 1.7 (1.6-2.6) mg/dL Total Bilirubin 0.7 (0.0-1.0) mg/dL AST 33 H (5-31) U/L ALT 23 (0-31) U/L Alkaline Phosphatase 68 (39-117) U/L Total Protein 7.2 (6.5-8.0) g/dL Albumin 3.8 (3.5-5.0) g/dL Beta HCG, Quant < 2 mIU/mL Urine Color Yellow Urine Appearance Cloudy Urine pH 7.0 (5.0-9.0) Ur Specific [place] 1.015 (1.005-1.025) Urine Protein Trace (Neg-Trace) mg/dL Urine Glucose (UA) Negative (Negative) mg/dL Urine Ketones Negative (Negative) mg/dL Urine Blood Small (1+) H (Negative) Urine Nitrite Negative (Negative) Ur Leukocyte Esterase Large (3+) H (Negative) Urine RBC 0-2 (0-2) /HPF Urine WBC >50 H (0-5) /HPF Ur Squamous Epith Cells 3-5 (0-2) /HPF Urine Bacteria 4+ (None Seen) Hyaline Casts 0-2 (0-2) /LPF Urine Test NEGATIVE (NEGATIVE) Independent Interpretation I performed an independent interpretation of an: CT Scan Radiology Impression Discussion of test interpretation with radiology: I have reviewed the radiologist's reading. External Record Review External record reviewed: Inpatient record, Office record, Outpatient record, Prior outpatient labs, Prior outpatient radiology, Primary care record and Outside ED record Medications Administered Generic Name Dose Route Start Last Admin Trade Name Freq PRN Reason Stop Dose Admin Potassium Chloride 10 meq in 100 mls @ 100 mls/hr 10/18/23 15:30 10/18/23 18:18 Potassium Chloride/H20 IV 10/18/23 19:29 100 mls/hr Q1H CIRO Administration Discontinued Medications Generic Name Dose Route Start Last Admin Trade Name Freq PRN Reason Stop Dose Admin Sodium Chloride 1,000 mls @ 999 mls/hr 10/18/23 15:30 10/18/23 17:10 Ns IV 10/18/23 16:30 999 mls/hr .Q1H1M CIRO Administration Sodium Chloride 1,200 mls @ 1,200 mls/hr 10/18/23 15:37 10/18/23 17:42 Ns 30 ml/kg infuse over 1 hr (1200 ml) 10/18/23 16:36 1,200 mls/hr IV Administration .Q1H STA Ceftriaxone Sodium 1 gm/ 50 mls @ 100 mls/hr 10/18/23 15:37 10/18/23 17:34 Sodium Chloride IV 10/18/23 16:06 100 mls/hr ONCE ONE Administration Ketorolac Tromethamine 30 mg 10/18/23 16:03 10/18/23 17:16 Ketorolac Tromethamine 15 Mg/Ml Vial IVPUSH 10/18/23 16:04 30 mg ONCE ONE Administration Potassium Chloride 40 meq 10/18/23 15:30 10/18/23 17:13 Potassium Chloride Packet 20 Meq Packet PO 10/18/23 15:31 40 meq ONCE ONE Administration Critical Care Time Critical Care Time Critical Care Time: Yes Total Critical Care Time: 45 Attestation: I attest to this time spent taking care of the patient, obtaining history, physical, reviewing labs, imaging, speaking to my attending, speaking to specialist. Discharge Plan Discharge Clinical Impression: UTI (urinary tract infection), Acute hypokalemia Patient Disposition: Admitted As Inpatient Prescriptions: No Action furosemide [Lasix] 20 mg tablet 20 mg PO DAILY Qty: 7 0RF spironolactone [Aldactone] 25 mg tablet 25 mg PO DAILY Qty: 7 0RF potassium chloride 20 mEq tablet extended release 40 meq PO DAILY Qty: 20 0RF cefuroxime axetil 250 mg tablet 250 mg PO BID Qty: 8 0RF Paxlovid 300 mg (150 mg x 2)-100 mg tablets,dose pack See Rx Instructions .ROUTE .COMPLEX Qty: 30 0RF Rx Instructions: take TWO 150 mg tablets of nirmatrelvir with ONE 100 mg tablet of ritonavir twice daily for 5 days codeine-guaifenesin 10-100 mg/5 mL liquid 10 ml PO Q6H PRN (Reason: cough) Qty: 237 0RF albuterol sulfate [ProAir HFA] 90 mcg/actuation HFA aerosol inhaler 2 puff inhalation Q4-6H PRN (Reason: shortness of breath or wheezing) Qty: 8.5 0RF clonazepam 1 mg tablet 1 mg PO BID aripiprazole 5 mg tablet 5 mg PO DAILY cefuroxime axetil 500 mg Tablet 500 mg PO Q12H Qty: 8 0RF prednisone 5 mg tablet See Rx Instructions .ROUTE .COMPLEX Qty: 26 0RF Rx Instructions: 3 tabs (15 mg) daily for 4 days, then 2 tabs (10 mg) daily for 4 days, then 1 tab (5 mg) daily for 4 days, then half tab (2.5 mg) daily for 4 days potassium chloride 20 mEq tablet extended release 20 meq PO BID Qty: 60 0RF ondansetron 4 mg tablet,disintegrating 4 mg PO Q8H PRN (Reason: nausea and vomiting) Qty: 10 0RF
[2023-10-18 14:51] LABS: MANUAL DIFF FLAG NO
[2023-10-18 14:53] LABS: Appearance Urine Cloudy; Color Urine Yellow; Glucose Urine UA Negative (Negative); Leukocyte Esterase Urine Large (3+) (Negative); Nitrite Urine Negative (Negative); Specific Gravity - Urine 1.015 (1.005-1.025); UMIC TRIGGER UACC YES; Urine Blood Small (1+) (Negative); Urine Ketones Negative (Negative); Urine Protein Trace mg/dL (Neg-Trace)
[2023-10-18 14:54] LABS: Basophils Percent Auto 0.4 % (0-2); Hematocrit 38.2 % (37.0-47.0); Hemoglobin 13.1 g/dl (12.0-16.0); Imm Gran Abs Auto 0.02 X10*3/uL (0.00-0.03); Imm Gran Pct Auto 0.4 % (0.0-0.4); Mean Corpuscular HGB Conc 34.3 g/dl (31.0-35.0); Mean Corpuscular Hemoglobin 27.9 pg (27.0-33.0); Mean Corpuscular Volume 81.3 fL (80.0-98.0); Mean Platelet Volume 9.3 fL (9.4-12.3); Monocytes Absolute Auto 0.3 X10*3/uL (0.1-1.2); Monocytes Percent Auto 6.7 % (2-11); Neutrophils Absolute Auto 3.5 x10*3/uL (2.0-8.3); Neutrophils Percent Auto 72.5 % (45-73); Platelet Count 230 X10*3/uL (160-400); White Blood Count 4.8 X10*3/uL (4.8-10.8)
[2023-10-18 14:56] LABS: UPreg QC Valid YES; Urine Pregnancy NEGATIVE (NEGATIVE)
[2023-10-18 15:04] LABS: Lactic Acid 0.9 mmol/L (0.5-2.0)
[2023-10-18 15:09] LABS: Bacteria Urine 4+ (None Seen); Hyaline Casts Urine 0-2 /LPF (0-2); RBC Urine 0-2 /HPF (0-2); UACC Culture Trigger YES; WBC Urine >50 /HPF (0-5)
[2023-10-18 15:10] LABS: Alanine Aminotransferase 23 U/L (0-31); Albumin Level 3.8 g/dL (3.5-5.0); Alkaline Phosphatase 68 U/L (39-117); Anion Gap 11 (12-20); Aspartate Amino Transferase 33 U/L (5-31); Bilirubin Total 0.7 mg/dL (0.0-1.0); Blood Urea Nitrogen 12 mg/dL (9-16); Calcium 8.8 mg/dL (8.4-10.2); Carbon Dioxide 26 mmol/L (22-29); Chloride 104 mmol/L (96-108); Creatinine Clr Calc Pharmacy 72.8; Estimated Glomerular Filt Rate > 60; Glucose Random 92 mg/dL (60-115); Phosphorus 2.9 mg/dL (2.7-4.5); Potassium 2.1 mmol/L (3.3-5.1); Sodium 139 mmol/L (135-145); Total Protein 7.2 g/dL (6.5-8.0)
--- NOTE | 2023-10-18 15:17 | ECG_ITS ---
Test Reason : ABD PAIN Blood Pressure : / mmHG Vent. Rate : 085 BPM Atrial Rate : 085 BPM P-R Int : 138 ms QRS Dur : 088 ms QT Int : 398 ms P-R-T Axes : 036 017 013 degrees QTc Int : 473 ms Normal sinus rhythm Moderate voltage criteria for LVH, may be normal variant ( R in aVL , Sokolow-Rosales ) Nonspecific T wave abnormality Prolonged QT Abnormal ECG When compared with ECG of 29-JUL-2023 22:45, No significant change was found Referred By: Tiffanie Arenas Electronically Signed By:ROSMERY TUCKER MD
[2023-10-18 16:04] LABS: HCG Quantitative < 2 mIU/mL
--- NOTE | 2023-10-18 17:00 | PC.NURSE ---
michael grover aware pt hard blood stick for iv's. multiple rn's tried multiple times. pa ok'd to maintain one iv and to start the antibiotics and then start iv potassium after abx finish; pt given po k as ordered in the meantime.
[2023-10-18] MEDS: 0.9 % Sodium Chloride 1,000 ML 999 ML IV (17:10)
[2023-10-18] MEDS: Potassium Chloride Packet 20 MEQ PACKET 40 MEQ PO (17:13)
--- NOTE | 2023-10-18 17:15 | PC.NURSE ---
michael grover aware having to infuse k slower for pt to tolerate as she states if it goes at normal rate lewis- per michael grover y-siting her iv fluids for dilution as k running.
[2023-10-18] MEDS: Ketorolac Tromethamine 15 MG/ML VIAL 30 MG IVPUSH (17:16)
[2023-10-18] MEDS: cefTRIAXone sodium 1 GM in 0.9 % Sodium Chloride 50 ML IV (17:34)
[2023-10-18] MEDS: 0.9 % Sodium Chloride 1,200 ML 1200 ML IV (17:42)
[2023-10-18 18:11] LABS: Anion Gap 7 (12-20); Blood Urea Nitrogen 9 mg/dL (9-16); Calcium 7.3 mg/dL (8.4-10.2); Carbon Dioxide 22 mmol/L (22-29); Chloride 114 mmol/L (96-108); Creatinine Clr Calc Pharmacy 91.1; Estimated Glomerular Filt Rate > 60; Glucose Random 59 mg/dL (60-115); Magnesium 1.7 mg/dL (1.6-2.6); Sodium 141 mmol/L (135-145)
[2023-10-18] MEDS: Potassium Chloride/H20 10 MEQ/100 ML PIGGYBACK 100 MEQ IV ×4 (18:18→22:29)
[2023-10-18] MEDS: Glucose Gel 15 GM GEL..GRAM. PO (18:49)
[2023-10-18 18:56] LABS: Thyroid Stimulating Hormone 0.62 uIU/mL (0.32-4.0)
[2023-10-18 19:16] LABS: Glucose, Whole Blood 102 mg/dL (60-115)
--- NOTE | 2023-10-18 19:41 | P.HPHOSP_ITS ---
History of Present Illness Date of Service: 10/18/23 Attending physician on admission: Joey Rees Chief Complaint: Right flank and lower abdominal pain Pt is a 37-year-old female with a PMH significant for?nephrolithiasis, mild intermittent asthma, interstitial lung disease, hx of OUSMANE, and recent hx of 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 Pt states pain radiates from right flank and wraps around to lower abdomen. Also complains of increased urinary urgency and some moments of incontinence. She also complains of myalgias of bilateral shoulders and upper arms and legs. Chronic chest tightness that is at baseline and she ascribes to her ILD. Denies fever, chills, nausea, vomiting. No diarrhea. Shortness of breath. Of note, patient was admitted to the hospital on 07/18-07/24 with similar symptoms and and found to have a severe OUSMANE with creatinine elevated up to 4.22. Nephrology was consulted and patient was ultimately thought to have been suffering from acute tubular necrosis secondary to infection. Patient was also noted to have hypokalemia likely secondary to renal tubular dysfunction possibly secondary to acute interstitial nephritis. Dr. Lindsay from nephrology consulted and renal biopsy was discussed but not obtained. Patient states she had outpatient follow-up with Dr. Lindsay in August. Since discharge patient states she has been taking potassium chloride 20 mEq p.o. b.i.d., but has had persistent hypokalemia, being seen 3 separate times for low potassium in the ED. She denies use of any loop or thiazide diuretics. States she has been eating and drinking normally, except for the past few days when she has had decreased appetite and not eaten since last night. In the ED pt was afebrile, but with elevated HR of 99, and was slightly soft BP of 91/58. Vital signs otherwise WNL. Labs were significant for potassium of 2.1, otherwise grossly unremarkable. No leukocytosis. Stable H&H. Renal function baseline with creatinine 0.52. Lactic acid WNL at 0.9. UA Likely positive for UTI with large amount of leukocyte esterase, wbc's >50, 4+ bacteria. CT?of abdomen and pelvis found no acute abnormality, though did show 2 mm nonobstructing calculus mid pole of right kidney with no hydronephrosis or perinephric stranding. EKG demonstrated normal sinus rhythm with nonspecific T- wave abnormality, QTc of 473. Patient was treated with IVF, potassium chloride p.o. and IV, ketorolac, ceftriaxone, and glucose gel. Pt will be admitted to the hospital for treatment and further evaluation of severe hypokalemia and UTI. Review of Systems 2 Review of Systems: Right flank and RLQ abdominal pain x 4 days Dysuria and hematuria x4 days Increased urinary urgency, some episodes of incontinence Myalgias of bilateral shoulders and upper arms and lower legs Denies fever, chills, nausea, vomiting, diarrhea PMFSH Medical History Asthma Chronic lung disease Social History Household Members: None Housing: Apartment Do you presently have visiting nurse or other home services: No Alcohol intake: current Alcohol intake frequency: does not drink Patient Tobacco Use Status: Current everyday Tobacco user Tobacco use type: Cigarette Cigarettes Per Day: 8 e-Cigarette/Vaping Use: Currently Using Second Hand Smoke Exposure: No Substance Use Type: Marijuana service: No Meds Allergies Allergy/AdvReac Type Severity Reaction Status Date / Time zolpidem [From Ambien] Allergy Difficulty Verified 10/18/23 12:10 Breathing iodine AdvReac Rash Verified 10/18/23 12:10 Home Medications Medication Instructions Recorded Confirmed Last Taken Type aripiprazole 5 mg tablet 5 mg PO DAILY 07/18/23 10/18/23 10/17/23 History clonazepam 1 mg tablet 1 mg PO BID 07/18/23 10/18/23 10/17/23 History acetaminophen 325 mg tablet 650 mg PO Q6H PRN Pain 10/18/23 10/18/23 Unknown History Physical Exam 2 Vital Signs and Narrative: Vital Signs: Last Vital Signs Temp 97.8 F 10/18/23 18:00 Pulse 94 10/18/23 19:10 Resp 16 10/18/23 19:10 BP 107/60 10/18/23 19:10 Pulse Ox 97 10/18/23 19:10 O2 Del Method Room Air 10/18/23 19:10 BMI result Body Mass Index 19.1 Constitutional: Alert, in no acute distress. Mental Status: Oriented to person, place and time. Eyes: Pupils are equal, round, and reactive to light. Ear, Nose, and Throat: Oropharynx clear, mucous membranes moist. Ears and nose without deformities. Trachea midline. Respiratory: Diffuse coarse breath sounds bilaterally. Cardiovascular: S1, S2 regular. No murmurs, rubs, or gallops. Gastrointestinal: Abdomen soft, non-distended with RLQ tenderness. Normal bowel sounds. Back: Right-sided CVA tenderness Neurologic: Cranial nerves II-XII are grossly intact bilaterally. No focal neurological deficits. Moves all extremities spontaneously. Skin: Warm, dry. Musculoskeletal: No cyanosis or clubbing. Extremities: No edema. Psychiatric: Normal mood and affect. Results Labs 10/18/23 14:44 10/18/23 17:40 Labs: Laboratory Results - last 24 hr 10/18/23 10/18/23 10/18/23 14:44 14:45 17:40 MCV 81.3 MCH 27.9 MCHC 34.3 RDW 14.0 Plt Count 230 MPV 9.3 L Immature Gran % (Auto) 0.4 Neut % (Auto) 72.5 Lymph % (Auto) 20.0 [place] % (Auto) 6.7 Eos % (Auto) 0.0 Baso % (Auto) 0.4 Lymph # (Auto) 1.0 L [place] # (Auto) 0.3 Eos # (Auto) 0.0 Baso # (Auto) 0.0 Abs Immat Gran (auto) 0.02 Absolute Neuts (auto) 3.5 Absolute Nucleated RBC 0.000 Nucleated RBC % (auto) 0.0 Anion Gap 11 L 7 L Estim Creat Clear Calc 72.8 91.1 Estimated GFR > 60 > 60 POC Glucose Random Glucose 92 59 L* Lactic Acid 0.9 Calcium 8.8 D 7.3 L D Phosphorus 2.9 Magnesium 2.0 1.7 Total Bilirubin 0.7 AST 33 H ALT 23 Alkaline Phosphatase 68 Total Creatine Kinase 73 Total Protein 7.2 Albumin 3.8 TSH 0.62 Beta HCG, Quant < 2 Urine Color Yellow Urine Appearance Cloudy Urine pH 7.0 Ur Specific [place] 1.015 Urine Protein Trace Urine Glucose (UA) Negative Urine Ketones Negative Urine Blood Small (1+) H Urine Nitrite Negative Ur Leukocyte Esterase Large (3+) H Urine RBC 0-2 Urine WBC >50 H Ur Squamous Epith Cells 3-5 Urine Bacteria 4+ Hyaline Casts 0-2 Urine Test NEGATIVE 10/18/23 18:47 MCV MCH MCHC RDW Plt Count MPV Immature Gran % (Auto) Neut % (Auto) Lymph % (Auto) [place] % (Auto) Eos % (Auto) Baso % (Auto) Lymph # (Auto) [place] # (Auto) Eos # (Auto) Baso # (Auto) Abs Immat Gran (auto) Absolute Neuts (auto) Absolute Nucleated RBC Nucleated RBC % (auto) Anion Gap Estim Creat Clear Calc Estimated GFR POC Glucose 102 Random Glucose Lactic Acid Calcium Phosphorus Magnesium Total Bilirubin AST ALT Alkaline Phosphatase Total Creatine Kinase Total Protein Albumin TSH Beta HCG, Quant Urine Color Urine Appearance Urine pH Ur Specific [place] Urine Protein Urine Glucose (UA) Urine Ketones Urine Blood Urine Nitrite Ur Leukocyte Esterase Urine RBC Urine WBC Ur Squamous Epith Cells Urine Bacteria Hyaline Casts Urine Test Imaging Radiologist's Impressions: Impressions Abdomen/Pelvis CT 10/18/23 15:47 IMPRESSION: No acute abnormality in the abdomen or pelvis. Assessment and Plan (1) Acute hypokalemia: Status: Acute (2) UTI (urinary tract infection): Status: Acute Plan Pt is a 37-year-old female with a PMH significant for?nephrolithiasis, mild intermittent asthma, interstitial lung disease, hx of OUSMANE, and recent hx of 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 Pt will be admitted to the hospital for treatment and further evaluation of severe hypokalemia and UTI. Hypokalemia Potassium 2.1 at time of presentation with repeat 2.0 after oral supplementation Patient given oral and IV supplementation in the ED Etiology unclear: Patient with history of persistent hypokalemia since July 2023, last admission attributed to acute interstitial nephritis Patient on daily potassium chloride 20 mEq p.o. b.i.d., reports medication compliance Will start on potassium chloride 40 mEq p.o. b.i.d. for now Nephrology consult Monitor on telemetry UTI UA positive for UTI Patient with dysuria, hematuria, right-sided flank pain and RLQ abdominal pain x4 days CT of abdomen and pelvis negative for acute abnormality, small 2 mm nonobstructing calculus mid pole of right kidney, but no hydronephrosis or perinephric stranding Will treat with ceftriaxone, started 10/18/2023 Follow cultures Hypoglycemia Pt's random glucose 59 Likely secondary to decreased p.o. intake; pt states she has not eaten since last night Patient not diabetic, not on insulin Patient given glucose gel in ED with repeat POC WNL at 102 ILD/mild intermittent asthma Not in acute exacerbation Continue home inhaler Mood disorder Continue aripiprazole, clonazepam Full Code Attending:?Dr. Yoan Rees DVT Prophylaxis: Lovenox Pt will require a hospitalization of at least two nights for treatment of?OUSMANE and severe persistent hypokalemia. Patient will require IV antibiotics, close monitoring of labs, and specialist consultation. Quality Stroke Does the patient have a stroke diagnosis?: No VTE Prior VTE?: No VTE Risk Level:: Medical - moderate - high VTE Device Contraindication: Treatment Not Indicated VTE Drug Contraindication: N/A - Med Ordered
--- NOTE | 2023-10-18 20:16 | PHA.MEDREC ---
Pharmacy Consult ? Medication Reconciliation Pharmacy has completed the medication reconciliation.patient had list of medications. no longer on venlafaxine. Patient states she takes clonazepam TID but prescription states BID, left as prescription stated Emely Jang CPhT
--- NOTE | 2023-10-18 22:07 | PC.NURSE ---
RBC's running at 75ml/hr
[2023-10-18] MEDS: Enoxaparin Sodium 40 MG/0.4 ML SYRINGE SUBCUT (22:29)
--- NOTE | 2023-10-19 00:13 | PM.EVENT ---
Event Note Date of Service: 10/19/23 Event Note: Chart reviewed Pt has H/o Persistent Hypokalemia Mag level is OK Will check Urine studies ie Urine K / TTKG Will check Steven/ Renin ratio ( Pt without HTN) May be a candidate for Spirinolactone Will follow Please call me with ?'s Thx Dr. Metcalf Time Spent With Patient Time: Total time managing care of this patient today ____ minutes.
[2023-10-19 01:26] LABS: Potassium Urine Random 12.8 mmol/L
[2023-10-19 01:31] LABS: Creatinine Urine 21.45 mg/dL
[2023-10-19 01:49] LABS: Osmolality, Serum 294 mosm/kg (281-305)
[2023-10-19 01:53] LABS: Osmolality Urine 212 mosm/kg (373-1093)
[2023-10-19 03:05] VITALS: BP 97/59; PULSE 95; RESP 20; TEMP 36.1; O2SAT 97
[2023-10-19] MEDS: clonazePAM 1 MG TABLET PO ×2 (03:20→22:07)
[2023-10-19 07:40] VITALS: BP 111/77; PULSE 83; RESP 20; TEMP 37; O2SAT 97
[2023-10-19 08:23] LABS: Anion Gap 8 (12-20); Blood Urea Nitrogen 11 mg/dL (9-16); Calcium 7.9 mg/dL (8.4-10.2); Carbon Dioxide 26 mmol/L (22-29); Chloride 112 mmol/L (96-108); Creatinine Clr Calc Pharmacy 72.8; Estimated Glomerular Filt Rate > 60; Glucose Random 93 mg/dL (60-115); Magnesium 1.9 mg/dL (1.6-2.6); Potassium 2.5 mmol/L (3.3-5.1); Sodium 143 mmol/L (135-145)
[2023-10-19] MEDS: Potassium Chloride Packet 20 MEQ PACKET 40 MEQ PO (09:12)
[2023-10-19] MEDS: 0.9 % Sodium Chloride Flush 3 ML SYRINGE IVFLUSH ×3 (09:14→22:08)
--- NOTE | 2023-10-19 09:55 | MHC.CM.PN ---
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 PT VERIFIES PCP DR PARESH WILLOUGHBY W/DEMAR[place], HCP IS PT'S MOTHER AWAIS [phone] AND COVID VAXED AND BOOSTED.
[2023-10-19] MEDS: Potassium Chloride/H20 10 MEQ/100 ML PIGGYBACK 100 MEQ IV ×3 (10:50→16:41)
[2023-10-19 11:17] VITALS: BP 120/73; PULSE 87; RESP 18; TEMP 36.4; O2SAT 98
--- NOTE | 2023-10-19 11:36 | HO.PM.IMPN ---
Subjective Subjective Date of Service: 10/19/23 Interval History: seen and examined this morning follow up for UTI, hypokalemia having some right flank pain, no fever or chills no abdominal pain, nausea or vomiting Review of Systems Review of Systems: Yes all other systems are reviewed and are negative Constitutional Constitutional: Denies chills and Denies fever(s) Cardiovascular Cardiovascular: Denies chest pain, Denies palpitations and Denies dyspnea Respiratory Respiratory: Denies cough and Denies dyspnea Gastrointestinal Gastrointestinal: Denies abdominal pain, Denies nausea and Denies vomiting Endocrine Endocrine: Denies palpitations Physical Exam Vital Signs: Vital Signs: Last Vital Signs Temp 97.6 F 10/19/23 11:17 Pulse 87 10/19/23 11:17 Resp 18 10/19/23 11:17 BP 120/73 10/19/23 11:17 Pulse Ox 98 10/19/23 11:17 O2 Del Method Room Air 10/19/23 11:17 BMI result Body Mass Index 19.1 Const: General: cooperative, comfortable, no acute distress, alert and awake Nutritional Appearance: average body habitus Orientation/consciousness: patient oriented x3 HEENT: Other: moist mucous membranes Resp: Effort & Inspection: normal respiratory effort, able to speak in complete sentences, no respiratory distress and no use of accessory muscles Cardio: Rate: regular rate GI: Inspection: No distended Palpation (GI): Soft to palpation and nontender Neuro: General: patient oriented x3, moves all extremities and CN's II-XI intact bilaterally Extrem: General: Yes no pedal edema Objective Data Active Medications Acetaminophen (Acetaminophen 325 Mg Tablet) 650 mg PO Q6H PRN PRN Reason: Pain, Mild (Pain Scale 1-3) Benzonatate (Benzonatate 100 Mg Capsule) 100 mg PO TID PRN PRN Reason: Cough Clonazepam (Clonazepam 1 Mg Tablet) 1 mg PO BEDTIME [facility] Last Admin: 10/19/23 03:20 Dose: 1 mg Documented By: COLETTE Docusate Sodium (Docusate Sodium 100 Mg Capsule) 100 mg PO DAILY PRN PRN Reason: Constipation Enoxaparin Sodium (Enoxaparin Sodium 40 Mg/0.4 Ml Syringe) 40 mg SUBCUT Q24H [facility] Last Admin: 10/18/23 22:29 Dose: 40 mg Documented By: EPI Potassium Chloride (Potassium Chloride/H20) 10 meq in 100 mls @ 100 mls/hr IV Q1H CIRO Stop: 10/19/23 13:44 Last Infusion: 10/19/23 11:29 Dose: 0 mls/hr Documented By: JOSEP Melatonin (Melatonin 3 Mg Tablet) 6 mg PO BEDTIME PRN PRN Reason: Insomnia Ondansetron HCl (Ondansetron Hcl 4 Mg/2 Ml Vial) 4 mg IVPUSH Q8H PRN PRN Reason: Nausea and Vomiting Potassium Chloride (Potassium Chloride Packet 20 Meq Packet) 40 meq PO BID [facility] Last Admin: 10/19/23 09:12 Dose: 40 meq Documented By: JOSEP Sodium Chloride (0.9 % Sodium Chloride Flush 3 Ml Syringe) 3 ml IVFLUSH QSHIFT [facility] Last Admin: 10/19/23 09:14 Dose: 3 ml Documented By: JOSEP Labs 10/18/23 14:44 10/19/23 07:19 Labs: Laboratory Results - last 24 hr 10/18/23 10/18/23 10/18/23 14:44 14:45 17:40 MCV 81.3 MCH 27.9 MCHC 34.3 RDW 14.0 Plt Count 230 MPV 9.3 L Immature Gran % (Auto) 0.4 Neut % (Auto) 72.5 Lymph % (Auto) 20.0 [place] % (Auto) 6.7 Eos % (Auto) 0.0 Baso % (Auto) 0.4 Lymph # (Auto) 1.0 L [place] # (Auto) 0.3 Eos # (Auto) 0.0 Baso # (Auto) 0.0 Abs Immat Gran (auto) 0.02 Absolute Neuts (auto) 3.5 Absolute Nucleated RBC 0.000 Nucleated RBC % (auto) 0.0 Hold Purple Top Anion Gap 11 L 7 L Estim Creat Clear Calc 72.8 91.1 Estimated GFR > 60 > 60 POC Glucose Random Glucose 92 59 L* Osmolality Lactic Acid 0.9 Calcium 8.8 D 7.3 L D Phosphorus 2.9 Magnesium 2.0 1.7 Total Bilirubin 0.7 AST 33 H ALT 23 Alkaline Phosphatase 68 Total Creatine Kinase 73 Total Protein 7.2 Albumin 3.8 TSH 0.62 Beta HCG, Quant < 2 Urine Color Yellow Urine Appearance Cloudy Urine pH 7.0 Ur Specific [place] 1.015 Urine Protein Trace Urine Glucose (UA) Negative Urine Ketones Negative Urine Blood Small (1+) H Urine Nitrite Negative Ur Leukocyte Esterase Large (3+) H Urine RBC 0-2 Urine WBC >50 H Ur Squamous Epith Cells 3-5 Urine Bacteria 4+ Hyaline Casts 0-2 Urine Osmolality Ur Random Sodium Ur Random Potassium Urine Creatinine Urine Test NEGATIVE 10/18/23 10/19/23 10/19/23 18:47 01:05 01:10 MCV MCH MCHC RDW Plt Count MPV Immature Gran % (Auto) Neut % (Auto) Lymph % (Auto) [place] % (Auto) Eos % (Auto) Baso % (Auto) Lymph # (Auto) [place] # (Auto) Eos # (Auto) Baso # (Auto) Abs Immat Gran (auto) Absolute Neuts (auto) Absolute Nucleated RBC Nucleated RBC % (auto) Hold Purple Top SEE NOTE Anion Gap Estim Creat Clear Calc Estimated GFR POC Glucose 102 Random Glucose Osmolality 294 Lactic Acid Calcium Phosphorus Magnesium Total Bilirubin AST ALT Alkaline Phosphatase Total Creatine Kinase Total Protein Albumin TSH Beta HCG, Quant Urine Color Urine Appearance Urine pH Ur Specific [place] Urine Protein Urine Glucose (UA) Urine Ketones Urine Blood Urine Nitrite Ur Leukocyte Esterase Urine RBC Urine WBC Ur Squamous Epith Cells Urine Bacteria Hyaline Casts Urine Osmolality 212 L Ur Random Sodium 61.0 Ur Random Potassium 12.8 Urine Creatinine 21.45 Urine Test 10/19/23 07:19 MCV MCH MCHC RDW Plt Count MPV Immature Gran % (Auto) Neut % (Auto) Lymph % (Auto) [place] % (Auto) Eos % (Auto) Baso % (Auto) Lymph # (Auto) [place] # (Auto) Eos # (Auto) Baso # (Auto) Abs Immat Gran (auto) Absolute Neuts (auto) Absolute Nucleated RBC Nucleated RBC % (auto) Hold Purple Top Anion Gap 8 L Estim Creat Clear Calc 72.8 Estimated GFR > 60 POC Glucose Random Glucose 93 Osmolality Lactic Acid Calcium 7.9 L D Phosphorus Magnesium 1.9 Total Bilirubin AST ALT Alkaline Phosphatase Total Creatine Kinase Total Protein Albumin TSH Beta HCG, Quant Urine Color Urine Appearance Urine pH Ur Specific [place] Urine Protein Urine Glucose (UA) Urine Ketones Urine Blood Urine Nitrite Ur Leukocyte Esterase Urine RBC Urine WBC Ur Squamous Epith Cells Urine Bacteria Hyaline Casts Urine Osmolality Ur Random Sodium Ur Random Potassium Urine Creatinine Urine Test Microbiology Microbiology Results: Microbiology 10/18/23 15:15 Urine Culture - Final Urine clean catch - Urine hernández top Strep agalactiae (Grp B) Assessment and Plan (1) Acute hypokalemia: Status: Acute (2) UTI (urinary tract infection): Status: Acute Plan Pt is a 37-year-old female with a PMH significant for?nephrolithiasis, mild intermittent asthma, interstitial lung disease, hx of OUSMANE, and recent hx of 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 Pt will be admitted to the hospital for treatment and further evaluation of severe hypokalemia and UTI. Hypokalemia K 2.5 this am history of hypokalemia since July 2023, last admission attributed to acute interstitial nephritis received 1 bag of IV k this am and is refusing any further IV replacement continue 40 mEq p.o. b.i.d. mag 1.9 Nephrology consult pending Monitor on telemetry UTI UA positive for UTI CT of abdomen and pelvis negative for acute abnormality, small 2 mm nonobstructing calculus mid pole of right kidney, but no hydronephrosis or perinephric stranding continue IV ceftriaxone, started 10/18/2023 follow urine culture Hypoglycemia. resolved random glucose on 10/18 was 59 Likely secondary to decreased p.o. intake; pt states she has not eaten since last night Patient not diabetic, not on insulin ILD/mild intermittent asthma Not in acute exacerbation Continue home inhaler Mood Continue aripiprazole, clonazepam Full Code Attending:?Mlapah DVT Prophylaxis: Lovenox Patient requires ongoing inpatient stay for treatment of?OUSMANE and severe persistent hypokalemia. Patient will require IV antibiotics, close monitoring of labs, and specialist consultation. Quality Stroke Does the patient have a stroke diagnosis?: No VTE Prior VTE?: No VTE Risk Level:: Medical - moderate - high VTE Device Contraindication: Treatment Not Indicated VTE Drug Contraindication: N/A - Med Ordered
[2023-10-19 13:59] LABS: Potassium 2.7 mmol/L (3.3-5.1)
[2023-10-19] MEDS: Acetaminophen 325 MG TABLET 650 MG PO (15:12)
[2023-10-19 15:35] VITALS: BP 134/84; PULSE 98; RESP 19; TEMP 36.8; O2SAT 98
[2023-10-19] MEDS: cefTRIAXone sodium 1 GM in 0.9 % Sodium Chloride 50 ML IV (16:41)
[2023-10-19] MEDS: oxyCODONE HCl Immed Release 5 MG TABLET PO (17:57)
[2023-10-19 20:00] VITALS: BP 97/69; PULSE 70; RESP 20; TEMP 36.1; O2SAT 97
[2023-10-19] MEDS: Enoxaparin Sodium 40 MG/0.4 ML SYRINGE SUBCUT (22:07)
[2023-10-19] MEDS: Ketorolac Tromethamine 30 MG/ML VIAL IVPUSH (23:13)
[2023-10-19] MEDS: Potassium Chloride ER 20 MEQ TAB.ER.PRT 40 MEQ PO (23:24)
[2023-10-19 23:44] VITALS: BP 109/66; PULSE 85; RESP 18; TEMP 36.9; O2SAT 98
[2023-10-20 03:13] VITALS: BP 124/82; PULSE 82; RESP 18; TEMP 36.6; O2SAT 98
[2023-10-20] MEDS: 0.9 % Sodium Chloride 1,000 ML 125 ML IVCONT ×3 (05:30→22:50)
[2023-10-20] MEDS: Ketorolac Tromethamine 30 MG/ML VIAL IVPUSH (06:26)
[2023-10-20 07:43] LABS: Anion Gap 10 (12-20); Blood Urea Nitrogen 11 mg/dL (9-16); Calcium 8.1 mg/dL (8.4-10.2); Carbon Dioxide 23 mmol/L (22-29); Chloride 109 mmol/L (96-108); Creatinine Clr Calc Pharmacy 68.7; Estimated Glomerular Filt Rate > 60; Glucose Random 103 mg/dL (60-115); Sodium 139 mmol/L (135-145)
[2023-10-20 08:00] VITALS: BP 107/62; PULSE 84; RESP 20; TEMP 36.2; O2SAT 97
[2023-10-20] MEDS: Potassium Chloride ER 20 MEQ TAB.ER.PRT 40 MEQ PO ×2 (09:12→22:45)
[2023-10-20] MEDS: ARIPiprazole 5 MG TABLET PO (09:12)
[2023-10-20] MEDS: 0.9 % Sodium Chloride Flush 3 ML SYRINGE IVFLUSH ×3 (09:12→22:48)
[2023-10-20] MEDS: Acetaminophen 325 MG TABLET 650 MG PO (09:14)
[2023-10-20] MEDS: polyethylene glycoL 3350 17 GM POWD.PACK PO (09:50)
[2023-10-20] MEDS: Morphine Sulfate 2 MG/ML CARTRIDGE IVPUSH (10:00)
[2023-10-20] MEDS: clonazePAM 1 MG TABLET PO ×2 (10:08→22:44)
[2023-10-20 10:48] LABS: Potassium Urine Random 29.2 mmol/L
[2023-10-20 11:22] VITALS: BP 97/60; PULSE 96; RESP 20; TEMP 36.8; O2SAT 97
[2023-10-20] MEDS: methylPREDNISolone Sod Succ 125 MG/2 ML VIAL 60 MG IVPUSH (11:22)
[2023-10-20] MEDS: Spironolactone 25 MG TABLET PO (11:22)
[2023-10-20] MEDS: iohexoL 350 MG/ML 100 ML INFUS..BTL IV ×2 (12:52→13:02)
--- NOTE | 2023-10-20 13:12 | PC.NURSE ---
Pt requesting to take a shower. RN educated pt and pt's family about pt safety and at this time it was not appropriate for her to shower d/t her level of weakness. Pt and pt's family member became argumentative and demanding of an IV wrap, stating she is taking a shower regardless. IV wrapped. High fall risk interventions refused. Plan of care ongoing.
--- NOTE | 2023-10-20 14:14 | HO.PM.IMPN ---
Subjective Subjective Date of Service: 10/20/23 Interval History: seen and examined this morning Seen in follow up for UTI, hypokalemia Interval history: Reports worsening R flank pain 03/17, abd distension and pain 05/17. Still with dysuria, increased urinary frequency. Last BM yesterday but constipated. No n/v. No fever/chills Review of Systems Review of Systems: Yes all other systems are reviewed and are negative Physical Exam Vital Signs: Vital Signs: Last Vital Signs Temp 98.2 F 10/20/23 11:22 Pulse 96 10/20/23 11:22 Resp 20 10/20/23 11:22 BP 97/60 10/20/23 11:22 Pulse Ox 97 10/20/23 11:22 O2 Del Method Room Air 10/20/23 11:22 BMI result Body Mass Index 19.1 Constitutional - Awake and Alert, No apparent distress Eyes - PERRLA, EOMI Cardiovascular - S1S2, RRR, No edema Respiratory - Normal lung expansion, Normal respiratory effort, No respiratory distress, CTA bilaterally Gastrointestinal - softly distended with diffuse ttp, worst right side, without guarding or rebound. +BS - R sided CVA tenderness Extremities - no calf tenderness bilaterally, no swelling Skin - Warm/Dry Neurological - Alert & oriented x3 Psychological - Appropriate affect Objective Data Active Medications Acetaminophen (Acetaminophen 325 Mg Tablet) 650 mg PO Q6H PRN PRN Reason: Pain, Mild (Pain Scale 1-3) Last Admin: 10/20/23 09:14 Dose: 650 mg Documented By: COLETTE Albuterol Sulfate (Albuterol Sulfate 90 Mcg 8 Gm Inhaler) 2 puff INHALE RQ4H PRN PRN Reason: shortness of breath or wheezing Benzonatate (Benzonatate 100 Mg Capsule) 100 mg PO TID PRN PRN Reason: Cough Clonazepam (Clonazepam 1 Mg Tablet) 1 mg PO BID [facility] Last Admin: 10/20/23 10:08 Dose: 1 mg Documented By: COLETTE Docusate Sodium (Docusate Sodium 100 Mg Capsule) 100 mg PO DAILY PRN PRN Reason: Constipation Enoxaparin Sodium (Enoxaparin Sodium 40 Mg/0.4 Ml Syringe) 40 mg SUBCUT Q24H [facility] Last Admin: 10/19/23 22:07 Dose: 40 mg Documented By: DREW Ceftriaxone Sodium 1 gm/ (Sodium Chloride) 50 mls @ 100 mls/hr IV Q24H [facility] Last Infusion: 10/19/23 17:11 Dose: Infused Documented By: JOSEP Sodium Chloride (Ns) 1,000 mls @ 125 mls/hr IVCONT .Q8H [facility] Last Admin: 10/20/23 09:02 Dose: Not Given Documented By: COLETTE Non-Admin Reason: IV Running Ketorolac Tromethamine (Ketorolac Tromethamine 30 Mg/Ml Vial) 30 mg IVPUSH Q6H PRN PRN Reason: Pain, Moderate(Pain Scale 4-6) Last Admin: 10/20/23 06:26 Dose: 30 mg Documented By: DREW Melatonin (Melatonin 3 Mg Tablet) 6 mg PO BEDTIME PRN PRN Reason: Insomnia Morphine Sulfate (Morphine Sulfate 2 Mg/Ml Cartridge) 2 mg IVPUSH Q4H PRN; Protocol PRN Reason: Pain, Severe (Pain Scale 7-10) Last Admin: 10/20/23 10:00 Dose: 2 mg Documented By: COLETTE Ondansetron HCl (Ondansetron Hcl 4 Mg/2 Ml Vial) 4 mg IVPUSH Q8H PRN PRN Reason: Nausea and Vomiting Polyethylene Glycol (Polyethylene Glycol 3350 17 Gm Powd.Pack) 17 gm PO DAILY [facility] Last Admin: 10/20/23 09:50 Dose: 17 gm Documented By: COLETTE Potassium Chloride (Potassium Chloride Er 20 Meq Tab.Er.Prt) 40 meq PO BID [facility] Last Admin: 10/20/23 09:12 Dose: 40 meq Documented By: COLETTE Sodium Chloride (0.9 % Sodium Chloride Flush 3 Ml Syringe) 3 ml IVFLUSH QSHIFT [facility] Last Admin: 10/20/23 09:12 Dose: 3 ml Documented By: COLETTE Spironolactone (Spironolactone 25 Mg Tablet) 25 mg PO DAILY [facility]; Protocol Last Admin: 10/20/23 11:22 Dose: 25 mg Documented By: FRANKLIN Labs 10/18/23 14:44 10/20/23 07:03 Labs: Laboratory Results - last 24 hr 10/20/23 10/20/23 07:03 09:24 Anion Gap 10 L Estim Creat Clear Calc 68.7 Estimated GFR > 60 Random Glucose 103 Calcium 8.1 L Ur Random Potassium 29.2 Microbiology Microbiology Results: Microbiology 10/18/23 15:15 Urine Culture - Final Urine clean catch - Urine hernández top Strep agalactiae (Grp B) Assessment and Plan (1) Acute hypokalemia: Status: Acute (2) UTI (urinary tract infection): Status: Acute Plan Pt is a 37-year-old female with a PMH significant for?nephrolithiasis, mild intermittent asthma, interstitial lung disease, hx of OUSMANE, and recent hx of 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 Pt will be admitted to the hospital for treatment and further evaluation of severe hypokalemia and UTI. Hypokalemia Severe and recurrent K improved to 3.0 this morning Unlikely hyperadrenalism given no htn. Unlikely RTA given urine ph and serum bicarb TTKG 13, suggestive of renal losses Has poor PO intake Refuses further IV repletion. Started on 40meq KCL ER BID Add spironolactone 25mg daily Goal: K 4.2, mag >2.0 Encourage high K diet Appreciate nephro input Follow lytes including mag Monitor on telemetry UTI UA positive for UTI CT of abdomen and pelvis negative for acute abnormality, small 2 mm nonobstructing calculus mid pole of right kidney, but no hydronephrosis or perinephric stranding 10/20- worsening R flank pain with abd distension and pain. Repeat CT abd/pelvis w/ contrast to eval for pyelo or orther acute intraabdominal abd. Has iodine allergy with nonspecific rash. Premedicated with IV solumedrol (reports anaphylaxis to benadryl) continue IV ceftriaxone, started 10/18/2023 Continue IVF follow urine culture, blood cultures Hypoglycemia. resolved random glucose on 10/18 was 59 Likely secondary to decreased p.o. Encourage PO intake Patient not diabetic, not on insulin ILD/mild intermittent asthma Not in acute exacerbation Continue home inhaler Mood Continue aripiprazole, clonazepam Full Code Attending:?Mlapah DVT Prophylaxis: Lovenox Patient requires ongoing inpatient stay for treatment of?OUSMANE and severe persistent hypokalemia. Patient will require IV antibiotics, close monitoring of labs, and specialist consultation. Quality Stroke Does the patient have a stroke diagnosis?: No VTE Prior VTE?: No VTE Risk Level:: Medical - moderate - high VTE Device Contraindication: Treatment Not Indicated VTE Drug Contraindication: N/A - Med Ordered
[2023-10-20 14:38] LABS: Magnesium 1.8 mg/dL (1.6-2.6)
[2023-10-20 15:33] VITALS: BP 119/74; PULSE 89; RESP 18; TEMP 37.1; O2SAT 97
[2023-10-20] MEDS: cefTRIAXone sodium 1 GM in 0.9 % Sodium Chloride 50 ML IV (16:05)
[2023-10-20 19:37] VITALS: BP 110/64; PULSE 96; RESP 18; TEMP 36.4; O2SAT 94
[2023-10-20 23:57] VITALS: BP 116/61; PULSE 70; RESP 18; TEMP 36.4; O2SAT 98
[2023-10-21 04:00] VITALS: BP 105/68; PULSE 68; RESP 18; TEMP 36.6; O2SAT 97
[2023-10-21] MEDS: Acetaminophen 325 MG TABLET 650 MG PO ×2 (05:46→20:40)
[2023-10-21 05:47] LABS: Glucose, Whole Blood 143 mg/dL (60-115)
[2023-10-21] MEDS: Calcium Carbonate 750 MG TAB.CHEW PO (05:50)
[2023-10-21] MEDS: 0.9 % Sodium Chloride 1,000 ML 125 ML IVCONT (07:10)
[2023-10-21 07:35] LABS: Anion Gap 8 (12-20); Blood Urea Nitrogen 7 mg/dL (9-16); Calcium 8.3 mg/dL (8.4-10.2); Carbon Dioxide 21 mmol/L (22-29); Chloride 114 mmol/L (96-108); Creatinine Clr Calc Pharmacy 72.8; Estimated Glomerular Filt Rate > 60; Glucose Random 155 mg/dL (60-115); Magnesium 1.7 mg/dL (1.6-2.6); Potassium 3.2 mmol/L (3.3-5.1); Sodium 140 mmol/L (135-145)
[2023-10-21 07:43] VITALS: BP 117/74; PULSE 100; RESP 20; TEMP 36.9; O2SAT 94
[2023-10-21] MEDS: polyethylene glycoL 3350 17 GM POWD.PACK PO (08:55)
[2023-10-21] MEDS: Potassium Chloride ER 20 MEQ TAB.ER.PRT 40 MEQ PO ×2 (08:55→20:35)
[2023-10-21] MEDS: Spironolactone 25 MG TABLET PO ×2 (08:55→20:40)
[2023-10-21] MEDS: clonazePAM 1 MG TABLET PO ×2 (08:55→20:40)
[2023-10-21] MEDS: Morphine Sulfate 2 MG/ML CARTRIDGE IVPUSH (09:02)
[2023-10-21 10:27] LABS: Estimated Average Glucose 85 mg/dL; Hemoglobin A1c % 4.6 % (<6.0)
[2023-10-21 11:45] LABS: COVID-19 Test Negative (Negative); IDNOW Serial# 08D9AD1C
[2023-10-21 12:00] VITALS: BP 134/79; PULSE 100; RESP 18; TEMP 37.1; O2SAT 96
--- NOTE | 2023-10-21 13:47 | PC.NURSE ---
patient resting in bed,comfortable denies pain,family at bedside,bed alarm on for safety
--- NOTE | 2023-10-21 14:07 | P.PNIM_ITS ---
Subjective Subjective Date of Service: 10/21/23 Interval History: potassiumstill low, headache, abd pain, Physical Exam 2 Vital Signs: Vital Signs: Last Vital Signs Temp 98.8 F 10/21/23 12:00 Pulse 100 10/21/23 12:00 Resp 18 10/21/23 12:00 BP 134/79 10/21/23 12:00 Pulse Ox 96 10/21/23 12:00 O2 Del Method Room Air 10/21/23 12:00 BMI result Body Mass Index 19.1 Const: Other: General: AO X 3, no acute distress Resp: CTA bilateral CVS: S1,S2,RRR GI: +BS, NT, no distention---exam essentially normal Skin: No rash Neuro: motor grossly intact Psych: appropriate affect Objective Data Active Medications Acetaminophen (Acetaminophen 325 Mg Tablet) 650 mg PO Q6H PRN PRN Reason: Pain, Mild (Pain Scale 1-3) Last Admin: 10/21/23 05:46 Dose: 650 mg Documented By: DREW Albuterol Sulfate (Albuterol Sulfate 90 Mcg 8 Gm Inhaler) 2 puff INHALE RQ4H PRN PRN Reason: shortness of breath or wheezing Benzonatate (Benzonatate 100 Mg Capsule) 100 mg PO TID PRN PRN Reason: Cough Calcium Carbonate (Calcium Carbonate 750 Mg Tab.Chew) 750 mg PO Q6H PRN PRN Reason: Heartburn Last Admin: 10/21/23 05:50 Dose: 750 mg Documented By: DREW Clonazepam (Clonazepam 1 Mg Tablet) 1 mg PO BID [facility] Last Admin: 10/21/23 08:55 Dose: 1 mg Documented By: COLETTE Docusate Sodium (Docusate Sodium 100 Mg Capsule) 100 mg PO DAILY PRN PRN Reason: Constipation Enoxaparin Sodium (Enoxaparin Sodium 40 Mg/0.4 Ml Syringe) 40 mg SUBCUT Q24H [facility] Last Admin: 10/20/23 22:48 Dose: Not Given Documented By: DREW Non-Admin Reason: Patient Refused Ceftriaxone Sodium 1 gm/ (Sodium Chloride) 50 mls @ 100 mls/hr IV Q24H [facility] Last Infusion: 10/20/23 16:40 Dose: Infused Documented By: FRANKLIN Ketorolac Tromethamine (Ketorolac Tromethamine 30 Mg/Ml Vial) 30 mg IVPUSH Q6H PRN PRN Reason: Pain, Moderate(Pain Scale 4-6) Last Admin: 10/20/23 06:26 Dose: 30 mg Documented By: DREW Melatonin (Melatonin 3 Mg Tablet) 6 mg PO BEDTIME PRN PRN Reason: Insomnia Morphine Sulfate (Morphine Sulfate 2 Mg/Ml Cartridge) 2 mg IVPUSH Q4H PRN; Protocol PRN Reason: Pain, Severe (Pain Scale 7-10) Last Admin: 10/21/23 09:02 Dose: 2 mg Documented By: COLETTE Ondansetron HCl (Ondansetron Hcl 4 Mg/2 Ml Vial) 4 mg IVPUSH Q8H PRN PRN Reason: Nausea and Vomiting Polyethylene Glycol (Polyethylene Glycol 3350 17 Gm Powd.Pack) 17 gm PO DAILY [facility] Last Admin: 10/21/23 08:55 Dose: 17 gm Documented By: COLETTE Potassium Chloride (Potassium Chloride Er 20 Meq Tab.Er.Prt) 40 meq PO BID [facility] Last Admin: 10/21/23 08:55 Dose: 40 meq Documented By: COLETTE Sodium Chloride (0.9 % Sodium Chloride Flush 3 Ml Syringe) 3 ml IVFLUSH QSHIFT [facility] Last Admin: 10/21/23 07:12 Dose: Not Given Documented By: COLETTE Non-Admin Reason: IV Running Spironolactone (Spironolactone 25 Mg Tablet) 25 mg PO BID [facility]; Protocol Labs 10/18/23 14:44 10/21/23 06:43 Labs: Laboratory Results - last 24 hr 10/20/23 10/21/23 10/21/23 07:03 05:42 06:43 Hold Purple Top SEE NOTE Anion Gap 8 L Estim Creat Clear Calc 72.8 Estimated GFR > 60 POC Glucose 143 H Random Glucose 155 H Estimat Average Glucose 85 Hemoglobin A1c % 4.6 Calcium 8.3 L Magnesium 1.8 1.7 COVID-19 ([facility]) COVID-19 Clin Com 10/21/23 08:55 Hold Purple Top Anion Gap Estim Creat Clear Calc Estimated GFR POC Glucose Random Glucose Estimat Average Glucose Hemoglobin A1c % Calcium Magnesium COVID-19 ([facility]) Negative COVID-19 Clin Com See Note Assessment and Plan (1) Acute hypokalemia: Status: Acute (2) UTI (urinary tract infection): Status: Acute Plan Pt is a 37-year-old female with a PMH significant for?nephrolithiasis, mild intermittent asthma, interstitial lung disease, hx of OUSMANE, and recent hx of 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 Pt will be admitted to the hospital for treatment and further evaluation of severe hypokalemia and UTI. Hypokalemia Severe and recurrent K improved to 3.2 this morning Unlikely hyperadrenalism given no htn. Unlikely RTA given urine ph and serum bicarb TTKG 13, suggestive of renal losses Has poor PO intake Refuses further IV repletion. Started on 40meq KCL ER BID Add spironolactone 25mg bid Goal: K 4.2, mag >2.0 Encourage high K diet Appreciate nephro input Follow lytes including mag Monitor on telemetry UTI UA positive for UTI CT of abdomen and pelvis negative for acute abnormality, small 2 mm nonobstructing calculus mid pole of right kidney, but no hydronephrosis or perinephric stranding 10/20- worsening R flank pain with abd distension and pain. Repeat CT abd/pelv on 10/20 no acute finding. continue IV ceftriaxone, started 10/18/2023, change to PO Ceftin at discharge Continue IVF follow urine culture, blood cultures Hypoglycemia. resolved random glucose on 10/18 was 59 Likely secondary to decreased p.o. Encourage PO intake Patient not diabetic, not on insulin ILD/mild intermittent asthma Not in acute exacerbation Continue home inhaler Mood Continue aripiprazole, clonazepam Full Code Attending:?[place] DVT Prophylaxis: Lovenox Patient requires ongoing inpatient stay for treatment of?OUSMANE and severe persistent hypokalemia. Patient will require IV antibiotics, close monitoring of labs, and specialist consultation. Quality Stroke Does the patient have a stroke diagnosis?: No VTE Prior VTE?: No VTE Risk Level:: Medical - moderate - high VTE Device Contraindication: Treatment Not Indicated VTE Drug Contraindication: N/A - Med Ordered
--- NOTE | 2023-10-21 14:43 | PC.NURSE ---
Report given to studio operations engineer in chargeVINCE Fonseca,
[2023-10-21 15:02] VITALS: BP 115/75; PULSE 96; RESP 16; TEMP 36.7; O2SAT 98
[2023-10-21] MEDS: cefTRIAXone sodium 1 GM in 0.9 % Sodium Chloride 50 ML IV (15:37)
[2023-10-21] MEDS: 0.9 % Sodium Chloride Flush 3 ML SYRINGE IVFLUSH ×2 (15:37→20:42)
[2023-10-21 19:14] VITALS: BP 110/72; PULSE 98; RESP 18; TEMP 36.5; O2SAT 96
[2023-10-21] MEDS: Enoxaparin Sodium 40 MG/0.4 ML SYRINGE SUBCUT (20:40)
--- NOTE | 2023-10-21 21:50 | P.PNNP_ITS ---
Subjective Subjective Date of Service: 10/21/23 Interval history: Feels better No CP C/o Mild Abd pain Physical Exam 2 Vital Signs: Vital Signs: Last Vital Signs Temp 97.7 F 10/21/23 19:14 Pulse 98 10/21/23 19:14 Resp 18 10/21/23 19:14 BP 110/72 10/21/23 19:14 Pulse Ox 96 10/21/23 19:14 O2 Del Method Room Air 10/21/23 19:14 O2 Flow Rate 98 10/21/23 15:02 BMI result Body Mass Index 19.1 Const: Other: General: AO X 3, no acute distress Resp: CTA bilateral CVS: S1,S2,RRR GI: +BS, NT, no distention---exam essentially normal Skin: No rash Neuro: motor grossly intact Psych: appropriate affect Objective Data Labs 10/18/23 14:44 10/21/23 06:43 Labs: Laboratory Results - last 24 hr 10/21/23 10/21/23 10/21/23 05:42 06:43 08:55 Hold Purple Top SEE NOTE Sodium 140 Potassium 3.2 L Chloride 114 H Carbon Dioxide 21 L Anion Gap 8 L BUN 7 L Creatinine 0.65 Estim Creat Clear Calc 72.8 Estimated GFR > 60 POC Glucose 143 H Random Glucose 155 H Estimat Average Glucose 85 Hemoglobin A1c % 4.6 Calcium 8.3 L Magnesium 1.7 COVID-19 ([facility]) Negative COVID-19 Clin Com See Note Microbiology Microbiology Results: Microbiology 10/18/23 15:15 Urine clean catch - Urine hernández top Urine Culture - Final Strep agalactiae (Grp B) Procedures Date of Service Date of Service: 10/21/23 Assessment & Plan Assessment and plan (1) Acute renal failure: Status: Acute Plan 1. Hypokalemia - Severe and recurrent NO HTN - Doubt hyperadrenalism NO GI Losses Poor PO intake TTKG= 7-8 in the setting of very low K c/w Renal losses ( Pt not on diuretics) Doubt RTA given Urine PH and serum bicarb level 2. Mild Low Mag 3. OUSMANE resolved High K diet F/u Steven renin Ratio Increase Aldactone 25 mg BID KCL as needed - CAn d/c once Serum K is > 4.0 Keep Mag around 2.0 Needs out pt f/u with us after D/c Thx Dr. Metcalf Time Spent With Patient Time: Total time managing care of this patient today ____ minutes. Progress Note: Quality Stroke Does the patient have a stroke diagnosis?: No
[2023-10-22] VITALS: BP 107/68; PULSE 96; RESP 16; TEMP 36.6; O2SAT 95
[2023-10-22 03:06] VITALS: RESP 16
[2023-10-22 05:28] LABS: Anion Gap 10 (12-20); Blood Urea Nitrogen 16 mg/dL (9-16); Calcium 8.5 mg/dL (8.4-10.2); Carbon Dioxide 24 mmol/L (22-29); Chloride 111 mmol/L (96-108); Creatinine Clr Calc Pharmacy 68.7; Estimated Glomerular Filt Rate > 60; Glucose Random 92 mg/dL (60-115); Magnesium 1.8 mg/dL (1.6-2.6); Potassium 3.3 mmol/L (3.3-5.1); Sodium 142 mmol/L (135-145)
[2023-10-22 07:27] VITALS: BP 121/70; PULSE 97; RESP 18; TEMP 36.4; O2SAT 97
--- NOTE | 2023-10-22 08:33 | PM.DS ---
DS: Providers Provider Date of Service: 10/22/23 Date of admission: 10/18/23 20:44 Primary care physician: Scarlet Hooker MD Consults: 10/18/23 20:48 Consult to Nephrology Routine Consulting Provider: Refugio Lindsay Reason for consultation: Persistent hypokalemia, hx of ATN, AIN DS: Diagnosis Discharge Diagnosis (1) Acute renal failure: Status: Acute DS: Summary Hospital Course Hospital Course: admission hpi: Chief Complaint: Right flank and lower abdominal pain Pt is a 37-year-old female with a PMH significant for?nephrolithiasis, mild intermittent asthma, interstitial lung disease, hx of OUSMANE, and recent hx of 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 Pt states pain radiates from right flank and wraps around to lower abdomen. Also complains of increased urinary urgency and some moments of incontinence. She also complains of myalgias of bilateral shoulders and upper arms and legs. Chronic chest tightness that is at baseline and she ascribes to her ILD. Denies fever, chills, nausea, vomiting. No diarrhea. Shortness of breath. Of note, patient was admitted to the hospital on 07/18-07/24 with similar symptoms and and found to have a severe OUSMANE with creatinine elevated up to 4.22. Nephrology was consulted and patient was ultimately thought to have been suffering from acute tubular necrosis secondary to infection. Patient was also noted to have hypokalemia likely secondary to renal tubular dysfunction possibly secondary to acute interstitial nephritis. Dr. Lindsay from nephrology consulted and renal biopsy was discussed but not obtained. Patient states she had outpatient follow-up with Dr. Lindsay in August. Since discharge patient states she has been taking potassium chloride 20 mEq p.o. b.i.d., but has had persistent hypokalemia, being seen 3 separate times for low potassium in the ED. She denies use of any loop or thiazide diuretics. States she has been eating and drinking normally, except for the past few days when she has had decreased appetite and not eaten since last night. In the ED pt was afebrile, but with elevated HR of 99, and was slightly soft BP of 91/58. Vital signs otherwise WNL. Labs were significant for potassium of 2.1, otherwise grossly unremarkable. No leukocytosis. Stable H&H. Renal function baseline with creatinine 0.52. Lactic acid WNL at 0.9. UA Likely positive for UTI with large amount of leukocyte esterase, wbc's >50, 4+ bacteria. CT?of abdomen and pelvis found no acute abnormality, though did show 2 mm nonobstructing calculus mid pole of right kidney with no hydronephrosis or perinephric stranding. EKG demonstrated normal sinus rhythm with nonspecific T-wave abnormality, QTc of 473. Patient was treated with IVF, potassium chloride p.o. and IV, ketorolac, ceftriaxone, and glucose gel. Pt will be admitted to the hospital for treatment and further evaluation of severe hypokalemia and UTI. Hospital course: Hypokalemia--Patient to found Severe and recurrent with initial potassium of 2.1. She has been given potassium supplement with gradual incrase in potassium to now 3.3. She is has been evaluated by nephrology and not believed to have hyperadrenalism given no HTN. Likewise, RTA is ruled out given urine ph and serum bicarb levels. TTKG 13, suggestive of renal losses in addition to insuficient oral intake. Nephrology has added Aldactone 25 mg twice daily with goal to keep K at 4 and mag of 2 or better, mag is presently 1.8 UTI --UA positive for UTI, Urine culture has grown group Strep CT of abdomen and pelvis negative for acute abnormality, small 2 mm nonobstructing calculus mid pole of right kidney, but no hydronephrosis or perinephric stranding 10/20- worsening R flank pain with abd distension and pain. Repeat CT abd/pelv on 10/20 no acute finding. She has been treated with IV ceftriaxone, started 10/18/2023, change to PO Ceftin at discharge for 3 more days Hypoglycemia. resolved random glucose on 10/18 was 59 Likely secondary to decreased p.o. Encourage PO intake Patient not diabetic, not on insulin, glucose is presently within normal ILD/mild intermittent asthma Not in acute exacerbation Continue home inhaler Mood Continue aripiprazole, clonazepam Time Attestation Discharge coordination time: Greater than 30 minutes Quality: Safe Use of Opioids Does Pt have an Active Cancer Diagnosis on the Problem List?: No Quality: Stroke Does the patient have a stroke diagnosis?: No Physical Exam Vital Signs: Vital Signs: Last Vital Signs Temp 97.6 F 10/22/23 07:27 Pulse 97 10/22/23 07:27 Resp 18 10/22/23 07:27 BP 121/70 10/22/23 07:27 Pulse Ox 97 10/22/23 07:27 O2 Del Method Room Air 10/22/23 07:27 O2 Flow Rate 98 10/21/23 15:02 BMI result Body Mass Index 19.1 DS: Data Data Completed and Pending Labs on day of discharge: Laboratory Results - last 24 hr 10/21/23 10/21/23 10/22/23 06:43 08:55 04:31 Hold Purple Top SEE NOTE Sodium 142 Potassium 3.3 Chloride 111 H Carbon Dioxide 24 Anion Gap 10 L BUN 16 Creatinine 0.69 Estim Creat Clear Calc 68.7 Estimated GFR > 60 Random Glucose 92 Estimat Average Glucose 85 Hemoglobin A1c % 4.6 Calcium 8.5 Magnesium 1.8 COVID-19 ([facility]) Negative COVID-19 Clin Com See Note Discharge Plan Discharge Anticipated Discharge Date/Time: 10/22/23 08:49 Patient Disposition: Home, Self-Care Discharge Diagnosis: Hypokalemia, UTI Referrals: Scarlet Frey MD [Primary Care Provider] - 1 Week Discharge Medications: New spironolactone 25 mg Tablet 25 mg PO BID Qty: 60 0RF Protocol: Hold for SBP< HOLD for SBP < : 90 cefuroxime axetil 250 mg tablet 250 mg PO BID Qty: 6 0RF Continued albuterol sulfate [ProAir HFA] 90 mcg/actuation HFA aerosol inhaler 2 puff inhalation Q4-6H PRN (Reason: shortness of breath or wheezing) Qty: 8.5 0RF clonazepam 1 mg tablet 1 mg PO BID aripiprazole 5 mg tablet 5 mg PO DAILY potassium chloride 20 mEq tablet extended release 20 meq PO BID Qty: 60 0RF acetaminophen 325 mg Tablet 650 mg PO Q6H PRN (Reason: Pain) Discharge Orders: Discharge Order (Routine); Ordered 10/22/23 Ordered By: Ori Joseph Diet: Advance to usual diet Activity on Discharge: As tolerated Stand Alone Forms: Patient Portal Discharge page Other Ambulatory Orders: Basic Metabolic Panel Fasting (Routine) Timeframe: 20231025 Facility: [facility] - Location: Laboratory Ordered By: Ori [place] Care Plan Goals: recovery from hypokelamia, uti Health Concerns: chronic low potassium uti Plan of Treatment: take potassium supplement and magenesium supplment as directed and follow up with the kidney doctor, you are encourage to eat high potassium diet such banana take Cefuroxime for UTI to have lab work doen on 10/25/23 and follow up with Dr. Metcalf's office (office will call you with appointment) Assessment: See above
[2023-10-22] MEDS: 0.9 % Sodium Chloride Flush 3 ML SYRINGE IVFLUSH (08:57)
[2023-10-22] MEDS: Potassium Chloride ER 20 MEQ TAB.ER.PRT 40 MEQ PO ×2 (08:57→14:16)
[2023-10-22] MEDS: Spironolactone 25 MG TABLET PO (08:57)
[2023-10-22] MEDS: Acetaminophen 325 MG TABLET 650 MG PO (08:58)
[2023-10-22] MEDS: clonazePAM 1 MG TABLET PO (08:58)
--- NOTE | 2023-10-22 13:29 | MHC.CM.PN ---
pt dcd home no servies
[2023-10-28 13:28] LABS: Aldosterone/Renin Ratio 5.6 Ratio (0.9-28.9); Plasma Renin Activity 0.18 ng/mL/h (0.25-5.82)
== END 2023-10-22 14:26 | disposition home or self-care (01) | DRG 463 ==
LOC: HO.ED 18:26 → HO.EDOVER 22:06 → HO.IMC 10-19 01:50 → HO.S3 10-21 11:02
PROVIDERS: Internal Medicine Nephrology; Nurse Practitioner Family; Physician Assistant; Physician Assistant Medical; Admitting Provider Student in an Organized Health Care Education/Training Program; Emergency Provider Student in an Organized Health Care Education/Training Program; PCP Internal Medicine; Visit Provider Internal Medicine
DX: N39.0 Urinary tract infection, site not specified (principal); B95.1 Streptococcus, group B, as the cause of diseases classified elsewhere; E87.6 Hypokalemia; F39 Unspecified mood [affective] disorder; E16.2 Hypoglycemia, unspecified; N20.0 Calculus of kidney; F17.210 Nicotine dependence, cigarettes, uncomplicated; Z71.6 Tobacco abuse counseling; J45.20 Mild intermittent asthma, uncomplicated; R31.9 Hematuria, unspecified; Z20.822 Contact with and (suspected) exposure to COVID-19; Z79.899 Other long term (current) drug therapy
CPT/HCPCS: 36415; 74176; 74177; 80048; 80053; 81001; 81025; 82088; 82550; 82570; 82947; 83036; 83605; 83735; 83930; 83935; 84100; 84132; 84133; 84300; 84443; 84702; 85025; 87086; 87147; 87635; 93005; 99285; J0696; J1650; J1885; J2270; J2930; J3480; Q9967

== ENCOUNTER → 2023-10-18 15:17 | Outpatient (BNV) | payer OTHER, SELFPAY | PROVIDERS: Admitting Provider Student in an Organized Health Care Education/Training Program; Emergency Provider Student in an Organized Health Care Education/Training Program; Visit Provider Internal Medicine Cardiovascular Disease | DX: I45.81 Long QT syndrome (principal) | CPT/HCPCS: 93010 ==

== ENCOUNTER → 2023-10-18 20:44 | Outpatient (BNV) | payer OTHER, SELFPAY | PROVIDERS: Admitting Provider Student in an Organized Health Care Education/Training Program; Emergency Provider Student in an Organized Health Care Education/Training Program; Visit Provider Physician Assistant Medical | DX: N17.9 Acute kidney failure, unspecified (principal); E87.6 Hypokalemia | CPT/HCPCS: 99223; 99232; 99233; 99239 ==

== ENCOUNTER 2023-11-12 11:08 | Emergency (ER) | payer OTHER, SELFPAY ==
[2023-11-12 12:10] VITALS: BP 138/90; PULSE 97; RESP 18; TEMP 36.7; O2SAT 99; BMI 22.9
--- NOTE | 2023-11-12 12:11 | ED_ITS ---
HPI - General Adult General Chief complaint: Abdominal Pain Stated complaint: Abd pain/R leg pain no inj Related Data Home Medications Medication Instructions Recorded Confirmed aripiprazole 5 mg tablet 5 mg PO DAILY 07/18/23 10/18/23 clonazepam 1 mg tablet 1 mg PO BID 07/18/23 10/18/23 acetaminophen 325 mg tablet 650 mg PO Q6H PRN Pain 10/18/23 10/18/23 Previous Rx's Medication Instructions Recorded potassium chloride 20 mEq 20 meq PO BID #60 tabs 07/24/23 tablet,extended release albuterol sulfate 90 mcg/actuation 2 puff inhalation Q4-6H PRN 07/30/23 aerosol inhaler (ProAir HFA) shortness of breath or wheezing #8.5 grams cefuroxime axetil 250 mg tablet 250 mg PO BID #6 tabs 10/22/23 spironolactone 25 mg tablet 25 mg PO BID #60 tabs 10/22/23 Allergies Allergy/AdvReac Type Severity Reaction Status Date / Time zolpidem [From Ambien] Allergy Difficulty Verified 10/18/23 12:10 Breathing iodine AdvReac Rash Verified 10/18/23 12:10 [facility] Past Medical History Medical History Asthma Chronic lung disease Social History Social History Household Members: Family Housing: Apartment Do you presently have visiting nurse or other home services: No Unable to assess alcohol history related to: Unknown Alcohol intake: current Alcohol intake frequency: does not drink Comment: Refusing all alarms. Patient Tobacco Use Status: Current everyday Tobacco user Tobacco use type: Cigarette Cigarettes Per Day: 6 e-Cigarette/Vaping Use: Currently Using Second Hand Smoke Exposure: No Substance Use Type: Marijuana Advance Directives: No service: No Physical Exam ED Vital Signs: BMI result Body Mass Index 22.9 Course Course Course Narrative: This is an RME: Additional HPI, ROS, PE not included below will be deferred to primary provider. This is a [id number] presenting to the emergency department with complaints of right flank pain and abdominal distention x 3 days. Endorsing urinary urgency. Hx of kidney stones, sxs feel similar. No fevers, chills, vomiting or diarrhea. Plan: Labs, UA, CT abdomen with pelvis Reevaluation(s) Reevaluation #1: Patient left without completing treatment Medical Decision Making Lab Data 11/12/23 12:25 11/12/23 12:25 Labs: Lab Results 11/12/23 Range/Units 12:25 WBC 9.3 (4.8-10.8) X10*3/uL RBC 4.39 (4.20-5.50) X10*6/uL Hgb 12.2 (12.0-16.0) g/dl Hct 36.6 L (37.0-47.0) % MCV 83.4 (80.0-98.0) fL MCH 27.8 (27.0-33.0) pg MCHC 33.3 (31.0-35.0) g/dl RDW 13.1 (11.0-16.0) % Plt Count 268 (160-400) X10*3/uL MPV 9.5 (9.4-12.3) fL Immature Gran % (Auto) 0.3 (0.0-0.4) % Neut % (Auto) 69.4 (45-73) % Lymph % (Auto) 22.0 (20-40) % [place] % (Auto) 6.5 (2-11) % Eos % (Auto) 1.4 (0-4) % Baso % (Auto) 0.4 (0-2) % Lymph # (Auto) 2.0 (1.2-4.9) X10*3/uL [place] # (Auto) 0.6 (0.1-1.2) X10*3/uL Eos # (Auto) 0.1 (0.0-0.4) X10*3/uL Baso # (Auto) 0.0 (0.0-0.2) X10*3/uL Abs Immat Gran (auto) 0.03 (0.00-0.03) X10*3/uL Absolute Neuts (auto) 6.4 (2.0-8.3) x10*3/uL Absolute Nucleated RBC 0.000 (0.0-0.012) X10*3/uL Nucleated RBC % (auto) 0.0 (0.0-0.2) /100WBC Sodium 139 (135-145) mmol/L Potassium 3.1 L (3.3-5.1) mmol/L Chloride 107 (96-108) mmol/L Carbon Dioxide 25 (22-29) mmol/L Anion Gap 10 L (12-20) BUN 13 (9-16) mg/dL Creatinine 0.69 (0.5-1.4) mg/dL Estim Creat Clear Calc 75.3 Estimated GFR > 60 Random Glucose 87 (60-115) mg/dL Calcium 9.0 (8.4-10.2) mg/dL Total Bilirubin 0.4 (0.0-1.0) mg/dL Direct Bilirubin 0.1 (0.0-0.5) mg/dL AST 19 (5-31) U/L ALT 9 (0-31) U/L Alkaline Phosphatase 65 (39-117) U/L Total Protein 7.2 (6.5-8.0) g/dL Albumin 3.7 (3.5-5.0) g/dL Lipase 34 (8-78) U/L Beta HCG, Quant < 2 mIU/mL Urine Color Yellow Urine Appearance Clear Urine pH 8.0 (5.0-9.0) Ur Specific [place] 1.010 (1.005-1.025) Urine Protein Negative (Neg-Trace) mg/dL Urine Glucose (UA) Negative (Negative) mg/dL Urine Ketones Negative (Negative) mg/dL Urine Blood Negative (Negative) Urine Nitrite Negative (Negative) Ur Leukocyte Esterase Trace H (Negative) Urine RBC 0-2 (0-2) /HPF Urine WBC 6-10 H (0-5) /HPF Ur Squamous Epith Cells 11-20 (0-2) /HPF Urine Bacteria None Seen (None Seen) Hyaline Casts 0-2 (0-2) /LPF Discharge Plan Discharge Clinical Impression: Abdominal pain Patient Disposition: Left W/O Completing Treatment Prescriptions: No Action albuterol sulfate [ProAir HFA] 90 mcg/actuation HFA aerosol inhaler 2 puff inhalation Q4-6H PRN (Reason: shortness of breath or wheezing) Qty: 8.5 0RF clonazepam 1 mg tablet 1 mg PO BID aripiprazole 5 mg tablet 5 mg PO DAILY potassium chloride 20 mEq tablet extended release 20 meq PO BID Qty: 60 0RF acetaminophen 325 mg Tablet 650 mg PO Q6H PRN (Reason: Pain) spironolactone 25 mg Tablet 25 mg PO BID Qty: 60 0RF Protocol: Hold for SBP< HOLD for SBP < : 90 cefuroxime axetil 250 mg tablet 250 mg PO BID Qty: 6 0RF Discharge Date/Time: 11/12/23 13:36
[2023-11-12 12:30] LABS: MANUAL DIFF FLAG NO
[2023-11-12 12:31] LABS: Basophils Percent Auto 0.4 % (0-2); Eosinophils Absolute Auto 0.1 X10*3/uL (0.0-0.4); Eosinophils Percent Auto 1.4 % (0-4); Hematocrit 36.6 % (37.0-47.0); Hemoglobin 12.2 g/dl (12.0-16.0); Imm Gran Abs Auto 0.03 X10*3/uL (0.00-0.03); Imm Gran Pct Auto 0.3 % (0.0-0.4); Mean Corpuscular HGB Conc 33.3 g/dl (31.0-35.0); Mean Corpuscular Hemoglobin 27.8 pg (27.0-33.0); Mean Corpuscular Volume 83.4 fL (80.0-98.0); Mean Platelet Volume 9.5 fL (9.4-12.3); Monocytes Absolute Auto 0.6 X10*3/uL (0.1-1.2); Monocytes Percent Auto 6.5 % (2-11); Neutrophils Absolute Auto 6.4 x10*3/uL (2.0-8.3); Neutrophils Percent Auto 69.4 % (45-73); Platelet Count 268 X10*3/uL (160-400); Red Blood Count 4.39 X10*6/uL (4.20-5.50); Red Cell Distribution Width 13.1 % (11.0-16.0); White Blood Count 9.3 X10*3/uL (4.8-10.8)
[2023-11-12 12:33] LABS: Appearance Urine Clear; Color Urine Yellow; Glucose Urine UA Negative (Negative); Leukocyte Esterase Urine Trace (Negative); Nitrite Urine Negative (Negative); UMIC TRIGGER UACC YES; Urine Blood Negative (Negative); Urine Ketones Negative (Negative); Urine Protein Negative (Neg-Trace)
[2023-11-12 12:38] LABS: Bacteria Urine None Seen (None Seen); Hyaline Casts Urine 0-2 /LPF (0-2); RBC Urine 0-2 /HPF (0-2); UACC Culture Trigger YES
[2023-11-12 12:54] LABS: Alanine Aminotransferase 9 U/L (0-31); Albumin Level 3.7 g/dL (3.5-5.0); Alkaline Phosphatase 65 U/L (39-117); Anion Gap 10 (12-20); Aspartate Amino Transferase 19 U/L (5-31); Bilirubin Direct 0.1 mg/dL (0.0-0.5); Bilirubin Total 0.4 mg/dL (0.0-1.0); Blood Urea Nitrogen 13 mg/dL (9-16); Carbon Dioxide 25 mmol/L (22-29); Chloride 107 mmol/L (96-108); Creatinine Clr Calc Pharmacy 75.3; Estimated Glomerular Filt Rate > 60; Glucose Random 87 mg/dL (60-115); HCG Quantitative < 2 mIU/mL; Lipase 34 U/L (8-78); Potassium 3.1 mmol/L (3.3-5.1); Sodium 139 mmol/L (135-145); Total Protein 7.2 g/dL (6.5-8.0)
== END 2023-11-12 13:36 | disposition left against medical advice (07) ==
PROVIDERS: Physician Assistant Medical; Emergency Provider Emergency Medicine; PCP Internal Medicine
DX: R10.9 Unspecified abdominal pain (principal); R14.0 Abdominal distension (gaseous); M79.604 Pain in right leg; Z79.899 Other long term (current) drug therapy
CPT/HCPCS: 36415; 80048; 80076; 81001; 83690; 84702; 85025; 87086; 87147; 99282; 99283